=== PATIENT | female | born 1970 | race African-American/Black ===

== ENCOUNTER 2017-01-29 14:42 | Emergency (ER) | payer MEDICARE, MEDICAID ==
[~2017-01-29] VITALS: Ht 157.5 cm; Wt 66.0 kg
[~2017-01-29 14:42] MED LIST: ALPR1TAB2 PO; DIPH50CA4 PO; FLUT1DIS3 INH; LAMO200T PO; SIMV80TA70 PO; TOPI-35 PO; TRAZ-132 PO; VALS80TA25 PO; VENL-180 PO; ZIPR80CA9 PO; [UNRECOGNIZED DRUG - OTHER] PO
[2017-01-29] MEDS ORDERED: HYDROCODONE/ACETAMINOPHEN 5/325MG TABLET PO ONE (16:15)
[2017-01-29 18:39] VITALS: BP 110/65
== END 2017-01-29 18:50 | disposition home or self-care (01) ==
LOC: ER 17:53
DX: M25.561 Pain in right knee (principal); M25.562 Pain in left knee; J45.909 Unspecified asthma, uncomplicated; J44.9 Chronic obstructive pulmonary disease, unspecified; I10 Essential (primary) hypertension; Z87.898 Personal history of other specified conditions; F17.200 Nicotine dependence, unspecified, uncomplicated; Z92.29 Personal history of other drug therapy
CPT/HCPCS: 73562; 99284

== ENCOUNTER 2017-03-24 18:38 | Emergency (ER) | payer MEDICARE, MEDICAID ==
[~2017-03-24] VITALS: Ht 170.2 cm; Wt 91.0 kg
[2017-03-24 20:30] VITALS: BP 149/87
[2017-03-24] MEDS ORDERED: SODIUM CHLORIDE 0.9% 1,000 ML IV ONE (20:37)
[2017-03-24] MEDS ORDERED: MORPHINE SULFATE 4 MG/ML CPJ (NOT FOR IM USE) IV STA (20:37)
[2017-03-25] MEDS ORDERED: NICOTINE 7MG PATCH TD SCH (00:15)
[2017-03-25] MEDS ORDERED: HYDROCODONE/ACETAMINOPHEN 5/325MG TABLET PO ONE (00:30)
== END 2017-03-25 02:30 | disposition home or self-care (01) ==
LOC: ER 19:10
DX: M25.572 Pain in left ankle and joints of left foot (principal); M32.9 Systemic lupus erythematosus, unspecified; I10 Essential (primary) hypertension; J44.9 Chronic obstructive pulmonary disease, unspecified; Z88.6 Allergy status to analgesic agent; Z91.040 Latex allergy status; Z79.899 Other long term (current) drug therapy
CPT/HCPCS: 29505; 73610; 73630; 73700; 96361; 96374; 99285; J2270; J7030

== ENCOUNTER 2017-04-03 21:47 | Emergency (ER) | payer MEDICARE, MEDICAID ==
[~2017-04-03] VITALS: Ht 157.5 cm; Wt 114.0 kg
[~2017-04-03 21:47] MED LIST changes: -TOPI-35 PO; +TOPI100T37 PO
[2017-04-03] MEDS ORDERED: IPRATROPIUM BROMIDE (0.02%) 0.5MG/2.5ML NEB HHN STA (22:34)
[2017-04-03] MEDS ORDERED: METHYLPREDNISOLONE SOD SUCC 125 MG/2 ML VIAL IV STA (22:34)
[2017-04-03] MEDS ORDERED: ALBUTEROL (0.083%) 2.5MG/3ML NEB HHN STA (22:34)
[2017-04-03] MEDS ORDERED: LEVOFLOXACIN 750MG PREMIX 150 ML IV ONE (22:45)
[2017-04-03] MEDS ORDERED: ASPIRIN 81MG TABLET PO ONE (22:45)
[2017-04-03 23:19] LABS: BASOPHILS % 0.5 % (0.0-2.0); EOSINOPHILS % 0.9 % (0.0-5.0); HEMATOCRIT. 45.9 % (36.0-48.0); HEMOGLOBIN. 15.4 g/dL (12.0-16.0); LYMPHOCYTES % 22.8 % (20.0-50.0); MEAN CORPUSCULAR HEMOGLOBIN 31.5 pg (28.0-32.0); MEAN CORPUSCULAR VOLUME 93.8 fL (81.0-99.0); MEAN PLATELET VOLUME 7.8 fl (7.4-10.4); MONOCYTES % 10.6 % (2.0-8.0); NEUTROPHILS % 65.2 % (40.0-76.0); PLATELET 213 x1000/uL (130-400); RED BLOOD CELL COUNT 4.89 mill/uL (4.2-5.4); RED CELL DISTRIBUTION WIDTH 14.2 % (11.6-14.6)
[2017-04-03 23:24] LABS: INR 1.3
[2017-04-03 23:32] LABS: CARBON DIOXIDE 28 mEq/L (21-32); CHLORIDE 104 mEq/L (98-107); TROPONIN I < 0.02 ng/mL (0.00-0.04)
[2017-04-04 01:06] VITALS: BP 156/78
[2017-04-07] MEDS ORDERED: SOLI10TA PO (22:14)
[2017-05-12] MEDS ORDERED: FURO40TA5 PO (21:29)
[2017-05-12] MEDS ORDERED: POTA10TA11 PO (21:29)
== END 2017-04-04 01:47 | disposition home or self-care (01) ==
LOC: ER 22:36
DX: J44.1 Chronic obstructive pulmonary disease with (acute) exacerbation (principal); M32.9 Systemic lupus erythematosus, unspecified; I10 Essential (primary) hypertension; E66.9 Obesity, unspecified; F17.210 Nicotine dependence, cigarettes, uncomplicated; Z88.6 Allergy status to analgesic agent; Z88.3 Allergy status to other anti-infective agents; Z91.040 Latex allergy status; Z68.42 Body mass index [BMI] 45.0-49.9, adult; Z71.6 Tobacco abuse counseling
CPT/HCPCS: 36415; 71010; 80053; 83880; 84484; 85025; 85610; 93005; 94640; 96365; 96375; 99285; 99406; J1956; J2930; J7611

== ENCOUNTER 2017-04-06 17:11 | Inpatient (IN) | payer MEDICARE, MEDICAID ==
[~2017-04-06] VITALS: Ht 157.5 cm; Wt 89.8 kg
[~2017-04-06 17:11] MED LIST changes: +TOPI-35 PO; -TOPI100T37 PO
[2017-04-06] MEDS ORDERED: IPRATROPIUM BROMIDE (0.02%) 0.5MG/2.5ML NEB HHN STA (17:33)
[2017-04-06] MEDS ORDERED: ALBUTEROL (0.083%) 2.5MG/3ML NEB HHN STA (17:33)
[2017-04-06] MEDS: MAGNESIUM 2 G PREMIX 50 ML IV STA ×2 (17:59→18:01)
[2017-04-06] MEDS: ACETAMINOPHEN 325MG TABLET PO ONE ×2 (17:59→18:02)
[2017-04-06] MEDS: METHYLPREDNISOLONE SOD SUCC 125 MG/2 ML VIAL IV STA ×2 (17:59→18:01)
[2017-04-06] MEDS ORDERED: ONDANSETRON HCL 4MG/2ML VIAL IV ONE (19:45)
[2017-04-06] MEDS ORDERED: SODIUM CHLORIDE 0.9% 500 ML IV ONE (19:47)
[2017-04-06] MEDS ORDERED: HYDROCODONE/ACETAMINOPHEN 5/325MG TABLET PO ONE (20:00)
[2017-04-06 21:14] LABS: HEMATOCRIT. 46.8 % (36.0-48.0); HEMOGLOBIN. 15.6 g/dL (12.0-16.0); MEAN CORPUSCULAR HEMOGLOBIN 31.2 pg (28.0-32.0); MEAN CORPUSCULAR VOLUME 93.8 fL (81.0-99.0); MEAN PLATELET VOLUME 8.1 fl (7.4-10.4); PLATELET 199 x1000/uL (130-400); RED BLOOD CELL COUNT 4.99 mill/uL (4.2-5.4); RED CELL DISTRIBUTION WIDTH 14.3 % (11.6-14.6)
[2017-04-06 21:25] LABS: CHLORIDE 105 mEq/L (98-107)
[2017-04-06 21:33] LABS: CARBON DIOXIDE 22 mEq/L (21-32)
[2017-04-06 21:39] LABS: INR 1.1
[2017-04-06] MEDS ORDERED: DOCUSATE SODIUM 100MG CAPSULE PO PRN (21:45)
[2017-04-06] MEDS ORDERED: DIPHENHYDRAMINE 50MG/ML VIAL IV PRN (21:45)
[2017-04-06] MEDS ORDERED: MAGNESIUM/ALUMINUM HYDROXIDE/SIMETHICONE 30ML UDC PO PRN (21:45)
[2017-04-06] MEDS ORDERED: ACETAMINOPHEN 325MG TABLET PO PRN (21:45)
[2017-04-06] MEDS ORDERED: IPRATROPIUM/ALBUTEROL 0.5-3(2.5)MG/3ML NEB INH PRN (21:45)
[2017-04-06 21:52] LABS: PLATELET ESTIMATE NORMAL
[2017-04-06] MEDS: LORAZEPAM 2MG/ML CPJ IV PRN (23:02)
[2017-04-07 00:03] LABS: CARBON DIOXIDE 25 mEq/L (21-32); CHLORIDE 106 mEq/L (98-107); TROPONIN I < 0.02 ng/mL (0.00-0.04)
[2017-04-07] MEDS: METHYLPREDNISOLONE SOD SUCC 125 MG/2 ML VIAL IV SCH ×2 (02:05→20:26)
[2017-04-07] MEDS: LEVOFLOXACIN 500MG PREMIX 100 ML IV SCH (02:10)
[2017-04-07] MEDS: HYDROCODONE/ACETAMINOPHEN 5/325MG TABLET PO PRN (02:16)
[2017-04-07] MEDS: ONDANSETRON HCL 4MG/2ML VIAL IV PRN ×2 (02:17→20:40)
[2017-04-07] MEDS: DEXT 5%/0.45% NACL 1000ML 1,000 ML IV SCH ×2 (02:27→17:23)
[2017-04-07] MEDS: GUAIFENESIN 200MG/10ML SUGAR FREE UDC PO PRN ×4 (04:36→23:06)
[2017-04-07 05:24] LABS: HEMATOCRIT. 46.8 % (36.0-48.0); HEMOGLOBIN. 15.5 g/dL (12.0-16.0); MEAN CORPUSCULAR HEMOGLOBIN 30.8 pg (28.0-32.0); MEAN CORPUSCULAR VOLUME 93.4 fL (81.0-99.0); MEAN PLATELET VOLUME 7.8 fl (7.4-10.4); PLATELET 226 x1000/uL (130-400); RED BLOOD CELL COUNT 5.01 mill/uL (4.2-5.4); RED CELL DISTRIBUTION WIDTH 14.5 % (11.6-14.6)
[2017-04-07 05:39] LABS: CARBON DIOXIDE 26 mEq/L (21-32); CHLORIDE 107 mEq/L (98-107); LDL CHOLESTEROL 86 mg/dL (5-100); TROPONIN I < 0.02 ng/mL (0.00-0.04)
[2017-04-07 05:40] LABS: HDL CHOLESTEROL 60 mg/dL (40-59)
[2017-04-07 06:42] LABS: PLATELET ESTIMATE NORMAL
[2017-04-07] MEDS: ENOXAPARIN 30MG/0.3ML SYR SUBCUT SCH ×2 (09:38→20:28)
[2017-04-07 12:00] VITALS: BP 145/95
[2017-04-07] MEDS: HYDROMORPHONE HCL/PF 2MG/ML CPJ IV PRN ×3 (12:42→23:14)
[2017-04-07 12:53] VITALS: BP 145/95
[2017-04-07 16:00] VITALS: BP 161/98
[2017-04-07] MEDS: IPRATROPIUM/ALBUTEROL 0.5-3(2.5)MG/3ML NEB HHN SCH ×2 (17:15→20:51)
[2017-04-07] MEDS: NICOTINE 14MG PATCH TD SCH (17:16)
[2017-04-07 20:00] VITALS: BP 136/82
[2017-04-07] MEDS: GUAIFENESIN 600MG ER TABLET PO SCH (20:27)
[2017-04-07] MEDS: LORAZEPAM 2MG/ML CPJ IV PRN (20:40)
[2017-04-07] MEDS ORDERED: SOLI10TA4 PO (22:14)
[2017-04-08] VITALS (9 sets, daily range): BP systolic 120–167; BP diastolic 87–106
[2017-04-08] MEDS: IPRATROPIUM/ALBUTEROL 0.5-3(2.5)MG/3ML NEB HHN SCH ×5 (00:40→21:05)
[2017-04-08] MEDS: LEVOFLOXACIN 500MG PREMIX 100 ML IV SCH (01:25)
[2017-04-08] MEDS: ONDANSETRON HCL 4MG/2ML VIAL IV PRN ×4 (03:55→20:44)
[2017-04-08] MEDS: METHYLPREDNISOLONE SOD SUCC 125 MG/2 ML VIAL IV SCH ×4 (03:55→20:42)
[2017-04-08] MEDS: GUAIFENESIN 200MG/10ML SUGAR FREE UDC PO PRN (05:03)
[2017-04-08] MEDS: HYDROMORPHONE HCL/PF 2MG/ML CPJ IV PRN ×3 (05:03→21:18)
[2017-04-08] MEDS: CLONIDINE 0.1MG TABLET PO PRN (05:03)
[2017-04-08 07:50] LABS: CHLORIDE 105 mEq/L (98-107)
[2017-04-08 07:55] LABS: CARBON DIOXIDE 27 mEq/L (21-32)
[2017-04-08 08:17] LABS: HEMATOCRIT. 44.3 % (36.0-48.0); HEMOGLOBIN. 14.9 g/dL (12.0-16.0); MEAN CORPUSCULAR HEMOGLOBIN 31.4 pg (28.0-32.0); MEAN CORPUSCULAR VOLUME 93.7 fL (81.0-99.0); MEAN PLATELET VOLUME 8.4 fl (7.4-10.4); PLATELET 210 x1000/uL (130-400); RED BLOOD CELL COUNT 4.73 mill/uL (4.2-5.4); RED CELL DISTRIBUTION WIDTH 14.4 % (11.6-14.6)
[2017-04-08] MEDS: FUROSEMIDE 40MG/4ML VIAL IV SCH (09:00)
[2017-04-08] MEDS: NICOTINE 14MG PATCH TD SCH (09:01)
[2017-04-08] MEDS: GUAIFENESIN 600MG ER TABLET PO SCH ×2 (09:01→20:43)
[2017-04-08] MEDS: ENOXAPARIN 30MG/0.3ML SYR SUBCUT SCH ×2 (09:01→20:44)
[2017-04-08] MEDS: DEXT 5%/0.45% NACL 1000ML 1,000 ML IV SCH (09:03)
[2017-04-08] MEDS ORDERED: [UNRECOGNIZED DRUG - OTHER] PO SCH (10:15)
[2017-04-08] MEDS ORDERED: NORE0.3520 PO (10:37)
[2017-04-08] MEDS ORDERED: NON FORMULARY PATIENT HOME MED EA XX SCH (13:15)
[2017-04-08 13:45] LABS: PLATELET ESTIMATE NORMAL
[2017-04-08] MEDS: LORAZEPAM 2MG/ML CPJ IV PRN (18:08)
[2017-04-08] MEDS: DIPHENHYDRAMINE 50MG CAPSULE PO SCH (20:42)
[2017-04-08] MEDS: LAMOTRIGINE 100MG TABLET PO SCH (20:43)
[2017-04-08] MEDS: ZIPRASIDONE HCL 80MG CAPSULE PO SCH (20:43)
[2017-04-08] MEDS: TRAZODONE HCL 100MG TABLET PO SCH (20:43)
[2017-04-08] MEDS: ATORVASTATIN CALCIUM 40MG TABLET PO SCH (20:43)
[2017-04-08] MEDS: TOPIRAMATE 100MG TABLET PO SCH (20:44)
[2017-04-08] MEDS ORDERED: MEDICATION NOT ON FORMULARY EA (Lamotrigine 1 TAB) PO SCH (21:00)
[2017-04-09] VITALS (7 sets, daily range): BP systolic 133–163; BP diastolic 81–100
[2017-04-09] MEDS: CLONIDINE 0.1MG TABLET PO PRN (00:22)
[2017-04-09] MEDS: HYDROMORPHONE HCL/PF 2MG/ML CPJ IV PRN ×5 (00:52→22:50)
[2017-04-09] MEDS: GUAIFENESIN 200MG/10ML SUGAR FREE UDC PO PRN ×5 (00:52→22:49)
[2017-04-09] MEDS: IPRATROPIUM/ALBUTEROL 0.5-3(2.5)MG/3ML NEB HHN SCH ×6 (01:10→20:44)
[2017-04-09] MEDS: LEVOFLOXACIN 500MG PREMIX 100 ML IV SCH (01:20)
[2017-04-09] MEDS: ONDANSETRON HCL 4MG/2ML VIAL IV PRN ×3 (03:29→20:47)
[2017-04-09] MEDS: METHYLPREDNISOLONE SOD SUCC 125 MG/2 ML VIAL IV SCH ×4 (03:29→20:47)
[2017-04-09] MEDS: DEXT 5%/0.45% NACL 1000ML 1,000 ML IV SCH ×2 (03:30→09:56)
[2017-04-09] MEDS ORDERED: MEDICATION NOT ON FORMULARY EA (Simvastatin 1 TAB) PO SCH (09:00)
[2017-04-09] MEDS ORDERED: VENLAFAXINE HCL 75MG TABLET PO SCH (09:00)
[2017-04-09] MEDS ORDERED: NORETHINDRONE 5 MG PO SCH (09:00)
[2017-04-09] MEDS: FUROSEMIDE 40MG/4ML VIAL IV SCH (09:20)
[2017-04-09] MEDS: ENOXAPARIN 30MG/0.3ML SYR SUBCUT SCH ×2 (09:21→20:46)
[2017-04-09] MEDS: VENLAFAXINE HCL 50MG TABLET PO SCH (09:21)
[2017-04-09] MEDS: TOPIRAMATE 100MG TABLET PO SCH ×2 (09:21→20:47)
[2017-04-09] MEDS: VENLAFAXINE HCL 75MG TABLET PO SCH (09:31)
[2017-04-09] MEDS: NICOTINE 14MG PATCH TD SCH (09:32)
[2017-04-09] MEDS: GUAIFENESIN 600MG ER TABLET PO SCH ×2 (09:33→20:48)
[2017-04-09] MEDS: LORAZEPAM 2MG/ML CPJ IV PRN ×2 (18:37→22:50)
[2017-04-09] MEDS: TRAZODONE HCL 100MG TABLET PO SCH (20:47)
[2017-04-09] MEDS: ATORVASTATIN CALCIUM 40MG TABLET PO SCH (20:47)
[2017-04-09] MEDS: DIPHENHYDRAMINE 50MG CAPSULE PO SCH (20:47)
[2017-04-09] MEDS: ZIPRASIDONE HCL 80MG CAPSULE PO SCH (20:48)
[2017-04-09] MEDS: LAMOTRIGINE 100MG TABLET PO SCH (20:48)
[2017-04-10] VITALS: BP 149/99
[2017-04-10] MEDS: LEVOFLOXACIN 500MG PREMIX 100 ML IV SCH (00:06)
[2017-04-10] MEDS: IPRATROPIUM/ALBUTEROL 0.5-3(2.5)MG/3ML NEB HHN SCH ×4 (00:48→12:13)
[2017-04-10] MEDS: METHYLPREDNISOLONE SOD SUCC 125 MG/2 ML VIAL IV SCH ×2 (03:38→08:59)
[2017-04-10] MEDS: ONDANSETRON HCL 4MG/2ML VIAL IV PRN (03:38)
[2017-04-10 04:00] VITALS: BP 145/92
[2017-04-10] MEDS: GUAIFENESIN 200MG/10ML SUGAR FREE UDC PO PRN (05:10)
[2017-04-10] MEDS: HYDROMORPHONE HCL/PF 2MG/ML CPJ IV PRN (05:10)
[2017-04-10 07:27] LABS: BASOPHILS % 0.1 % (0.0-2.0); EOSINOPHILS % 0.1 % (0.0-5.0); HEMATOCRIT. 43.5 % (36.0-48.0); HEMOGLOBIN. 14.4 g/dL (12.0-16.0); LYMPHOCYTES % 7.6 % (20.0-50.0); MEAN CORPUSCULAR HEMOGLOBIN 31.2 pg (28.0-32.0); MEAN CORPUSCULAR VOLUME 94.1 fL (81.0-99.0); MONOCYTES % 6.9 % (2.0-8.0); NEUTROPHILS % 85.3 % (40.0-76.0); PLATELET 214 x1000/uL (130-400); RED BLOOD CELL COUNT 4.63 mill/uL (4.2-5.4); RED CELL DISTRIBUTION WIDTH 14.4 % (11.6-14.6)
[2017-04-10 08:04] LABS: CARBON DIOXIDE 30 mEq/L (21-32); CHLORIDE 105 mEq/L (98-107)
[2017-04-10 08:07] VITALS: BP 136/86
[2017-04-10] MEDS: NICOTINE 14MG PATCH TD SCH (08:56)
[2017-04-10] MEDS: TOPIRAMATE 100MG TABLET PO SCH (08:57)
[2017-04-10] MEDS: GUAIFENESIN 600MG ER TABLET PO SCH (08:57)
[2017-04-10] MEDS: VENLAFAXINE HCL 75MG TABLET PO SCH (08:57)
[2017-04-10] MEDS: VENLAFAXINE HCL 50MG TABLET PO SCH (08:58)
[2017-04-10] MEDS: FUROSEMIDE 40MG/4ML VIAL IV SCH (08:58)
[2017-04-10] MEDS: ENOXAPARIN 30MG/0.3ML SYR SUBCUT SCH (09:03)
[2017-04-10 09:08] LABS: BG BASE EXCESS 2.6 mmol/L (-2.0-2.0); BG CARBOXYHEMOGLOBIN 0.8 % (0.5-1.5); BG FRACTION INSPIRED OXYGEN 32; BG HCO3 ACT 29.1 mmol/L (22.0-26.0); BG METHEMOGLOBIN 0.3 % (0.0-1.5); BG OXYHEMOGLOBIN 94.9 % (94.0-97.0); BG PCO2 51.6 mmHg (35.0-45.0); BG PH 7.369 (7.350-7.450); BG PO2 84.4 mmHg (75.0-100.0); BG SAMPLE SITE LEFT BRACHIAL; BG TOTAL HEMOGLOBIN 15.9 g/dL (12.0-18.0); BG VENT MODE MASK - BIPAP
[2017-04-10] MEDS: HYDROCODONE/ACETAMINOPHEN 5/325MG TABLET PO PRN (09:30)
[2017-04-10 12:05] VITALS: BP 145/83
== END 2017-04-10 13:10 | disposition home or self-care (01) | DRG 189 ==
LOC: ER 17:55 → 6WST 21:35 → ENRESERV 04-07 09:12
PROVIDERS: ADMIT Internal Medicine; ATTEND Internal Medicine
PROC: 5A09357 Assistance with Respiratory Ventilation, Less than 24 Consecutive Hours, Continuous Positive Airway Pressure (ICD-10-PCS; principal; 2017-04-08)
DX: J96.00 Acute respiratory failure, unspecified whether with hypoxia or hypercapnia (principal); J18.9 Pneumonia, unspecified organism; J44.0 Chronic obstructive pulmonary disease with (acute) lower respiratory infection; J44.1 Chronic obstructive pulmonary disease with (acute) exacerbation; R65.10 Systemic inflammatory response syndrome (SIRS) of non-infectious origin without acute organ dysfunction; E66.01 Morbid (severe) obesity due to excess calories; E78.5 Hyperlipidemia, unspecified; E87.6 Hypokalemia; F17.210 Nicotine dependence, cigarettes, uncomplicated; F31.9 Bipolar disorder, unspecified; G47.30 Sleep apnea, unspecified; Z96.641 Presence of right artificial hip joint; I10 Essential (primary) hypertension; J20.9 Acute bronchitis, unspecified; M32.9 Systemic lupus erythematosus, unspecified; D72.829 Elevated white blood cell count, unspecified; G60.0 Hereditary motor and sensory neuropathy; T38.0X5A Adverse effect of glucocorticoids and synthetic analogues, initial encounter; Z79.51 Long term (current) use of inhaled steroids; Z79.899 Other long term (current) drug therapy; Z99.81 Dependence on supplemental oxygen; Z71.3 Dietary counseling and surveillance; Z88.8 Allergy status to other drugs, medicaments and biological substances; Z88.6 Allergy status to analgesic agent; Z91.040 Latex allergy status; Z83.6 Family history of other diseases of the respiratory system; Z68.36 Body mass index [BMI] 36.0-36.9, adult
CPT/HCPCS: 36415; 36600; 71010; 80048; 80053; 80061; 82375; 82805; 84484; 85025; 85610; 87040; 93005; 94640; 94660; 96361; 96365; 96367; 96375; 97163; 99285; C1893; J1170; J1200; J1650; J1940; J1956; J2060; J2405; J2930; J3475; J7030; J7040; J7050; J7611; J7620; Q0163

== ENCOUNTER 2017-05-08 14:42 | Emergency (ER) | payer MEDICARE, MEDICAID ==
[~2017-05-08] VITALS: Ht 162.6 cm; Wt 90.0 kg
[~2017-05-08 14:42] MED LIST changes: +SOLI10TA4 PO; -[UNRECOGNIZED DRUG - OTHER] PO
[2017-05-08] MEDS ORDERED: IPRATROPIUM/ALBUTEROL 0.5-3(2.5)MG/3ML NEB HHN ONE (15:30)
[2017-05-08] MEDS ORDERED: CYCLOBENZAPRINE 10MG TABLET PO ONE (15:30)
[2017-05-08] MEDS ORDERED: MORPHINE SULFATE 2 MG/ML CPJ (NOT FOR IM USE) SQ ONE (16:00)
[2017-05-08 17:51] VITALS: BP 132/80
[2017-05-12] MEDS ORDERED: POTA10TA69 PO (21:29)
[2017-05-12] MEDS ORDERED: FURO40TA5 PO (21:29)
== END 2017-05-08 18:09 | disposition home or self-care (01) ==
LOC: ER 15:01
DX: M25.511 Pain in right shoulder (principal); J44.9 Chronic obstructive pulmonary disease, unspecified; I10 Essential (primary) hypertension; G60.0 Hereditary motor and sensory neuropathy; Z99.3 Dependence on wheelchair; F31.9 Bipolar disorder, unspecified; M32.9 Systemic lupus erythematosus, unspecified
CPT/HCPCS: 73030; 94640; 96372; 99284; J2270; J7620

== ENCOUNTER 2017-07-03 14:23 | Inpatient (IN) | payer MEDICARE, MEDICAID ==
[~2017-07-03] VITALS: Ht 157.5 cm; Wt 115.2 kg
[~2017-07-03 14:23] MED LIST changes: +FURO40TA5 PO; +POTA10TA11 PO; +SOLI10TA PO; -SOLI10TA4 PO; -TOPI-35 PO; +TOPI100T37 PO
[2017-07-03] MEDS ORDERED: IOHEXOL-350 100 ML BOTTLE ONE (16:04)
[2017-07-03] MEDS ORDERED: SODIUM CHLORIDE 0.9% 10ML VIAL ONE (16:04)
[2017-07-03] MEDS ORDERED: ASPIRIN 81MG TABLET PO STA (17:52)
[2017-07-03] MEDS: NITROGLYCERIN 0.4MG TABLET SL SL PRN ×2 (18:22→23:23)
[2017-07-03 18:38] LABS: BASOPHILS % 0.6 % (0.0-2.0); EOSINOPHILS % 0.9 % (0.0-5.0); HEMOGLOBIN. 16.2 g/dL (12.0-16.0); LYMPHOCYTES % 32.9 % (20.0-50.0); MEAN CORPUSCULAR HEMOGLOBIN 31.2 pg (28.0-32.0); MEAN CORPUSCULAR VOLUME 94.3 fL (81.0-99.0); MONOCYTES % 9.5 % (2.0-8.0); NEUTROPHILS % 56.1 % (40.0-76.0); PLATELET 240 x1000/uL (130-400); RED BLOOD CELL COUNT 5.19 mill/uL (4.2-5.4); RED CELL DISTRIBUTION WIDTH 14.8 % (11.6-14.6)
[2017-07-03 18:40] LABS: INR 1.2; PARTIAL THROMBOPLASTIN TIME 26.8 sec (23.4-31.0); PROTHROMBIN TIME 12.7 sec (9.4-11.6)
[2017-07-03 18:42] LABS: HCG SCREEN NEGATIVE
[2017-07-03 18:45] LABS: CARBON DIOXIDE 25 mEq/L (21-32); CHLORIDE 104 mEq/L (98-107)
[2017-07-03 18:50] LABS: TROPONIN I < 0.02 ng/mL (0.00-0.04)
[2017-07-03] MEDS ORDERED: ONDANSETRON HCL 4MG/2ML VIAL IV STA (20:41)
[2017-07-03] MEDS ORDERED: MORPHINE SULFATE 4 MG/ML CPJ (NOT FOR IM USE) IV STA (20:41)
[2017-07-03] MEDS ORDERED: GUAIFENESIN 200MG/10ML SUGAR FREE UDC PO PRN (22:00)
[2017-07-03] MEDS ORDERED: IPRATROPIUM/ALBUTEROL 0.5-3(2.5)MG/3ML NEB INH PRN (22:00)
[2017-07-03] MEDS ORDERED: MAGNESIUM/ALUMINUM HYDROXIDE/SIMETHICONE 30ML UDC PO PRN (22:00)
[2017-07-03] MEDS ORDERED: NA PHOS,M-B/NA PHOS,DI-BA ENEMA 118ML PR PRN (22:00)
[2017-07-03] MEDS ORDERED: DIPHENHYDRAMINE 50MG/ML VIAL IV PRN (22:00)
[2017-07-03] MEDS ORDERED: ENOXAPARIN 40MG/0.4ML SYR SUBCUT SCH (22:00)
[2017-07-03] MEDS ORDERED: ONDANSETRON HCL 4MG/2ML VIAL IV PRN (22:00)
[2017-07-03] MEDS ORDERED: ACETAMINOPHEN 325MG TABLET PO PRN (22:00)
[2017-07-03] MEDS ORDERED: CLONIDINE 0.1MG TABLET PO PRN (22:00)
[2017-07-03 23:28] LABS: CREATINE KINASE 57 IU/L (26-192); HDL CHOLESTEROL 53 mg/dL (40-59); LDL CHOLESTEROL 99 mg/dL (5-100); TROPONIN I < 0.02 ng/mL (0.00-0.04)
[2017-07-03 23:29] LABS: CREATINE KINASE MB FRACTION < 0.5 ng/mL (0.5-3.6)
[2017-07-04] MEDS ORDERED: ZOLPIDEM TARTRATE 5MG TABLET PO PRN (02:24)
[2017-07-04 02:25] VITALS: BP 121/75
[2017-07-04] MEDS ORDERED: ENOXAPARIN 40MG/0.4ML SYR SUBCUT SCH (02:30)
[2017-07-04] MEDS: MORPHINE SULFATE 4 MG/ML CPJ (NOT FOR IM USE) IV PRN ×4 (03:21→22:26)
[2017-07-04 04:00] VITALS: BP 122/77
[2017-07-04] MEDS ORDERED: CEFTRIAXONE 1 G PREMIX 50 ML IV SCH (04:00)
[2017-07-04] MEDS ORDERED: AZITHROMYCIN 500 MG in DEXT 5% WATER 250 ML IV SCH (05:00)
[2017-07-04 06:56] LABS: CLARITY URINE CLEAR (CLEAR); COLOR URINE YELLOW (YELLOW); GLUCOSE URINE NEGATIVE (NEGATIVE); KETONES URINE NEGATIVE (NEGATIVE); LEUKOCYTE ESTERASE URINE NEGATIVE (NEGATIVE); NITRITE URINE NEGATIVE (NEGATIVE); OCCULT BLOOD URINE NEGATIVE (NEGATIVE); PROTEIN URINE NEGATIVE (NEGATIVE); SPECIFIC GRAVITY URINE 1.065 (1.005-1.030); UROBILINOGEN URINE 0.2 E.U./dL (0.2-1.0)
[2017-07-04] MEDS: METHYLPREDNISOLONE SOD SUCC 125 MG/2 ML VIAL IV SCH ×3 (07:01→22:28)
[2017-07-04 07:26] LABS: *AMPHETAMINES SCREEN URINE NEGATIVE (NEGATIVE); *BARBITURATES SCREEN URINE NEGATIVE (NEGATIVE); *COCAINE SCREEN URINE NEGATIVE (NEGATIVE); CANNABINOID URINE SCREEN NEGATIVE (NEGATIVE); METHADONE URINE SCREEN NEGATIVE (NEGATIVE); PHENCYCLIDINE URINE SCREEN NEGATIVE (NEGATIVE)
[2017-07-04 07:27] LABS: *BENZODIAZEPINES SCREEN URINE PRESUMTIVE POSITIVE (NEGATIVE); OPIATES URINE SCREEN PRESUMTIVE POSITIVE (NEGATIVE)
[2017-07-04 07:50] LABS: CREATINE KINASE 65 IU/L (26-192); CREATINE KINASE MB FRACTION 0.9 ng/mL (0.5-3.6); TROPONIN I < 0.02 ng/mL (0.00-0.04)
[2017-07-04 08:00] VITALS: BP 105/73
[2017-07-04] MEDS: GUAIFENESIN/DM 600MG/30MG ER TAB 12HR PO SCH ×2 (08:26→22:28)
[2017-07-04] MEDS: TOPIRAMATE 100MG TABLET PO SCH ×2 (08:26→22:28)
[2017-07-04] MEDS: FAMOTIDINE 20MG/2ML VIAL IV SCH ×2 (08:26→22:27)
[2017-07-04] MEDS: ENOXAPARIN 40MG/0.4ML SYR SUBCUT SCH ×2 (08:27→22:26)
[2017-07-04] MEDS: ASPIRIN 325MG EC TABLET PO SCH (08:28)
[2017-07-04] MEDS: LORAZEPAM 2MG/ML CPJ IV PRN (09:15)
[2017-07-04 12:00] VITALS: BP 135/84
[2017-07-04] MEDS: NICOTINE 7MG PATCH TD SCH (12:29)
[2017-07-04] MEDS: NITROGLYCERIN 0.4MG TABLET SL SL PRN (15:06)
[2017-07-04] MEDS: VENLAFAXINE HCL 75MG TABLET PO SCH (15:06)
[2017-07-04 16:00] VITALS: BP 133/88
[2017-07-04 20:00] VITALS: BP 152/95
[2017-07-04] MEDS: TRAZODONE HCL 50MG TABLET PO SCH (22:27)
[2017-07-04] MEDS: LAMOTRIGINE 100MG TABLET PO SCH (22:28)
[2017-07-04] MEDS: ZIPRASIDONE HCL 60MG CAPSULE PO SCH (22:28)
[2017-07-05] VITALS: BP 131/89
[2017-07-05] MEDS: IPRATROPIUM/ALBUTEROL 0.5-3(2.5)MG/3ML NEB HHN SCH ×6 (00:16→20:43)
[2017-07-05 04:00] VITALS: BP 128/81
[2017-07-05] MEDS: METHYLPREDNISOLONE SOD SUCC 125 MG/2 ML VIAL IV SCH ×3 (05:46→21:31)
[2017-07-05] MEDS: MORPHINE SULFATE 4 MG/ML CPJ (NOT FOR IM USE) IV PRN ×4 (06:49→21:32)
[2017-07-05 07:26] LABS: BASOPHILS % 0.2 % (0.0-2.0); HEMATOCRIT. 49.3 % (36.0-48.0); HEMOGLOBIN. 16.5 g/dL (12.0-16.0); LYMPHOCYTES % 7.3 % (20.0-50.0); MEAN CORPUSCULAR HEMOGLOBIN 31.4 pg (28.0-32.0); MEAN CORPUSCULAR VOLUME 93.7 fL (81.0-99.0); MEAN PLATELET VOLUME 8.5 fl (7.4-10.4); NEUTROPHILS % 89.5 % (40.0-76.0); PLATELET 264 x1000/uL (130-400); RED BLOOD CELL COUNT 5.26 mill/uL (4.2-5.4); RED CELL DISTRIBUTION WIDTH 14.4 % (11.6-14.6)
[2017-07-05 08:00] VITALS: BP 133/92
[2017-07-05 08:28] LABS: CARBON DIOXIDE 24 mEq/L (21-32); CHLORIDE 106 mEq/L (98-107)
[2017-07-05] MEDS ORDERED: CEFTRIAXONE 1 G PREMIX 50 ML IV SCH (09:00)
[2017-07-05] MEDS: ENOXAPARIN 40MG/0.4ML SYR SUBCUT SCH ×2 (09:33→20:22)
[2017-07-05] MEDS: AZITHROMYCIN 500 MG in DEXT 5% WATER 250 ML IV SCH (09:33)
[2017-07-05] MEDS: FAMOTIDINE 20MG/2ML VIAL IV SCH ×2 (09:33→20:22)
[2017-07-05] MEDS: VENLAFAXINE HCL 75MG TABLET PO SCH (09:33)
[2017-07-05] MEDS: TOPIRAMATE 100MG TABLET PO SCH ×2 (09:33→20:22)
[2017-07-05] MEDS: GUAIFENESIN/DM 600MG/30MG ER TAB 12HR PO SCH ×2 (09:33→20:22)
[2017-07-05] MEDS: ASPIRIN 325MG EC TABLET PO SCH (09:33)
[2017-07-05] MEDS: NICOTINE 7MG PATCH TD SCH (09:34)
[2017-07-05 12:00] VITALS: BP 116/69
[2017-07-05] MEDS: NITROGLYCERIN 0.4MG TABLET SL SL PRN (12:11)
[2017-07-05] MEDS: LORAZEPAM 2MG/ML CPJ IV PRN (13:11)
[2017-07-05 16:00] VITALS: BP 134/86
[2017-07-05 20:00] VITALS: BP 133/75
[2017-07-05] MEDS: DOCUSATE SODIUM 100MG CAPSULE PO PRN (20:22)
[2017-07-05] MEDS: ZIPRASIDONE HCL 60MG CAPSULE PO SCH (20:22)
[2017-07-05] MEDS: TRAZODONE HCL 50MG TABLET PO SCH (20:22)
[2017-07-05] MEDS: LAMOTRIGINE 100MG TABLET PO SCH (20:23)
[2017-07-06] VITALS: BP 121/76
[2017-07-06] MEDS: IPRATROPIUM/ALBUTEROL 0.5-3(2.5)MG/3ML NEB HHN SCH ×3 (00:26→07:37)
[2017-07-06] MEDS: MORPHINE SULFATE 4 MG/ML CPJ (NOT FOR IM USE) IV PRN ×3 (01:28→09:50)
[2017-07-06 04:00] VITALS: BP 127/74
[2017-07-06] MEDS: METHYLPREDNISOLONE SOD SUCC 125 MG/2 ML VIAL IV SCH (05:48)
[2017-07-06 07:36] VITALS: BP 138/84
[2017-07-06] MEDS: AZITHROMYCIN 500 MG in DEXT 5% WATER 250 ML IV SCH (08:37)
[2017-07-06] MEDS: ASPIRIN 325MG EC TABLET PO SCH (08:38)
[2017-07-06] MEDS: TOPIRAMATE 100MG TABLET PO SCH (08:38)
[2017-07-06] MEDS: FAMOTIDINE 20MG/2ML VIAL IV SCH (08:38)
[2017-07-06] MEDS: ENOXAPARIN 40MG/0.4ML SYR SUBCUT SCH (08:38)
[2017-07-06] MEDS: VENLAFAXINE HCL 75MG TABLET PO SCH (08:38)
[2017-07-06] MEDS: NICOTINE 7MG PATCH TD SCH (08:39)
[2017-07-06] MEDS: DOCUSATE SODIUM 100MG CAPSULE PO PRN (08:44)
[2017-07-06] MEDS: GUAIFENESIN/DM 600MG/30MG ER TAB 12HR PO SCH (08:53)
[2017-07-06 09:40] VITALS: BP 138/84
[2017-07-06 09:50] VITALS: BP 138/84
[2017-07-06] MEDS ORDERED: DOBUTAMINE 250MG PREMIX 250 ML IV SCH (10:30)
== END 2017-07-06 10:40 | disposition home or self-care (01) | DRG 190 ==
LOC: ER 16:28 → EDBEDREQ 19:23 → EDBEDREQTM 19:23 → 8WST 19:24 → SUPCPDRO 19:40 → ENRESERV 20:02
PROVIDERS: ADMIT Internal Medicine; ATTEND Internal Medicine
DX: J44.0 Chronic obstructive pulmonary disease with (acute) lower respiratory infection (principal); J18.9 Pneumonia, unspecified organism; M32.9 Systemic lupus erythematosus, unspecified; Z99.81 Dependence on supplemental oxygen; I11.9 Hypertensive heart disease without heart failure; G60.0 Hereditary motor and sensory neuropathy; Z68.42 Body mass index [BMI] 45.0-49.9, adult; R07.89 Other chest pain; F31.9 Bipolar disorder, unspecified; G47.33 Obstructive sleep apnea (adult) (pediatric); E78.00 Pure hypercholesterolemia, unspecified; F17.210 Nicotine dependence, cigarettes, uncomplicated; Z96.641 Presence of right artificial hip joint; Z88.8 Allergy status to other drugs, medicaments and biological substances; Z88.6 Allergy status to analgesic agent; Z91.040 Latex allergy status; Z79.899 Other long term (current) drug therapy; Z71.6 Tobacco abuse counseling
CPT/HCPCS: 36415; 71010; 71275; 80048; 80053; 80061; 80305; 81003; 82550; 82553; 83036; 83735; 83880; 84145; 84443; 84484; 84703; 85025; 85610; 85730; 87040; 87086; 93005; 93306; 93970; 94640; 96365; 96367; 96368; 96375; 97162; 99285; A4216; C1893; J0456; J0696; J1650; J2060; J2270; J2405; J2930; J3490; J7050; J7060; J7620; Q9967

== ENCOUNTER 2017-07-09 17:07 | Emergency (ER) | payer MEDICARE, MEDICAID ==
[~2017-07-09] VITALS: Ht 160 cm; Wt 200.0 kg
[2017-07-09] MEDS ORDERED: ONDANSETRON HCL 4MG/2ML VIAL IV STA (21:12)
[2017-07-09] MEDS ORDERED: METHYLPREDNISOLONE SOD SUCC 125 MG/2 ML VIAL IV STA (21:12)
[2017-07-09] MEDS ORDERED: MORPHINE SULFATE 4 MG/ML CPJ (NOT FOR IM USE) IV STA (21:12)
[2017-07-09] MEDS ORDERED: IPRATROPIUM/ALBUTEROL 0.5-3(2.5)MG/3ML NEB HHN ONE (21:15)
[2017-07-09] MEDS ORDERED: LEVOFLOXACIN 750MG PREMIX 150 ML IV ONE (21:15)
[2017-07-09 21:52] LABS: CHLORIDE 110 mEq/L (98-107)
[2017-07-09 21:54] LABS: INR 1.1; PARTIAL THROMBOPLASTIN TIME 21.1 sec (23.4-31.0); PROTHROMBIN TIME 11.9 sec (9.4-11.6)
[2017-07-09 21:55] LABS: CARBON DIOXIDE 23 mEq/L (21-32)
[2017-07-09 22:01] LABS: CREATINE KINASE 32 IU/L (26-192); TROPONIN I < 0.02 ng/mL (0.00-0.04)
[2017-07-09 22:02] LABS: HCG SCREEN NEGATIVE
[2017-07-09 22:08] LABS: BG CARBOXYHEMOGLOBIN 5.5 % (0.5-1.5); BG DEOXYHEMOGLOBIN 6.4 % (0.0-5.0); BG FRACTION INSPIRED OXYGEN 21; BG HCO3 ACT 20.2 mmol/L (22.0-26.0); BG OXYGEN SATURATION 93.2 % (92.0-98.5); BG OXYHEMOGLOBIN 88.1 % (94.0-97.0); BG PCO2 31.6 mmHg (35.0-45.0); BG PH 7.424 (7.350-7.450); BG PO2 63.2 mmHg (75.0-100.0); BG SAMPLE SITE LEFT RADIAL; BG TOTAL HEMOGLOBIN 16.1 g/dL (12.0-18.0); BG VENT MODE ROOM AIR
[2017-07-09 23:22] LABS: BASOPHILS % 0.3 % (0.0-2.0); EOSINOPHILS % 0.4 % (0.0-5.0); HEMATOCRIT. 46.4 % (36.0-48.0); HEMOGLOBIN. 15.5 g/dL (12.0-16.0); LYMPHOCYTES % 26.9 % (20.0-50.0); MEAN CORPUSCULAR HEMOGLOBIN 31.4 pg (28.0-32.0); MEAN CORPUSCULAR VOLUME 94.2 fL (81.0-99.0); MEAN PLATELET VOLUME 7.8 fl (7.4-10.4); MONOCYTES % 5.1 % (2.0-8.0); NEUTROPHILS % 67.3 % (40.0-76.0); PLATELET 227 x1000/uL (130-400); RED BLOOD CELL COUNT 4.92 mill/uL (4.2-5.4); RED CELL DISTRIBUTION WIDTH 14.5 % (11.6-14.6)
[2017-07-09 23:35] LABS: *AMPHETAMINES SCREEN URINE NEGATIVE (NEGATIVE); *BARBITURATES SCREEN URINE NEGATIVE (NEGATIVE); *COCAINE SCREEN URINE NEGATIVE (NEGATIVE); CANNABINOID URINE SCREEN NEGATIVE (NEGATIVE); METHADONE URINE SCREEN NEGATIVE (NEGATIVE); PHENCYCLIDINE URINE SCREEN NEGATIVE (NEGATIVE)
[2017-07-09 23:47] LABS: *BENZODIAZEPINES SCREEN URINE PRESUMTIVE POSITIVE (NEGATIVE); OPIATES URINE SCREEN PRESUMTIVE POSITIVE (NEGATIVE)
[2017-07-10 01:00] VITALS: BP 139/94
== END 2017-07-10 01:00 | disposition home or self-care (01) ==
LOC: ER 18:29
DX: J20.9 Acute bronchitis, unspecified (principal); R07.89 Other chest pain; G47.33 Obstructive sleep apnea (adult) (pediatric); J84.9 Interstitial pulmonary disease, unspecified; I10 Essential (primary) hypertension; M32.9 Systemic lupus erythematosus, unspecified; J44.9 Chronic obstructive pulmonary disease, unspecified; F17.210 Nicotine dependence, cigarettes, uncomplicated; G60.0 Hereditary motor and sensory neuropathy; Z88.6 Allergy status to analgesic agent; Z91.040 Latex allergy status
CPT/HCPCS: 36415; 36600; 71010; 80053; 80305; 82375; 82550; 82805; 83690; 83880; 84443; 84484; 84703; 85025; 85610; 85730; 93005; 94640; 96365; 96366; 96375; 99285; J1956; J2270; J2405; J2930; J7620

== ENCOUNTER 2017-07-12 12:01 | Inpatient (IN) | payer MEDICARE, MEDICAID ==
[~2017-07-12] VITALS: Ht 157.5 cm; Wt 117.9 kg
[2017-07-12] MEDS ORDERED: ONDANSETRON HCL 4MG/2ML VIAL IV STA (12:56)
[2017-07-12] MEDS ORDERED: MORPHINE SULFATE 4 MG/ML CPJ (NOT FOR IM USE) IV STA (12:56)
[2017-07-12] MEDS ORDERED: ASPIRIN 325MG TABLET PO ONE (13:00)
[2017-07-12 13:31] LABS: BASOPHILS % 0.4 % (0.0-2.0); EOSINOPHILS % 0.3 % (0.0-5.0); HEMATOCRIT. 47.9 % (36.0-48.0); HEMOGLOBIN. 16.2 g/dL (12.0-16.0); LYMPHOCYTES % 9.1 % (20.0-50.0); MEAN CORPUSCULAR HEMOGLOBIN 31.5 pg (28.0-32.0); MEAN CORPUSCULAR VOLUME 93.3 fL (81.0-99.0); MEAN PLATELET VOLUME 7.7 fl (7.4-10.4); MONOCYTES % 6.2 % (2.0-8.0); PLATELET 248 x1000/uL (130-400); RED BLOOD CELL COUNT 5.14 mill/uL (4.2-5.4); RED CELL DISTRIBUTION WIDTH 14.6 % (11.6-14.6)
[2017-07-12 13:38] LABS: INR 1.1; PROTHROMBIN TIME 11.9 sec (9.4-11.6)
[2017-07-12 13:47] LABS: CARBON DIOXIDE 28 mEq/L (21-32); CHLORIDE 105 mEq/L (98-107); TROPONIN I < 0.02 ng/mL (0.00-0.04)
[2017-07-12] MEDS ORDERED: LIDOCAINE HCL 1% 20ML VIAL (Pyxis) INJ ONE (14:41)
[2017-07-12] MEDS ORDERED: LEVOFLOXACIN 750MG PREMIX 150 ML IV ONE (14:45)
[2017-07-12 15:10] LABS: CLARITY URINE CLEAR (CLEAR); COLOR URINE YELLOW (YELLOW); GLUCOSE URINE NEGATIVE (NEGATIVE); KETONES URINE NEGATIVE (NEGATIVE); LEUKOCYTE ESTERASE URINE NEGATIVE (NEGATIVE); NITRITE URINE NEGATIVE (NEGATIVE); OCCULT BLOOD URINE NEGATIVE (NEGATIVE); PROTEIN URINE NEGATIVE (NEGATIVE); SPECIFIC GRAVITY URINE 1.017 (1.005-1.030); UROBILINOGEN URINE 0.2 E.U./dL (0.2-1.0)
[2017-07-12] MEDS ORDERED: CLONIDINE 0.1MG TABLET PO PRN ×2 (16:34→17:30)
[2017-07-12] MEDS ORDERED: DOBUTAMINE 250MG PREMIX 250 ML IV SCH (17:00)
[2017-07-12] MEDS ORDERED: ONDANSETRON HCL 4MG/2ML VIAL IV PRN (17:30)
[2017-07-12] MEDS ORDERED: DOCUSATE SODIUM 100MG CAPSULE PO PRN (17:30)
[2017-07-12] MEDS ORDERED: GUAIFENESIN 200MG/10ML SUGAR FREE UDC PO PRN (17:30)
[2017-07-12] MEDS ORDERED: NITROGLYCERIN 0.4MG TABLET SL SL PRN (17:30)
[2017-07-12] MEDS ORDERED: IPRATROPIUM/ALBUTEROL 0.5-3(2.5)MG/3ML NEB INH PRN (17:30)
[2017-07-12] MEDS ORDERED: MAGNESIUM/ALUMINUM HYDROXIDE/SIMETHICONE 30ML UDC PO PRN (17:30)
[2017-07-12] MEDS ORDERED: ACETAMINOPHEN 325MG TABLET PO PRN (17:30)
[2017-07-12] MEDS ORDERED: NA PHOS,M-B/NA PHOS,DI-BA ENEMA 118ML PR PRN (17:30)
[2017-07-12] MEDS: GUAIFENESIN/DM 600MG/30MG ER TAB 12HR PO SCH (17:30)
[2017-07-12 18:15] LABS: *AMPHETAMINES SCREEN URINE NEGATIVE (NEGATIVE); *BARBITURATES SCREEN URINE NEGATIVE (NEGATIVE); *COCAINE SCREEN URINE NEGATIVE (NEGATIVE); CANNABINOID URINE SCREEN NEGATIVE (NEGATIVE); METHADONE URINE SCREEN NEGATIVE (NEGATIVE); PHENCYCLIDINE URINE SCREEN NEGATIVE (NEGATIVE)
[2017-07-12 18:16] LABS: *BENZODIAZEPINES SCREEN URINE PRESUMTIVE POSITIVE (NEGATIVE); OPIATES URINE SCREEN PRESUMTIVE POSITIVE (NEGATIVE)
[2017-07-12 20:00] VITALS: BP 126/76
[2017-07-12] MEDS: LAMOTRIGINE 100MG TABLET PO SCH (20:26)
[2017-07-12] MEDS: ENOXAPARIN 40MG/0.4ML SYR SUBCUT SCH (20:26)
[2017-07-12] MEDS: FAMOTIDINE 20MG/2ML VIAL IV SCH (20:27)
[2017-07-12] MEDS: AMLODIPINE 2.5MG TABLET PO SCH (20:27)
[2017-07-12] MEDS: TRAZODONE HCL 100MG TABLET PO SCH (20:27)
[2017-07-12] MEDS: MORPHINE SULFATE 4 MG/ML CPJ (NOT FOR IM USE) IV PRN (20:28)
[2017-07-12] MEDS: VENLAFAXINE HCL 75MG TABLET PO SCH (21:00)
[2017-07-12] MEDS: TOPIRAMATE 100MG TABLET PO SCH (21:47)
[2017-07-12] MEDS: ZIPRASIDONE HCL 60MG CAPSULE PO SCH (21:47)
[2017-07-12] MEDS: DIPHENHYDRAMINE 50MG/ML VIAL IV PRN (22:11)
[2017-07-12 23:18] LABS: CREATINE KINASE MB FRACTION 0.6 ng/mL (0.5-3.6)
[2017-07-13] VITALS: BP 128/71
[2017-07-13] MEDS: MORPHINE SULFATE 4 MG/ML CPJ (NOT FOR IM USE) IV PRN ×6 (00:36→19:49)
[2017-07-13 04:20] VITALS: BP 120/63
[2017-07-13] MEDS: GUAIFENESIN/DM 600MG/30MG ER TAB 12HR PO SCH ×2 (05:16→17:30)
[2017-07-13 06:45] LABS: BASOPHILS % 0.3 % (0.0-2.0); HEMATOCRIT. 47.1 % (36.0-48.0); HEMOGLOBIN. 15.6 g/dL (12.0-16.0); LYMPHOCYTES % 32.9 % (20.0-50.0); MEAN CORPUSCULAR HEMOGLOBIN 31.6 pg (28.0-32.0); MEAN CORPUSCULAR VOLUME 95.5 fL (81.0-99.0); MEAN PLATELET VOLUME 7.6 fl (7.4-10.4); MONOCYTES % 10.8 % (2.0-8.0); PLATELET 202 x1000/uL (130-400); RED BLOOD CELL COUNT 4.94 mill/uL (4.2-5.4); RED CELL DISTRIBUTION WIDTH 14.6 % (11.6-14.6)
[2017-07-13 07:12] LABS: CARBON DIOXIDE 29 mEq/L (21-32); CHLORIDE 107 mEq/L (98-107); CREATINE KINASE 21 IU/L (26-192); HDL CHOLESTEROL 54 mg/dL (40-59); LDL CHOLESTEROL 93 mg/dL (5-100)
[2017-07-13 07:21] LABS: CREATINE KINASE MB FRACTION 0.7 ng/mL (0.5-3.6); TROPONIN I < 0.02 ng/mL (0.00-0.04)
[2017-07-13 08:00] VITALS: BP 145/88
[2017-07-13] MEDS: ENOXAPARIN 40MG/0.4ML SYR SUBCUT SCH ×2 (09:00→20:50)
[2017-07-13] MEDS: VENLAFAXINE HCL 75MG TABLET PO SCH (09:00)
[2017-07-13] MEDS: ASPIRIN 325MG EC TABLET PO SCH (09:11)
[2017-07-13] MEDS: TOPIRAMATE 100MG TABLET PO SCH ×2 (09:12→20:48)
[2017-07-13] MEDS: FAMOTIDINE 20MG/2ML VIAL IV SCH ×2 (09:12→20:48)
[2017-07-13] MEDS: AMLODIPINE 2.5MG TABLET PO SCH ×2 (09:12→20:49)
[2017-07-13] MEDS ORDERED: DOBUTAMINE 250MG PREMIX 250 ML IV ONE (10:25)
[2017-07-13 12:00] VITALS: BP 128/58
[2017-07-13 16:00] VITALS: BP 131/84
[2017-07-13] MEDS: LORAZEPAM 2MG/ML CPJ IV PRN (17:30)
[2017-07-13 20:00] VITALS: BP 141/80
[2017-07-13] MEDS: TRAZODONE HCL 100MG TABLET PO SCH (20:49)
[2017-07-13] MEDS: LAMOTRIGINE 100MG TABLET PO SCH (20:49)
[2017-07-13] MEDS: ZIPRASIDONE HCL 60MG CAPSULE PO SCH (20:50)
[2017-07-13] MEDS: DIPHENHYDRAMINE 50MG/ML VIAL IV PRN (20:50)
[2017-07-14] VITALS: BP 140/80
[2017-07-14] MEDS: MORPHINE SULFATE 4 MG/ML CPJ (NOT FOR IM USE) IV PRN (00:07)
[2017-07-14] MEDS: LORAZEPAM 2MG/ML CPJ IV PRN (00:20)
[2017-07-14 04:00] VITALS: BP 117/64
[2017-07-14] MEDS: GUAIFENESIN/DM 600MG/30MG ER TAB 12HR PO SCH (05:14)
[2017-07-14] MEDS: MORPHINE SULFATE 2 MG/ML CPJ (NOT FOR IM USE) IV PRN ×2 (06:10→10:06)
[2017-07-14 08:00] VITALS: BP 125/74
[2017-07-14] MEDS: AMLODIPINE 2.5MG TABLET PO SCH (09:00)
[2017-07-14] MEDS: VENLAFAXINE HCL 75MG TABLET PO SCH (09:59)
[2017-07-14] MEDS: TOPIRAMATE 100MG TABLET PO SCH (09:59)
[2017-07-14] MEDS: ASPIRIN 325MG EC TABLET PO SCH (09:59)
[2017-07-14] MEDS: FAMOTIDINE 20MG/2ML VIAL IV SCH (09:59)
[2017-07-14] MEDS: ENOXAPARIN 40MG/0.4ML SYR SUBCUT SCH (10:00)
[2017-07-14 12:31] VITALS: BP 20/125
== END 2017-07-14 13:00 | disposition home or self-care (01) | DRG 392 ==
LOC: ER 12:01 → 8WST 14:58 → EDBEDREQ 15:02 → EDBEDREQTM 15:02 → ENRESERV 17:27
PROVIDERS: ADMIT Internal Medicine; ATTEND Internal Medicine
PROC: 02HV33Z Insertion of Infusion Device into Superior Vena Cava, Percutaneous Approach (ICD-10-PCS; principal; 2017-07-12)
PROC: B5181ZA Fluoroscopy of Superior Vena Cava using Low Osmolar Contrast, Guidance (ICD-10-PCS; 2017-07-12)
DX: K21.9 Gastro-esophageal reflux disease without esophagitis (principal); M32.9 Systemic lupus erythematosus, unspecified; E66.01 Morbid (severe) obesity due to excess calories; Z68.42 Body mass index [BMI] 45.0-49.9, adult; Z99.81 Dependence on supplemental oxygen; J44.1 Chronic obstructive pulmonary disease with (acute) exacerbation; I11.9 Hypertensive heart disease without heart failure; G47.33 Obstructive sleep apnea (adult) (pediatric); F31.9 Bipolar disorder, unspecified; E78.00 Pure hypercholesterolemia, unspecified; F17.210 Nicotine dependence, cigarettes, uncomplicated; Z79.82 Long term (current) use of aspirin; Z96.641 Presence of right artificial hip joint; J45.909 Unspecified asthma, uncomplicated; Z96.659 Presence of unspecified artificial knee joint; F41.9 Anxiety disorder, unspecified; Z88.8 Allergy status to other drugs, medicaments and biological substances; Z79.899 Other long term (current) drug therapy; Z91.040 Latex allergy status
CPT/HCPCS: 36415; 36569; 36600; 71010; 77001; 78452; 80053; 80061; 80305; 81003; 82375; 82550; 82553; 82805; 83036; 83690; 83735; 83880; 84443; 84484; 84703; 85025; 85379; 85610; 85730; 87040; 87086; 93005; 93017; 93970; 94640; 96365; 96366; 96374; 96375; 99285; A9500; C1725; J1200; J1250; J1650; J1956; J2060; J2270; J2405; J2930; J3490; J7620

== ENCOUNTER 2017-08-03 12:52 | Inpatient (IN) | payer MEDICARE, MEDICAID ==
[~2017-08-03] VITALS: Ht 162.6 cm; Wt 100.0 kg
[2017-08-03] MEDS ORDERED: SODIUM CHLORIDE 0.9% 1,000 ML IV ONE (13:10)
[2017-08-03] MEDS ORDERED: METHYLPREDNISOLONE SOD SUCC 125 MG/2 ML VIAL IV STA (13:44)
[2017-08-03] MEDS ORDERED: IPRATROPIUM BROMIDE (0.02%) 0.5MG/2.5ML NEB HHN STA (13:44)
[2017-08-03] MEDS ORDERED: ALBUTEROL (0.083%) 2.5MG/3ML NEB HHN STA (13:44)
[2017-08-03] MEDS ORDERED: LEVOFLOXACIN 500MG PREMIX 100 ML IV ONE (13:45)
[2017-08-03] MEDS ORDERED: MECLIZINE 25MG TABLET PO ONE ×2 (13:45→16:45)
[2017-08-03] MEDS ORDERED: MORPHINE SULFATE 4 MG/ML CPJ (NOT FOR IM USE) IV ONE (13:45)
[2017-08-03] MEDS ORDERED: ONDANSETRON HCL 4MG/2ML VIAL IV ONE (13:45)
[2017-08-03] MEDS ORDERED: MAGNESIUM 2 G PREMIX 50 ML IV ONE (13:45)
[2017-08-03 15:39] LABS: CHLORIDE 107 mEq/L (98-107)
[2017-08-03 15:40] LABS: BASOPHILS % 0.7 % (0.0-2.0); EOSINOPHILS % 0.2 % (0.0-5.0); HEMATOCRIT. 48.6 % (36.0-48.0); INR 1.3; LYMPHOCYTES % 41.4 % (20.0-50.0); MEAN CORPUSCULAR HEMOGLOBIN 31.9 pg (28.0-32.0); MEAN CORPUSCULAR VOLUME 96.8 fL (81.0-99.0); MEAN PLATELET VOLUME 7.1 fl (7.4-10.4); NEUTROPHILS % 47.7 % (40.0-76.0); PARTIAL THROMBOPLASTIN TIME 23.5 sec (23.4-31.0); PLATELET 272 x1000/uL (130-400); PROTHROMBIN TIME 13.1 sec (9.4-11.6); RED BLOOD CELL COUNT 5.02 mill/uL (4.2-5.4); RED CELL DISTRIBUTION WIDTH 14.8 % (11.6-14.6)
[2017-08-03 15:43] LABS: HCG SCREEN NEGATIVE
[2017-08-03 15:48] LABS: CARBON DIOXIDE 26 mEq/L (21-32); TROPONIN I < 0.02 ng/mL (0.00-0.04)
[2017-08-03 15:49] LABS: CREATINE KINASE MB FRACTION 0.8 ng/mL (0.5-3.6)
[2017-08-03] MEDS ORDERED: MECLIZINE 25MG TABLET PO PRN (18:30)
[2017-08-03] MEDS ORDERED: NON FORMULARY PATIENT HOME MED EA XX SCH ×2 (18:30)
[2017-08-03] MEDS ORDERED: ACETAMINOPHEN 650MG/20.3ML UDC PO PRN (18:30)
[2017-08-03] MEDS ORDERED: IPRATROPIUM/ALBUTEROL 0.5-3(2.5)MG/3ML NEB HHN PRN (18:30)
[2017-08-03] MEDS ORDERED: ONDANSETRON HCL 4MG/2ML VIAL IV PRN (18:30)
[2017-08-03 20:00] VITALS: BP 109/56
[2017-08-03] MEDS: METHYLPREDNISOLONE SOD SUCC 40 MG/ML VIAL IV SCH (20:19)
[2017-08-03] MEDS: ENOXAPARIN 30MG/0.3ML SYR SUBCUT SCH (20:20)
[2017-08-03] MEDS ORDERED: HYDR-519 PO (20:57)
[2017-08-03] MEDS ORDERED: MEDICATION NOT ON FORMULARY EA (Trazodone Hcl 150 MG) PO SCH (21:00)
[2017-08-03] MEDS ORDERED: LAMOTRIGINE 200 MG PO SCH (21:00)
[2017-08-03] MEDS ORDERED: MEDICATION NOT ON FORMULARY EA (Alprazolam (Xanax) 1 MG) PO PRN (21:15)
[2017-08-03] MEDS ORDERED: TRAZ150T78 PO (21:16)
[2017-08-03] MEDS ORDERED: ZIPR60CA6 PO (21:16)
[2017-08-03] MEDS ORDERED: HYDROCODONE/ACETAMINOPHEN 10/325MG TABLET PO PRN (21:34)
[2017-08-03] MEDS ORDERED: ALPRAZOLAM 0.5 MG TABLET PO PRN (21:45)
[2017-08-03] MEDS: IPRATROPIUM/ALBUTEROL 0.5-3(2.5)MG/3ML NEB HHN SCH (22:11)
[2017-08-03] MEDS: BUDESONIDE 0.5MG/2ML NEB HHN SCH (22:11)
[2017-08-03] MEDS: TOPIRAMATE 100MG TABLET PO SCH (22:27)
[2017-08-03] MEDS: DIPHENHYDRAMINE 50MG CAPSULE PO SCH (22:28)
[2017-08-03] MEDS: LAMOTRIGINE 100MG TABLET PO SCH (22:28)
[2017-08-03] MEDS: MORPHINE SULFATE 4 MG/ML CPJ (NOT FOR IM USE) IV PRN (22:29)
[2017-08-03] MEDS: TRAZODONE HCL 100MG TABLET PO SCH (22:29)
[2017-08-03] MEDS: ZIPRASIDONE HCL 60MG CAPSULE PO SCH (23:13)
[2017-08-04] VITALS: BP 109/51
[2017-08-04] MEDS: IPRATROPIUM/ALBUTEROL 0.5-3(2.5)MG/3ML NEB HHN SCH ×6 (00:55→20:05)
[2017-08-04 04:00] VITALS: BP 142/52
[2017-08-04] MEDS: MORPHINE SULFATE 4 MG/ML CPJ (NOT FOR IM USE) IV PRN ×5 (04:12→22:08)
[2017-08-04] MEDS: METHYLPREDNISOLONE SOD SUCC 40 MG/ML VIAL IV SCH ×3 (04:12→18:29)
[2017-08-04 06:15] LABS: CLARITY URINE CLEAR (CLEAR); COLOR URINE YELLOW (YELLOW); GLUCOSE URINE NEGATIVE (NEGATIVE); KETONES URINE NEGATIVE (NEGATIVE); LEUKOCYTE ESTERASE URINE NEGATIVE (NEGATIVE); NITRITE URINE NEGATIVE (NEGATIVE); OCCULT BLOOD URINE NEGATIVE (NEGATIVE); PROTEIN URINE NEGATIVE (NEGATIVE); SPECIFIC GRAVITY URINE 1.013 (1.005-1.030); UROBILINOGEN URINE 0.2 E.U./dL (0.2-1.0)
[2017-08-04 08:00] VITALS: BP 109/63
[2017-08-04] MEDS: VENLAFAXINE HCL 75MG TABLET PO SCH (08:39)
[2017-08-04] MEDS: OMEPRAZOLE 20MG CAPSULE EXTENDED RELEASE PO SCH (08:39)
[2017-08-04] MEDS: ENOXAPARIN 30MG/0.3ML SYR SUBCUT SCH ×2 (08:41→21:17)
[2017-08-04] MEDS: BUDESONIDE 0.5MG/2ML NEB HHN SCH ×2 (09:00→20:05)
[2017-08-04] MEDS ORDERED: TOPIRAMATE 100MG TABLET PO SCH (09:00)
[2017-08-04] MEDS ORDERED: SALMETEROL INH SCH (09:00)
[2017-08-04] MEDS ORDERED: FLUTICASONE INH SCH (09:00)
[2017-08-04] MEDS: INFLUENZA VIRUS VACCINE 0.5ML SYR IM ONE ×2 (10:00→13:17)
[2017-08-04] MEDS: TOPIRAMATE 100MG TABLET PO SCH ×2 (11:34→21:16)
[2017-08-04 12:00] VITALS: BP 105/56
[2017-08-04] MEDS ORDERED: BUDESONIDE 0.5MG/2ML NEB HHN SCH (14:15)
[2017-08-04 16:00] VITALS: BP 120/50
[2017-08-04] MEDS ORDERED: NICOTINE 21MG PATCH TD NR (16:00)
[2017-08-04] MEDS ORDERED: MEDICATION NOT ON FORMULARY EA (Trazodone Hcl 150 MG) PO SCH (17:00)
[2017-08-04] MEDS ORDERED: TRAZODONE HCL 100MG TABLET PO SCH (17:00)
[2017-08-04] MEDS: TRAZODONE HCL 100MG TABLET PO SCH (18:14)
[2017-08-04] MEDS: LEVOFLOXACIN 500MG PREMIX 100 ML IV SCH (18:14)
[2017-08-04 20:00] VITALS: BP 144/77
[2017-08-04] MEDS ORDERED: DIPHENHYDRAMINE 50MG CAPSULE PO SCH (21:00)
[2017-08-04] MEDS ORDERED: ZIPRASIDONE HCL 60MG CAPSULE PO SCH (21:00)
[2017-08-04] MEDS: ATORVASTATIN CALCIUM 40MG TABLET PO SCH (21:16)
[2017-08-04] MEDS: DIPHENHYDRAMINE 50MG CAPSULE PO SCH (21:16)
[2017-08-04] MEDS: ZIPRASIDONE HCL 60MG CAPSULE PO SCH (21:16)
[2017-08-04] MEDS: LAMOTRIGINE 100MG TABLET PO SCH (21:17)
[2017-08-05] VITALS (7 sets, daily range): BP systolic 128–158; BP diastolic 69–87
[2017-08-05] MEDS: IPRATROPIUM/ALBUTEROL 0.5-3(2.5)MG/3ML NEB HHN SCH ×6 (00:09→20:39)
[2017-08-05] MEDS: METHYLPREDNISOLONE SOD SUCC 40 MG/ML VIAL IV SCH ×3 (02:33→18:22)
[2017-08-05] MEDS: MORPHINE SULFATE 4 MG/ML CPJ (NOT FOR IM USE) IV PRN ×5 (02:33→19:48)
[2017-08-05] MEDS: TOPIRAMATE 100MG TABLET PO SCH ×2 (08:37→21:13)
[2017-08-05] MEDS: VENLAFAXINE HCL 75MG TABLET PO SCH (08:37)
[2017-08-05] MEDS: OMEPRAZOLE 20MG CAPSULE EXTENDED RELEASE PO SCH (08:37)
[2017-08-05] MEDS: ENOXAPARIN 30MG/0.3ML SYR SUBCUT SCH ×2 (08:38→21:14)
[2017-08-05] MEDS: NICOTINE 21MG PATCH TD SCH (08:39)
[2017-08-05] MEDS: BUDESONIDE 0.5MG/2ML NEB HHN SCH ×2 (09:13→20:41)
[2017-08-05] MEDS: TRAZODONE HCL 100MG TABLET PO SCH (18:23)
[2017-08-05] MEDS: LEVOFLOXACIN 500MG PREMIX 100 ML IV SCH (18:23)
[2017-08-05] MEDS: ZIPRASIDONE HCL 60MG CAPSULE PO SCH (21:13)
[2017-08-05] MEDS: LAMOTRIGINE 100MG TABLET PO SCH (21:13)
[2017-08-05] MEDS: ATORVASTATIN CALCIUM 40MG TABLET PO SCH (21:13)
[2017-08-05] MEDS: DIPHENHYDRAMINE 50MG CAPSULE PO SCH (21:13)
[2017-08-06] VITALS: BP 129/71
[2017-08-06] MEDS: MORPHINE SULFATE 4 MG/ML CPJ (NOT FOR IM USE) IV PRN ×3 (00:25→08:51)
[2017-08-06] MEDS: IPRATROPIUM/ALBUTEROL 0.5-3(2.5)MG/3ML NEB HHN SCH ×4 (00:41→11:19)
[2017-08-06] MEDS: METHYLPREDNISOLONE SOD SUCC 40 MG/ML VIAL IV SCH (03:38)
[2017-08-06 04:00] VITALS: BP 132/73
[2017-08-06 06:25] LABS: BASOPHILS % 0.1 % (0.0-2.0); HEMATOCRIT. 42.3 % (36.0-48.0); HEMOGLOBIN. 14.2 g/dL (12.0-16.0); LYMPHOCYTES % 8.6 % (20.0-50.0); MEAN CORPUSCULAR HEMOGLOBIN 31.9 pg (28.0-32.0); MEAN CORPUSCULAR VOLUME 95.1 fL (81.0-99.0); MEAN PLATELET VOLUME 7.5 fl (7.4-10.4); NEUTROPHILS % 86.3 % (40.0-76.0); PLATELET 256 x1000/uL (130-400); RED BLOOD CELL COUNT 4.45 mill/uL (4.2-5.4); RED CELL DISTRIBUTION WIDTH 14.6 % (11.6-14.6)
[2017-08-06 07:15] LABS: CARBON DIOXIDE 24 mEq/L (21-32); CHLORIDE 108 mEq/L (98-107)
[2017-08-06] MEDS: BUDESONIDE 0.5MG/2ML NEB HHN SCH (07:29)
[2017-08-06 08:00] VITALS: BP 157/102
[2017-08-06] MEDS: VENLAFAXINE HCL 75MG TABLET PO SCH (08:42)
[2017-08-06] MEDS: TOPIRAMATE 100MG TABLET PO SCH (08:42)
[2017-08-06] MEDS: ENOXAPARIN 30MG/0.3ML SYR SUBCUT SCH (08:51)
[2017-08-06] MEDS: NICOTINE 21MG PATCH TD SCH (09:00)
[2017-08-06] MEDS ORDERED: FAMOTIDINE 20MG TABLET PO SCH (09:00)
[2017-08-06] MEDS ORDERED: AMOX-405 PO (09:20)
[2017-08-06] MEDS ORDERED: METH4TAB17 PO (09:20)
[2017-08-06] MEDS ORDERED: IPRA3AMP9 HHN (09:20)
[2017-08-06 10:40] VITALS: BP 135/86
[2017-08-06] MEDS ORDERED: PREDNISONE 20MG TABLET PO SCH (18:10)
== END 2017-08-06 12:01 | disposition home or self-care (01) | DRG 871 ==
LOC: ER 12:52 → ENRESERV 15:21 → 7WST 15:47 → EDBEDREQ 15:49 → EDBEDREQTM 15:49 → 7WST 19:19
PROVIDERS: ADMIT Internal Medicine; ATTEND Internal Medicine
PROC: 5A09457 Assistance with Respiratory Ventilation, 24-96 Consecutive Hours, Continuous Positive Airway Pressure (ICD-10-PCS; principal; 2017-08-03)
DX: A41.9 Sepsis, unspecified organism (principal); J96.00 Acute respiratory failure, unspecified whether with hypoxia or hypercapnia; I11.0 Hypertensive heart disease with heart failure; I50.9 Heart failure, unspecified; Z99.81 Dependence on supplemental oxygen; J18.9 Pneumonia, unspecified organism; J44.1 Chronic obstructive pulmonary disease with (acute) exacerbation; G60.0 Hereditary motor and sensory neuropathy; E66.01 Morbid (severe) obesity due to excess calories; G47.33 Obstructive sleep apnea (adult) (pediatric); F31.9 Bipolar disorder, unspecified; M14.679 Charcot's joint, unspecified ankle and foot; H66.90 Otitis media, unspecified, unspecified ear; E78.5 Hyperlipidemia, unspecified; L93.0 Discoid lupus erythematosus; F17.210 Nicotine dependence, cigarettes, uncomplicated; Z96.641 Presence of right artificial hip joint; Z96.653 Presence of artificial knee joint, bilateral; Z88.8 Allergy status to other drugs, medicaments and biological substances; Z91.040 Latex allergy status; Z99.3 Dependence on wheelchair; Z79.899 Other long term (current) drug therapy; Z68.37 Body mass index [BMI] 37.0-37.9, adult
CPT/HCPCS: 36415; 70450; 71010; 80048; 80053; 80061; 81003; 82553; 83735; 83880; 84484; 84703; 85025; 85610; 85730; 87070; 87804; 90686; 93005; 94640; 94644; 94660; 94664; 96374; 96375; 99291; J1650; J1956; J2270; J2405; J2920; J2930; J3475; J7030; J7050; J7611; J7620; J7626; J8597; Q0163

== ENCOUNTER 2017-08-19 13:32 | Emergency (ER) | payer MEDICARE, MEDICAID ==
[~2017-08-19] VITALS: Ht 165.1 cm; Wt 85.0 kg
[~2017-08-19 13:32] MED LIST changes: +AMOX-405 PO; +HYDR-519 PO; +IPRA3AMP9 HHN; +METH4TAB17 PO; -TRAZ-132 PO; +TRAZ150T78 PO; +ZIPR60CA6 PO; -ZIPR80CA9 PO
[2017-08-19] MEDS ORDERED: HYDROCODONE/ACETAMINOPHEN 10/325MG TABLET PO ONE (21:00)
[2017-08-19 21:37] VITALS: BP 140/65
== END 2017-08-19 21:55 | disposition home or self-care (01) ==
LOC: ER 13:45
DX: L03.115 Cellulitis of right lower limb (principal); Z88.6 Allergy status to analgesic agent; Z91.040 Latex allergy status
CPT/HCPCS: 99283

== ENCOUNTER 2017-09-27 15:41 | Emergency (ER) | payer MEDICARE, MEDICAID ==
[~2017-09-27] VITALS: Ht 157.5 cm; Wt 120.0 kg
[2017-09-27] MEDS ORDERED: SODIUM CHLORIDE 0.9% 1,000 ML IV ONE (21:32)
[2017-09-27 22:07] LABS: BASOPHILS % 0.4 % (0.0-2.0); HEMOGLOBIN. 15.7 g/dL (12.0-16.0); LYMPHOCYTES % 23.9 % (20.0-50.0); MEAN CORPUSCULAR HEMOGLOBIN 31.3 pg (28.0-32.0); MEAN CORPUSCULAR VOLUME 97.5 fL (81.0-99.0); MEAN PLATELET VOLUME 7.7 fl (7.4-10.4); MONOCYTES % 9.4 % (2.0-8.0); NEUTROPHILS % 65.3 % (40.0-76.0); PLATELET 257 x1000/uL (130-400); RED BLOOD CELL COUNT 5.02 mill/uL (4.2-5.4); RED CELL DISTRIBUTION WIDTH 15.4 % (11.6-14.6)
[2017-09-27 23:56] LABS: INR 1.2; PARTIAL THROMBOPLASTIN TIME 26.1 sec (23.4-31.0)
[2017-09-28 00:03] LABS: CARBON DIOXIDE 23 mEq/L (21-32); CHLORIDE 108 mEq/L (98-107); TROPONIN I < 0.02 ng/mL (0.00-0.04)
[2017-09-28] MEDS ORDERED: LEVOFLOXACIN 250MG TABLET PO ONE (01:15)
[2017-09-28] MEDS ORDERED: HYDROCODONE/ACETAMINOPHEN 5/325MG TABLET PO ONE (01:15)
[2017-09-28] MEDS ORDERED: ONDANSETRON 4MG ODT PO ONE (01:15)
[2017-09-28 02:06] VITALS: BP 143/58
== END 2017-09-28 02:30 | disposition left against medical advice (07) ==
LOC: ER 16:46 → CANRESERV 09-28 02:11 → ENRESERV 09-28 02:11 → ER 09-28 02:30 → CANBEDREQ 09-28 02:40
DX: B34.9 Viral infection, unspecified (principal); J18.9 Pneumonia, unspecified organism; E86.0 Dehydration; J44.0 Chronic obstructive pulmonary disease with (acute) lower respiratory infection; F31.9 Bipolar disorder, unspecified; F17.200 Nicotine dependence, unspecified, uncomplicated; I10 Essential (primary) hypertension; Z96.649 Presence of unspecified artificial hip joint; Z98.890 Other specified postprocedural states; Z96.659 Presence of unspecified artificial knee joint
CPT/HCPCS: 36415; 36556; 71010; 80053; 83690; 84484; 85025; 85610; 85730; 93005; 99285; Q0162; J7030

== ENCOUNTER 2017-12-25 15:53 | Emergency (ER) | payer MEDICARE, MEDICAID ==
[~2017-12-25] VITALS: Ht 157.5 cm; Wt 122.0 kg
[~2017-12-25 15:53] MED LIST changes: -VALS80TA25 PO; +VALS80TA29 PO
[2017-12-25] MEDS ORDERED: ACETAMINOPHEN 500MG TABLET PO ONE (17:45)
[2017-12-25 20:27] VITALS: BP 125/70
== END 2017-12-25 20:30 | disposition home or self-care (01) ==
LOC: ER 16:04
DX: M25.511 Pain in right shoulder (principal); I10 Essential (primary) hypertension; J44.9 Chronic obstructive pulmonary disease, unspecified
CPT/HCPCS: 73030; 99284

== ENCOUNTER 2018-11-14 02:32 | Inpatient (IN) | payer MEDICARE, MEDICAID ==
[2018-11-14] VITALS (8 sets, daily range): BP systolic 134–156; BP diastolic 80–93
[~2018-11-14] VITALS: Ht 165.1 cm; Wt 126.2 kg
[~2018-11-14 02:32] MED LIST changes: +ALBU18HF2 IH; +ALBU2.5V13 IH; -AMOX-405 PO; -METH4TAB17 PO; -SOLI10TA PO; -VALS80TA29 PO; +VALS80TA30 PO
[2018-11-14] MEDS ORDERED: MORPHINE SULFATE 4 MG/ML CPJ (NOT FOR IM USE) IV STA (02:59)
[2018-11-14] MEDS ORDERED: ONDANSETRON HCL 4MG/2ML INJ IV STA (02:59)
[2018-11-14] MEDS ORDERED: METHYLPREDNISOLONE SOD SUCC 125 MG/2 ML VIAL IV STA (02:59)
[2018-11-14] MEDS ORDERED: IPRATROPIUM BROMIDE (0.02%) 0.5MG/2.5ML NEB HHN STA (02:59)
[2018-11-14] MEDS ORDERED: MAGNESIUM 2 G PREMIX 50 ML IV ONE (03:00)
[2018-11-14] MEDS ORDERED: ALBUTEROL (0.083%) 2.5MG/3ML NEB HHN SCH (03:00)
[2018-11-14 03:18] LABS: BASOPHILS % 0.5 % (0.0-2.0); HEMATOCRIT. 42.4 % (36.0-48.0); HEMOGLOBIN. 13.8 g/dL (12.0-16.0); LYMPHOCYTES % 36.9 % (20.0-50.0); MEAN CORPUSCULAR HEMOGLOBIN 30.7 pg (28.0-32.0); MEAN CORPUSCULAR VOLUME 93.9 fL (81.0-99.0); MONOCYTES % 10.6 % (2.0-8.0); PLATELET 291 x1000/uL (130-400); RED BLOOD CELL COUNT 4.51 mill/uL (4.2-5.4); RED CELL DISTRIBUTION WIDTH 16.5 % (11.6-14.6)
[2018-11-14 03:25] LABS: CHLORIDE 110 mEq/L (98-107)
[2018-11-14 04:18] LABS: BG BASE EXCESS -1.3 mmol/L (-2.0-2.0); BG BILEVEL POS AIRWAY PRESSURE 15/5; BG CARBOXYHEMOGLOBIN 4.6 % (0.5-1.5); BG DEOXYHEMOGLOBIN 3.3 % (0.0-5.0); BG FRACTION INSPIRED OXYGEN 40; BG HCO3 ACT 25.3 mmol/L (22.0-26.0); BG METHEMOGLOBIN 0.2 % (0.0-1.5); BG OXYGEN SATURATION 96.5 % (92.0-98.5); BG OXYHEMOGLOBIN 91.9 % (94.0-97.0); BG PCO2 49.7 mmHg (35.0-45.0); BG PH 7.325 (7.350-7.450); BG PO2 90.8 mmHg (75.0-100.0); BG SAMPLE SITE RIGHT BRACHIAL; BG TOTAL HEMOGLOBIN 14.3 g/dL (12.0-18.0); BG VENT MODE MASK - BIPAP; BG VENT RATE 16 set
[2018-11-14] MEDS ORDERED: MORPHINE SULFATE 4 MG/ML CPJ (NOT FOR IM USE) IV ONE (05:30)
[2018-11-14] MEDS ORDERED: MAGNESIUM/ALUMINUM HYDROXIDE/SIMETHICONE 30ML UDC PO PRN (11:00)
[2018-11-14] MEDS ORDERED: ONDANSETRON HCL 4MG/2ML INJ IV PRN (11:00)
[2018-11-14] MEDS ORDERED: GUAIFENESIN 200MG/10ML SUGAR FREE UDC PO PRN (11:00)
[2018-11-14] MEDS ORDERED: IPRATROPIUM/ALBUTEROL 0.5-3(2.5)MG/3ML NEB HHN SCH (11:00)
[2018-11-14] MEDS ORDERED: IPRATROPIUM/ALBUTEROL 0.5-3(2.5)MG/3ML NEB INH PRN (11:00)
[2018-11-14] MEDS ORDERED: ACETAMINOPHEN 325MG TABLET PO PRN (11:00)
[2018-11-14] MEDS ORDERED: KETOROLAC 30MG/ML VIAL IV PRN (11:00)
[2018-11-14] MEDS: HYDROCODONE/ACETAMINOPHEN 10/325MG TABLET PO PRN ×2 (12:32→17:16)
[2018-11-14] MEDS: CLONIDINE 0.1MG TABLET PO PRN (12:37)
[2018-11-14] MEDS ORDERED: MORPHINE SULFATE 4 MG/ML CPJ (NOT FOR IM USE) IV NR (13:15)
[2018-11-14] MEDS ORDERED: METHYLPREDNISOLONE SOD SUCC 125 MG/2 ML VIAL IV SCH (14:00)
[2018-11-14] MEDS: IPRATROPIUM/ALBUTEROL 0.5-3(2.5)MG/3ML NEB HHN SCH ×2 (15:12→20:23)
[2018-11-14] MEDS: SODIUM CHLORIDE 0.9% INJ 3ML FLUSH IVF SCH ×2 (15:30→22:00)
[2018-11-14] MEDS: METHYLPREDNISOLONE SOD SUCC 40 MG/ML VIAL IV SCH (16:14)
[2018-11-14] MEDS: FAMOTIDINE 20MG TABLET PO SCH ×2 (16:14→21:00)
[2018-11-14] MEDS: ENOXAPARIN 30MG/0.3ML SYR SUBCUT SCH (17:16)
[2018-11-14] MEDS: LAMOTRIGINE 100MG TABLET PO SCH (20:23)
[2018-11-14] MEDS: TRAZODONE HCL 100MG TABLET PO SCH (20:23)
[2018-11-14] MEDS: GUAIFENESIN 600MG ER TABLET PO SCH (20:44)
[2018-11-15] VITALS (13 sets, daily range): BP systolic 124–156; BP diastolic 53–113
[2018-11-15] MEDS: METHYLPREDNISOLONE SOD SUCC 40 MG/ML VIAL IV SCH ×4 (00:01→23:54)
[2018-11-15] MEDS: HYDROCODONE/ACETAMINOPHEN 10/325MG TABLET PO PRN ×3 (00:02→20:03)
[2018-11-15] MEDS: IPRATROPIUM/ALBUTEROL 0.5-3(2.5)MG/3ML NEB HHN SCH ×6 (00:12→20:54)
[2018-11-15] MEDS: SODIUM CHLORIDE 0.9% INJ 3ML FLUSH IVF SCH ×3 (06:04→22:34)
[2018-11-15] MEDS: ENOXAPARIN 30MG/0.3ML SYR SUBCUT SCH ×2 (06:07→17:19)
[2018-11-15] MEDS: FAMOTIDINE 20MG TABLET PO SCH ×2 (08:10→20:00)
[2018-11-15] MEDS: GUAIFENESIN 600MG ER TABLET PO SCH ×2 (08:11→20:00)
[2018-11-15] MEDS: VENLAFAXINE HCL 75MG TABLET PO SCH (08:11)
[2018-11-15] MEDS: TOPIRAMATE 100MG TABLET PO SCH (08:11)
[2018-11-15 11:10] LABS: CLARITY URINE CLEAR (CLEAR); COLOR URINE YELLOW (YELLOW); KETONES URINE NEGATIVE (NEGATIVE); LEUKOCYTE ESTERASE URINE NEGATIVE (NEGATIVE); NITRITE URINE NEGATIVE (NEGATIVE); OCCULT BLOOD URINE NEGATIVE (NEGATIVE); PROTEIN URINE NEGATIVE (NEGATIVE); SPECIFIC GRAVITY URINE 1.012 (1.005-1.030); UROBILINOGEN URINE 0.2 E.U./dL (0.2-1.0)
[2018-11-15 11:39] LABS: *AMPHETAMINES SCREEN URINE NEGATIVE (NEGATIVE); *BARBITURATES SCREEN URINE NEGATIVE (NEGATIVE)
[2018-11-15 11:40] LABS: *BENZODIAZEPINES SCREEN URINE NEGATIVE (NEGATIVE); *COCAINE SCREEN URINE NEGATIVE (NEGATIVE); CANNABINOID URINE SCREEN PRESUMTIVE POSITIVE (NEGATIVE); METHADONE URINE SCREEN NEGATIVE (NEGATIVE); OPIATES URINE SCREEN PRESUMTIVE POSITIVE (NEGATIVE); PHENCYCLIDINE URINE SCREEN NEGATIVE (NEGATIVE)
[2018-11-15] MEDS: ALPRAZOLAM 0.5 MG TABLET PO PRN (18:25)
[2018-11-15] MEDS: LAMOTRIGINE 100MG TABLET PO SCH (20:01)
[2018-11-15] MEDS: TRAZODONE HCL 100MG TABLET PO SCH (20:01)
[2018-11-16] VITALS (13 sets, daily range): BP systolic 130–164; BP diastolic 78–98
[2018-11-16] MEDS: IPRATROPIUM/ALBUTEROL 0.5-3(2.5)MG/3ML NEB HHN SCH ×5 (00:39→15:59)
[2018-11-16] MEDS: ALPRAZOLAM 0.5 MG TABLET PO PRN ×2 (05:24→15:04)
[2018-11-16] MEDS: ENOXAPARIN 30MG/0.3ML SYR SUBCUT SCH ×2 (05:56→17:21)
[2018-11-16] MEDS: SODIUM CHLORIDE 0.9% INJ 3ML FLUSH IVF SCH ×2 (05:56→14:00)
[2018-11-16] MEDS: METHYLPREDNISOLONE SOD SUCC 40 MG/ML VIAL IV SCH (08:19)
[2018-11-16] MEDS: TOPIRAMATE 100MG TABLET PO SCH (08:19)
[2018-11-16] MEDS: GUAIFENESIN 600MG ER TABLET PO SCH ×2 (08:19→20:10)
[2018-11-16] MEDS: VENLAFAXINE HCL 75MG TABLET PO SCH (08:19)
[2018-11-16] MEDS: FAMOTIDINE 20MG TABLET PO SCH ×2 (08:19→20:10)
[2018-11-16] MEDS ORDERED: BUDESONIDE 0.5MG/2ML NEB HHN SCH (12:00)
[2018-11-16] MEDS ORDERED: PREDNISONE 20MG TABLET PO SCH (17:20)
[2018-11-16] MEDS: CLONIDINE 0.1MG TABLET PO PRN (18:26)
[2018-11-16] MEDS: TRAZODONE HCL 100MG TABLET PO SCH (20:10)
[2018-11-16] MEDS: LAMOTRIGINE 100MG TABLET PO SCH (20:11)
[2018-12-28 08:00] VITALS: BP 112/68
== END 2018-11-16 20:48 | disposition home or self-care (01) | DRG 189 ==
LOC: ER 02:32 → EDBEDREQ 03:52 → 3WST 04:56 → EDBEDREQ 05:03 → EDBEDREQTM 05:03 → EDBEDREQSVC 05:03 → ENRESERV 14:13
PROVIDERS: ADMIT Internal Medicine; ATTEND Internal Medicine
PROC: 5A09457 Assistance with Respiratory Ventilation, 24-96 Consecutive Hours, Continuous Positive Airway Pressure (ICD-10-PCS; principal; 2018-11-14)
DX: J96.00 Acute respiratory failure, unspecified whether with hypoxia or hypercapnia (principal); J44.1 Chronic obstructive pulmonary disease with (acute) exacerbation; I10 Essential (primary) hypertension; F31.9 Bipolar disorder, unspecified; G60.0 Hereditary motor and sensory neuropathy; G47.33 Obstructive sleep apnea (adult) (pediatric); D72.829 Elevated white blood cell count, unspecified; G89.4 Chronic pain syndrome; E78.00 Pure hypercholesterolemia, unspecified; Z96.641 Presence of right artificial hip joint; Z96.653 Presence of artificial knee joint, bilateral; Z98.891 History of uterine scar from previous surgery; Z99.3 Dependence on wheelchair; Z99.81 Dependence on supplemental oxygen; Z88.8 Allergy status to other drugs, medicaments and biological substances; Z91.040 Latex allergy status; Z82.49 Family history of ischemic heart disease and other diseases of the circulatory system; Z82.5 Family history of asthma and other chronic lower respiratory diseases; Z87.891 Personal history of nicotine dependence
CPT/HCPCS: 36415; 36600; 71045; 80305; 82375; 82805; 83605; 83880; 84484; 85379; 87804; 93005; 94640; 94660; 96365; 96375; 99291; A6261; J1650; J1885; J2270; J2405; J2920; J2930; J3475; J7512; J7611; J7620; J7626; A4315

== ENCOUNTER 2019-02-09 19:04 | Inpatient (IN) | payer MEDICARE, MEDICAID ==
[~2019-02-09] VITALS: Ht 157.5 cm; Wt 121.6 kg
[2019-02-09] MEDS ORDERED: ALBUTEROL (0.083%) 2.5MG/3ML NEB HHN STA (19:35)
[2019-02-09] MEDS ORDERED: IPRATROPIUM BROMIDE (0.02%) 0.5MG/2.5ML NEB HHN STA ×2 (19:35)
[2019-02-09] MEDS ORDERED: ONDANSETRON HCL 4MG/2ML INJ IV STA (19:35)
[2019-02-09] MEDS ORDERED: PREDNISONE 20MG TABLET PO STA (19:35)
[2019-02-09] MEDS ORDERED: ASPIRIN 81MG TABLET PO ONE (19:45)
[2019-02-09] MEDS ORDERED: DEXAMETHASONE 4MG/ML 1ML VIAL IV ONE (19:45)
[2019-02-09] MEDS ORDERED: AZITHROMYCIN 500 MG in DEXT 5% WATER 250 ML IV ONE (19:45)
[2019-02-09] MEDS ORDERED: CEFTRIAXONE 1 G PREMIX 50 ML IV ONE (19:45)
[2019-02-09] MEDS ORDERED: ALBUTEROL (0.083%) 2.5MG/3ML NEB HHN SCH (20:00)
[2019-02-09 20:09] LABS: BASOPHILS % 0.6 % (0.0-2.0); EOSINOPHILS % 1.5 % (0.0-5.0); HEMATOCRIT. 40.7 % (36.0-48.0); HEMOGLOBIN. 13.2 g/dL (12.0-16.0); LYMPHOCYTES % 29.9 % (20.0-50.0); MEAN CORPUSCULAR HEMOGLOBIN 30.6 pg (28.0-32.0); MEAN CORPUSCULAR VOLUME 94.4 fL (81.0-99.0); MEAN PLATELET VOLUME 7.5 fl (7.4-10.4); MONOCYTES % 11.1 % (2.0-8.0); NEUTROPHILS % 56.9 % (40.0-76.0); PLATELET 310 x1000/uL (130-400); RED BLOOD CELL COUNT 4.31 mill/uL (4.2-5.4); RED CELL DISTRIBUTION WIDTH 14.3 % (11.6-14.6)
[2019-02-09 20:12] LABS: CHLORIDE 105 mEq/L (98-107); HCG SCREEN NEGATIVE
[2019-02-09 20:14] LABS: INR 1.2; PARTIAL THROMBOPLASTIN TIME 27.6 sec (23.4-31.0); PROTHROMBIN TIME 11.9 sec (9.6-11.0)
[2019-02-09 20:20] LABS: CREATINE KINASE 61 IU/L (26-192)
[2019-02-09 20:22] LABS: BG BASE EXCESS 2.3 mmol/L (-2.0-2.0); BG CARBOXYHEMOGLOBIN 2.9 % (0.5-1.5); BG DEOXYHEMOGLOBIN 3.7 % (0.0-5.0); BG FRACTION INSPIRED OXYGEN 100; BG HCO3 ACT 29.1 mmol/L (22.0-26.0); BG METHEMOGLOBIN 0.2 % (0.0-1.5); BG OXYGEN SATURATION 96.2 % (92.0-98.5); BG OXYHEMOGLOBIN 93.2 % (94.0-97.0); BG PCO2 54.1 mmHg (35.0-45.0); BG PH 7.349 (7.350-7.450); BG PO2 89.4 mmHg (75.0-100.0); BG SAMPLE SITE RIGHT RADIAL; BG TOTAL HEMOGLOBIN 14.9 g/dL (12.0-18.0); BG VENT MODE MASK - NRB
[2019-02-09 20:23] LABS: CREATINE KINASE MB FRACTION < 1.0 ng/mL (0.5-3.6)
[2019-02-09] MEDS ORDERED: MORPHINE SULFATE 2 MG/ML CPJ (NOT FOR IM USE) IV ONE (20:45)
[2019-02-09] MEDS ORDERED: MAGNESIUM/ALUMINUM HYDROXIDE/SIMETHICONE 30ML UDC PO PRN (21:30)
[2019-02-09] MEDS ORDERED: ONDANSETRON HCL 4MG/2ML INJ IV PRN (21:30)
[2019-02-09] MEDS ORDERED: DOCUSATE SODIUM 100MG CAPSULE PO PRN (21:30)
[2019-02-09] MEDS ORDERED: NITROGLYCERIN 0.4MG TABLET SL SL PRN (21:30)
[2019-02-09] MEDS ORDERED: ACETAMINOPHEN 325MG TABLET PO PRN (21:30)
[2019-02-09] MEDS ORDERED: GUAIFENESIN 200MG/10ML SUGAR FREE UDC PO PRN (21:30)
[2019-02-09] MEDS ORDERED: IPRATROPIUM/ALBUTEROL 0.5-3(2.5)MG/3ML NEB INH PRN (21:30)
[2019-02-09] MEDS ORDERED: DIPHENHYDRAMINE 50MG/ML VIAL IV PRN (21:30)
[2019-02-10] VITALS (14 sets, daily range): BP systolic 112–183; BP diastolic 60–120
[2019-02-10] MEDS ORDERED: HALOPERIDOL LACTATE 5MG/ML VIAL IM PRN (01:32)
[2019-02-10] MEDS: MORPHINE SULFATE 4 MG/ML CPJ (NOT FOR IM USE) IV PRN ×5 (01:59→20:22)
[2019-02-10] MEDS ORDERED: LEVOFLOXACIN 500MG PREMIX 100 ML IV SCH (03:00)
[2019-02-10] MEDS: IPRATROPIUM/ALBUTEROL 0.5-3(2.5)MG/3ML NEB HHN SCH ×5 (03:25→20:45)
[2019-02-10] MEDS: METHYLPREDNISOLONE SOD SUCC 125 MG/2 ML VIAL IV SCH ×3 (05:53→21:13)
[2019-02-10] MEDS: DILTIAZEM HCL 30MG TABLET PO SCH ×3 (05:53→17:48)
[2019-02-10 08:36] LABS: CLARITY URINE CLEAR (CLEAR); COLOR URINE YELLOW (YELLOW); KETONES URINE NEGATIVE (NEGATIVE); LEUKOCYTE ESTERASE URINE NEGATIVE (NEGATIVE); NITRITE URINE NEGATIVE (NEGATIVE); OCCULT BLOOD URINE NEGATIVE (NEGATIVE); PROTEIN URINE NEGATIVE (NEGATIVE); SPECIFIC GRAVITY URINE 1.011 (1.005-1.030); UROBILINOGEN URINE 0.2 E.U./dL (0.2-1.0)
[2019-02-10] MEDS: FAMOTIDINE 20MG TABLET PO SCH ×2 (09:00→20:29)
[2019-02-10] MEDS: VENLAFAXINE HCL 75MG TABLET PO SCH (09:00)
[2019-02-10] MEDS: GUAIFENESIN/DM 600MG/30MG ER TAB 12HR PO SCH ×2 (09:00→20:29)
[2019-02-10] MEDS: ENOXAPARIN 30MG/0.3ML SYR SUBCUT SCH ×2 (09:00→20:29)
[2019-02-10] MEDS: ASPIRIN 325MG EC TABLET PO SCH (09:00)
[2019-02-10] MEDS ORDERED: ENOXAPARIN 40MG/0.4ML SYR SUBCUT SCH (09:00)
[2019-02-10 09:25] LABS: *BARBITURATES SCREEN URINE NEGATIVE (NEGATIVE); *BENZODIAZEPINES SCREEN URINE PRESUMTIVE POSITIVE (NEGATIVE)
[2019-02-10 09:26] LABS: *AMPHETAMINES SCREEN URINE NEGATIVE (NEGATIVE); *COCAINE SCREEN URINE NEGATIVE (NEGATIVE); CANNABINOID URINE SCREEN PRESUMTIVE POSITIVE (NEGATIVE); METHADONE URINE SCREEN NEGATIVE (NEGATIVE); OPIATES URINE SCREEN PRESUMTIVE POSITIVE (NEGATIVE); PHENCYCLIDINE URINE SCREEN NEGATIVE (NEGATIVE)
[2019-02-10] MEDS ORDERED: FUROSEMIDE 40MG/4ML VIAL IVP NR (10:45)
[2019-02-10] MEDS: ZOLPIDEM TARTRATE 5MG TABLET PO PRN (21:13)
[2019-02-10] MEDS: TRAZODONE HCL 100MG TABLET PO SCH (21:13)
[2019-02-11] VITALS (14 sets, daily range): BP systolic 129–159; BP diastolic 64–108
[2019-02-11] MEDS: IPRATROPIUM/ALBUTEROL 0.5-3(2.5)MG/3ML NEB HHN SCH ×6 (00:34→20:11)
[2019-02-11] MEDS: DILTIAZEM HCL 30MG TABLET PO SCH ×5 (00:35→23:31)
[2019-02-11] MEDS: MORPHINE SULFATE 4 MG/ML CPJ (NOT FOR IM USE) IV PRN ×5 (05:22→23:30)
[2019-02-11] MEDS: METHYLPREDNISOLONE SOD SUCC 125 MG/2 ML VIAL IV SCH (07:00)
[2019-02-11] MEDS ORDERED: FUROSEMIDE 40MG/4ML VIAL IVP SCH (09:00)
[2019-02-11] MEDS: ENOXAPARIN 30MG/0.3ML SYR SUBCUT SCH ×2 (09:33→21:02)
[2019-02-11] MEDS: GUAIFENESIN/DM 600MG/30MG ER TAB 12HR PO SCH ×2 (09:33→21:02)
[2019-02-11] MEDS: FAMOTIDINE 20MG TABLET PO SCH ×2 (09:34→21:02)
[2019-02-11] MEDS: VENLAFAXINE HCL 75MG TABLET PO SCH (09:34)
[2019-02-11] MEDS: ASPIRIN 325MG EC TABLET PO SCH (09:34)
[2019-02-11] MEDS: LEVOFLOXACIN 500MG PREMIX 100 ML IV SCH (09:42)
[2019-02-11] MEDS: CLONIDINE 0.1MG TABLET PO PRN (09:52)
[2019-02-11] MEDS ORDERED: FUROSEMIDE 20MG/2ML VIAL IVP NR (13:15)
[2019-02-11] MEDS: LORAZEPAM 0.5MG TABLET PO PRN (13:54)
[2019-02-11] MEDS: METHYLPREDNISOLONE SOD SUCC 40 MG/ML VIAL IV SCH ×2 (14:21→21:02)
[2019-02-11] MEDS: FUROSEMIDE 40MG/4ML VIAL IVP SCH (18:40)
[2019-02-11] MEDS: TRAZODONE HCL 100MG TABLET PO SCH (21:02)
[2019-02-11] MEDS: ZOLPIDEM TARTRATE 5MG TABLET PO PRN (21:11)
[2019-02-11] MEDS ORDERED: TRAZODONE HCL 100MG TABLET PO SCH (23:00)
[2019-02-11] MEDS: TOPIRAMATE 100MG TABLET PO SCH (23:30)
[2019-02-11] MEDS: LAMOTRIGINE 100MG TABLET PO SCH (23:30)
[2019-02-12] VITALS (12 sets, daily range): BP systolic 107–171; BP diastolic 55–108
[2019-02-12] MEDS: IPRATROPIUM/ALBUTEROL 0.5-3(2.5)MG/3ML NEB HHN SCH ×5 (00:16→20:31)
[2019-02-12] MEDS: ZIPRASIDONE HCL 40MG CAPSULE PO SCH ×2 (00:18→20:07)
[2019-02-12] MEDS: MORPHINE SULFATE 4 MG/ML CPJ (NOT FOR IM USE) IV PRN ×5 (04:34→22:55)
[2019-02-12] MEDS: METHYLPREDNISOLONE SOD SUCC 40 MG/ML VIAL IV SCH ×3 (05:26→20:22)
[2019-02-12] MEDS: DILTIAZEM HCL 30MG TABLET PO SCH ×4 (05:27→22:59)
[2019-02-12] MEDS: FUROSEMIDE 40MG/4ML VIAL IVP SCH ×2 (06:35→17:23)
[2019-02-12 07:04] LABS: BASOPHILS % 0.1 % (0.0-2.0); HEMOGLOBIN. 12.8 g/dL (12.0-16.0); LYMPHOCYTES % 7.4 % (20.0-50.0); MEAN CORPUSCULAR VOLUME 94.4 fL (81.0-99.0); MEAN PLATELET VOLUME 7.6 fl (7.4-10.4); MONOCYTES % 5.5 % (2.0-8.0); PLATELET 288 x1000/uL (130-400); RED BLOOD CELL COUNT 4.13 mill/uL (4.2-5.4); RED CELL DISTRIBUTION WIDTH 14.4 % (11.6-14.6)
[2019-02-12 07:16] LABS: CHLORIDE 104 mEq/L (98-107)
[2019-02-12] MEDS: VENLAFAXINE HCL 75MG TABLET PO SCH (08:21)
[2019-02-12] MEDS: FAMOTIDINE 20MG TABLET PO SCH ×2 (08:21→20:07)
[2019-02-12] MEDS: GUAIFENESIN/DM 600MG/30MG ER TAB 12HR PO SCH ×2 (08:21→20:07)
[2019-02-12] MEDS: ASPIRIN 325MG EC TABLET PO SCH (08:21)
[2019-02-12] MEDS: ENOXAPARIN 30MG/0.3ML SYR SUBCUT SCH ×2 (08:22→20:06)
[2019-02-12] MEDS: LEVOFLOXACIN 500MG PREMIX 100 ML IV SCH (09:49)
[2019-02-12] MEDS ORDERED: POTASSIUM CHLORIDE 20MEQ TABLET SR PO NR (16:45)
[2019-02-12] MEDS: LORAZEPAM 0.5MG TABLET PO PRN (17:22)
[2019-02-12] MEDS: TOPIRAMATE 100MG TABLET PO SCH (20:07)
[2019-02-12] MEDS: TRAZODONE HCL 100MG TABLET PO SCH (20:07)
[2019-02-12] MEDS: LAMOTRIGINE 100MG TABLET PO SCH (20:07)
[2019-02-12] MEDS: ZOLPIDEM TARTRATE 5MG TABLET PO PRN (20:22)
[2019-02-13] VITALS (12 sets, daily range): BP systolic 124–167; BP diastolic 69–107
[2019-02-13] MEDS: IPRATROPIUM/ALBUTEROL 0.5-3(2.5)MG/3ML NEB HHN SCH ×6 (00:45→20:59)
[2019-02-13] MEDS: LORAZEPAM 0.5MG TABLET PO PRN ×2 (03:42→15:32)
[2019-02-13] MEDS: MORPHINE SULFATE 4 MG/ML CPJ (NOT FOR IM USE) IV PRN ×5 (03:59→21:46)
[2019-02-13] MEDS: METHYLPREDNISOLONE SOD SUCC 40 MG/ML VIAL IV SCH ×3 (05:25→20:40)
[2019-02-13] MEDS: DILTIAZEM HCL 30MG TABLET PO SCH ×3 (05:25→18:28)
[2019-02-13] MEDS ORDERED: LIDOCAINE HCL 1% 20ML VIAL (Pyxis) INJ ONE (07:42)
[2019-02-13] MEDS: VENLAFAXINE HCL 75MG TABLET PO SCH (09:29)
[2019-02-13] MEDS: ASPIRIN 325MG EC TABLET PO SCH (09:29)
[2019-02-13] MEDS: FUROSEMIDE 40MG/4ML VIAL IVP SCH ×2 (09:29→18:29)
[2019-02-13] MEDS: FAMOTIDINE 20MG TABLET PO SCH (09:29)
[2019-02-13] MEDS: GUAIFENESIN/DM 600MG/30MG ER TAB 12HR PO SCH ×2 (09:29→20:39)
[2019-02-13] MEDS: ENOXAPARIN 30MG/0.3ML SYR SUBCUT SCH ×2 (09:29→20:41)
[2019-02-13] MEDS: LEVOFLOXACIN 500MG PREMIX 100 ML IV SCH (10:25)
[2019-02-13] MEDS: CEFEPIME 1,000 MG in DEXTROSE 5% WATER 50 ML IV SCH (18:25)
[2019-02-13] MEDS: OMEPRAZOLE 20MG CAPSULE EXTENDED RELEASE PO SCH ×2 (18:29→20:39)
[2019-02-13] MEDS: CLONIDINE 0.1MG TABLET PO PRN (18:45)
[2019-02-13] MEDS: ZIPRASIDONE HCL 40MG CAPSULE PO SCH (20:39)
[2019-02-13] MEDS: METRONIDAZOLE 500 MG PREMIX 100 ML IV SCH (20:39)
[2019-02-13] MEDS: LAMOTRIGINE 100MG TABLET PO SCH (20:39)
[2019-02-13] MEDS: TRAZODONE HCL 100MG TABLET PO SCH (20:40)
[2019-02-13] MEDS: TOPIRAMATE 100MG TABLET PO SCH (20:40)
[2019-02-13] MEDS: ZOLPIDEM TARTRATE 5MG TABLET PO PRN (21:45)
[2019-02-14] VITALS (7 sets, daily range): BP systolic 98–128; BP diastolic 56–88
[2019-02-14] MEDS: IPRATROPIUM/ALBUTEROL 0.5-3(2.5)MG/3ML NEB HHN SCH ×5 (00:50→16:00)
[2019-02-14] MEDS: MORPHINE SULFATE 4 MG/ML CPJ (NOT FOR IM USE) IV PRN ×3 (01:58→10:50)
[2019-02-14] MEDS: METRONIDAZOLE 500 MG PREMIX 100 ML IV SCH ×2 (03:02→12:00)
[2019-02-14] MEDS: METHYLPREDNISOLONE SOD SUCC 40 MG/ML VIAL IV SCH ×2 (05:11→13:30)
[2019-02-14] MEDS: CEFEPIME 1,000 MG in DEXTROSE 5% WATER 50 ML IV SCH (05:11)
[2019-02-14] MEDS: DILTIAZEM HCL 30MG TABLET PO SCH ×3 (05:12→12:00)
[2019-02-14] MEDS: FUROSEMIDE 40MG/4ML VIAL IVP SCH (06:31)
[2019-02-14] MEDS: OMEPRAZOLE 20MG CAPSULE EXTENDED RELEASE PO SCH (09:04)
[2019-02-14] MEDS: VENLAFAXINE HCL 75MG TABLET PO SCH (09:04)
[2019-02-14] MEDS: ENOXAPARIN 30MG/0.3ML SYR SUBCUT SCH (09:04)
[2019-02-14] MEDS: ASPIRIN 325MG EC TABLET PO SCH (09:04)
[2019-02-14] MEDS: GUAIFENESIN/DM 600MG/30MG ER TAB 12HR PO SCH (09:04)
[2019-02-14] MEDS: LORAZEPAM 0.5MG TABLET PO PRN (09:04)
[2019-02-14] MEDS ORDERED: FAMOTIDINE 20MG TABLET PO SCH (21:00)
== END 2019-02-14 14:50 | disposition home or self-care (01) | DRG 189 ==
LOC: ER 19:04 → 5EST 21:11 → EDBEDREQ 21:29 → EDBEDREQTM 21:29 → CANRESERV 21:53 → ENRESERV 21:53 → EDBEDREQTM 23:48 → EDBEDREQ 23:48 → EDBEDREQSVC 23:48 → CANRESERV 23:49 → ENRESERV 23:49
PROVIDERS: ADMIT Internal Medicine; ATTEND Internal Medicine
PROC: 5A09357 Assistance with Respiratory Ventilation, Less than 24 Consecutive Hours, Continuous Positive Airway Pressure (ICD-10-PCS; 2019-02-09)
PROC: 5A09357 Assistance with Respiratory Ventilation, Less than 24 Consecutive Hours, Continuous Positive Airway Pressure (ICD-10-PCS; 2019-02-10)
PROC: 5A09457 Assistance with Respiratory Ventilation, 24-96 Consecutive Hours, Continuous Positive Airway Pressure (ICD-10-PCS; principal; 2019-02-11)
PROC: 5A09357 Assistance with Respiratory Ventilation, Less than 24 Consecutive Hours, Continuous Positive Airway Pressure (ICD-10-PCS; 2019-02-13)
PROC: 05HY33Z Insertion of Infusion Device into Upper Vein, Percutaneous Approach (ICD-10-PCS; 2019-02-13)
PROC: B54MZZA Ultrasonography of Right Upper Extremity Veins, Guidance (ICD-10-PCS; 2019-02-13)
PROC: 5A09357 Assistance with Respiratory Ventilation, Less than 24 Consecutive Hours, Continuous Positive Airway Pressure (ICD-10-PCS; 2019-02-14)
DX: J96.00 Acute respiratory failure, unspecified whether with hypoxia or hypercapnia (principal); J44.1 Chronic obstructive pulmonary disease with (acute) exacerbation; Z68.42 Body mass index [BMI] 45.0-49.9, adult; K21.9 Gastro-esophageal reflux disease without esophagitis; E66.01 Morbid (severe) obesity due to excess calories; G47.33 Obstructive sleep apnea (adult) (pediatric); I25.10 Atherosclerotic heart disease of native coronary artery without angina pectoris; D72.829 Elevated white blood cell count, unspecified; F12.10 Cannabis abuse, uncomplicated; F17.210 Nicotine dependence, cigarettes, uncomplicated; F31.9 Bipolar disorder, unspecified; G60.0 Hereditary motor and sensory neuropathy; L93.0 Discoid lupus erythematosus; R26.9 Unspecified abnormalities of gait and mobility; I50.9 Heart failure, unspecified; L97.529 Non-pressure chronic ulcer of other part of left foot with unspecified severity; Z96.641 Presence of right artificial hip joint; I11.0 Hypertensive heart disease with heart failure; Z96.653 Presence of artificial knee joint, bilateral; Z98.891 History of uterine scar from previous surgery; Z82.5 Family history of asthma and other chronic lower respiratory diseases; Z99.81 Dependence on supplemental oxygen; I25.2 Old myocardial infarction; Z99.3 Dependence on wheelchair; Z71.6 Tobacco abuse counseling; Z88.8 Allergy status to other drugs, medicaments and biological substances; Z91.040 Latex allergy status
CPT/HCPCS: 36415; 36569; 36600; 71045; 73630; 76937; 80048; 80061; 80305; 82375; 82550; 82553; 82805; 83036; 83605; 83880; 84484; 84703; 87804; 93005; 93970; 94640; 94660; 96374; 96375; 99285; C1725; C1893; J0456; J0692; J0696; J1100; J1650; J1940; J1956; J2270; J2405; J2920; J2930; J3490; J7040; J7050; J7060; J7611; J7620; A4315

== ENCOUNTER 2019-03-15 19:15 | Inpatient (IN) | payer MEDICARE, MEDICAID ==
[~2019-03-15] VITALS: Ht 157.5 cm; Wt 127.6 kg
[~2019-03-15 19:15] MED LIST changes: +ALPR1TAB2 MT; +B50 GT; +FURO-152 MT; +HYDR-4009 MT; +LAM2 PO; +POTA10CA42 MT; -SIMV80TA70 PO; +SIMV80TA90 MT; +SIMV80TA90 PO; +TOP100 MT; +VALS80TA2 MT; +VENL75CA55 MT; +ZIPR80CA2 PO
[2019-03-15] MEDS ORDERED: HYDROCODONE/ACETAMINOPHEN 5/325MG TABLET PO PRN (21:45)
[2019-03-15] MEDS ORDERED: ACETAMINOPHEN 325MG TABLET PO PRN (21:45)
[2019-03-15] MEDS ORDERED: ONDANSETRON HCL 4MG TABLET PO PRN (22:00)
[2019-03-15] MEDS: GABAPENTIN 300MG CAPSULE PO SCH ×2 (22:00→22:43)
[2019-03-15] MEDS: ENOXAPARIN 40MG/0.4ML SYR SUBCUT SCH (22:46)
[2019-03-15] MEDS: HYDROCODONE/ACETAMINOPHEN 10/325MG TABLET PO PRN (22:47)
[2019-03-15] MEDS: ZIPRASIDONE HCL 80MG CAPSULE PO SCH (23:50)
[2019-03-15] MEDS: TRAZODONE HCL 100MG TABLET PO SCH (23:50)
[2019-03-16] MEDS: MORPHINE SULFATE 2 MG/ML CPJ (NOT FOR IM USE) IV PRN ×4 (00:10→22:11)
[2019-03-16 00:25] VITALS: BP 135/67
[2019-03-16] MEDS ORDERED: CEFEPIME 500 MG in DEXTROSE 5% WATER 50 ML IV SCH (02:00)
[2019-03-16] MEDS: CEFEPIME 1,000 MG in DEXTROSE 5% WATER 50 ML IV SCH ×2 (02:55→13:34)
[2019-03-16] MEDS: GABAPENTIN 300MG CAPSULE PO SCH ×3 (05:50→22:00)
[2019-03-16 07:05] LABS: BASOPHILS % 0.4 % (0.0-2.0); EOSINOPHILS % 0.7 % (0.0-5.0); HEMATOCRIT. 34.7 % (36.0-48.0); HEMOGLOBIN. 11.4 g/dL (12.0-16.0); LYMPHOCYTES % 31.7 % (20.0-50.0); MEAN CORPUSCULAR HEMOGLOBIN 31.5 pg (28.0-32.0); MEAN PLATELET VOLUME 6.9 fl (7.4-10.4); MONOCYTES % 14.4 % (2.0-8.0); NEUTROPHILS % 52.8 % (40.0-76.0); PLATELET 184 x1000/uL (130-400); RED BLOOD CELL COUNT 3.62 mill/uL (4.2-5.4); RED CELL DISTRIBUTION WIDTH 15.7 % (11.6-14.6)
[2019-03-16 07:15] LABS: CHLORIDE 107 mEq/L (98-107)
[2019-03-16] MEDS: BUDESONIDE 0.5MG/2ML NEB HHN SCH ×3 (07:42→19:58)
[2019-03-16 08:00] VITALS: BP_SYST 141; BP_SYST 144; BP_DIAS 88
[2019-03-16] MEDS: LAMOTRIGINE 100MG TABLET PO SCH (08:32)
[2019-03-16] MEDS: ENOXAPARIN 40MG/0.4ML SYR SUBCUT SCH ×2 (08:33→22:34)
[2019-03-16] MEDS: HYDROCODONE/ACETAMINOPHEN 10/325MG TABLET PO PRN (08:33)
[2019-03-16] MEDS: NYSTATIN 100,000 UNITS/GM CREAM 15GM TOP SCH ×2 (08:34→17:00)
[2019-03-16] MEDS: NYSTATIN POWDER 15GM TOP SCH ×3 (10:33→22:40)
[2019-03-16] MEDS ORDERED: AZITHROMYCIN 500 MG TABLET PO SCH (11:00)
[2019-03-16 16:36] LABS: CLARITY URINE CLEAR (CLEAR); COLOR URINE YELLOW (YELLOW); KETONES URINE NEGATIVE (NEGATIVE); LEUKOCYTE ESTERASE URINE NEGATIVE (NEGATIVE); NITRITE URINE NEGATIVE (NEGATIVE); OCCULT BLOOD URINE TRACE (NEGATIVE); PH URINE 6.5 (4.5-8.0); PROTEIN URINE NEGATIVE (NEGATIVE); SPECIFIC GRAVITY URINE 1.024 (1.005-1.030); UROBILINOGEN URINE 0.2 E.U./dL (0.2-1.0)
[2019-03-16] MEDS: ALPRAZOLAM 0.5 MG TABLET PO PRN (19:30)
[2019-03-16] MEDS: IPRATROPIUM/ALBUTEROL 0.5-3(2.5)MG/3ML NEB HHN PRN (19:54)
[2019-03-16 20:00] VITALS: BP 147/61
[2019-03-16] MEDS: ZIPRASIDONE HCL 80MG CAPSULE PO SCH (22:34)
[2019-03-16] MEDS: TRAZODONE HCL 100MG TABLET PO SCH (22:35)
[2019-03-17] MEDS: GABAPENTIN 300MG CAPSULE PO SCH ×3 (06:00→20:59)
[2019-03-17] MEDS: NYSTATIN POWDER 15GM TOP SCH ×3 (06:12→21:00)
[2019-03-17] MEDS: MORPHINE SULFATE 2 MG/ML CPJ (NOT FOR IM USE) IV PRN (07:02)
[2019-03-17] MEDS: BUDESONIDE 0.5MG/2ML NEB HHN SCH ×2 (07:45→21:34)
[2019-03-17] MEDS: IPRATROPIUM/ALBUTEROL 0.5-3(2.5)MG/3ML NEB HHN PRN (07:45)
[2019-03-17 08:18] VITALS: BP 137/67
[2019-03-17] MEDS: NYSTATIN 100,000 UNITS/GM CREAM 15GM TOP SCH ×2 (09:00→16:18)
[2019-03-17] MEDS: LAMOTRIGINE 100MG TABLET PO SCH (09:22)
[2019-03-17] MEDS: ENOXAPARIN 40MG/0.4ML SYR SUBCUT SCH ×2 (09:22→20:59)
[2019-03-17] MEDS: HYDROCODONE/ACETAMINOPHEN 10/325MG TABLET PO PRN ×2 (12:53→21:04)
[2019-03-17 20:00] VITALS: BP 125/68
[2019-03-17] MEDS: ZIPRASIDONE HCL 80MG CAPSULE PO SCH (20:58)
[2019-03-17] MEDS: TRAZODONE HCL 100MG TABLET PO SCH (20:58)
[2019-03-17] MEDS: ALPRAZOLAM 0.5 MG TABLET PO PRN (23:22)
[2019-03-18] MEDS: NYSTATIN POWDER 15GM TOP SCH ×3 (05:44→17:45)
[2019-03-18] MEDS: GABAPENTIN 300MG CAPSULE PO SCH ×3 (06:00→21:08)
[2019-03-18 06:59] LABS: CHLORIDE 106 mEq/L (98-107)
[2019-03-18 07:04] LABS: BASOPHILS % 0.3 % (0.0-2.0); EOSINOPHILS % 1.4 % (0.0-5.0); HEMATOCRIT. 33.6 % (36.0-48.0); HEMOGLOBIN. 11.1 g/dL (12.0-16.0); LYMPHOCYTES % 36.4 % (20.0-50.0); MEAN CORPUSCULAR HEMOGLOBIN 31.9 pg (28.0-32.0); MEAN CORPUSCULAR VOLUME 96.3 fL (81.0-99.0); MEAN PLATELET VOLUME 7.2 fl (7.4-10.4); MONOCYTES % 13.2 % (2.0-8.0); NEUTROPHILS % 48.7 % (40.0-76.0); PLATELET 179 x1000/uL (130-400); RED BLOOD CELL COUNT 3.49 mill/uL (4.2-5.4); RED CELL DISTRIBUTION WIDTH 15.3 % (11.6-14.6)
[2019-03-18 07:10] LABS: LDL CHOLESTEROL 121 mg/dL (5-100); PHOSPHORUS 4.5 mg/dL (2.5-4.9)
[2019-03-18 07:11] LABS: HDL CHOLESTEROL 51 mg/dL (40-59)
[2019-03-18 07:15] LABS: TOTAL IRON BINDING CAPACITY 271 ug/dL (250-450)
[2019-03-18 08:00] VITALS: BP 146/64
[2019-03-18] MEDS: ENOXAPARIN 40MG/0.4ML SYR SUBCUT SCH ×2 (08:51→21:08)
[2019-03-18] MEDS: NYSTATIN 100,000 UNITS/GM CREAM 15GM TOP SCH ×2 (08:54→17:00)
[2019-03-18] MEDS: BUDESONIDE 0.5MG/2ML NEB HHN SCH ×2 (09:13→20:08)
[2019-03-18] MEDS: IPRATROPIUM/ALBUTEROL 0.5-3(2.5)MG/3ML NEB HHN PRN (09:14)
[2019-03-18 10:09] LABS: FOLIC ACID (FOLATE) SERUM 19.8 ng/mL (>5.38)
[2019-03-18] MEDS: ASCORBIC ACID 500 MG TABLET PO SCH (13:21)
[2019-03-18] MEDS: FERROUS SULFATE 325MG TABLET PO SCH ×2 (13:21→17:43)
[2019-03-18] MEDS: MORPHINE SULFATE 10 MG/ML CPJ IM PRN ×2 (13:23→21:08)
[2019-03-18] MEDS: DOCUSATE SODIUM 100MG CAPSULE PO SCH (17:00)
[2019-03-18] MEDS: HYDROCODONE/ACETAMINOPHEN 10/325MG TABLET PO PRN (17:44)
[2019-03-18 20:00] VITALS: BP 150/63
[2019-03-18] MEDS: POLYETHYLENE GLYCOL 3350 (17GM) 1 DOSE PACK PO SCH (21:00)
[2019-03-18] MEDS: ZIPRASIDONE HCL 80MG CAPSULE PO SCH (21:07)
[2019-03-18] MEDS: LAMOTRIGINE 100MG TABLET PO SCH (21:07)
[2019-03-18] MEDS: ATORVASTATIN CALCIUM 10MG TABLET PO SCH (21:07)
[2019-03-18] MEDS: TRAZODONE HCL 100MG TABLET PO SCH (22:06)
[2019-03-18] MEDS: ALPRAZOLAM 0.5 MG TABLET PO PRN (23:09)
[2019-03-19] MEDS: NYSTATIN POWDER 15GM TOP SCH ×3 (05:14→22:08)
[2019-03-19] MEDS: GABAPENTIN 300MG CAPSULE PO SCH ×3 (05:14→22:01)
[2019-03-19 07:50] VITALS: BP 151/76
[2019-03-19 08:00] VITALS: BP 151/76
[2019-03-19] MEDS: ENOXAPARIN 40MG/0.4ML SYR SUBCUT SCH ×2 (08:24→22:02)
[2019-03-19] MEDS: HYDROCODONE/ACETAMINOPHEN 10/325MG TABLET PO PRN (08:24)
[2019-03-19] MEDS: VENLAFAXINE HCL 37.5MG SR CAPSULE 24HR PO SCH (08:25)
[2019-03-19] MEDS: FERROUS SULFATE 325MG TABLET PO SCH ×3 (08:25→17:31)
[2019-03-19] MEDS: ASCORBIC ACID 500 MG TABLET PO SCH (08:25)
[2019-03-19] MEDS: NYSTATIN 100,000 UNITS/GM CREAM 15GM TOP SCH ×2 (08:25→16:16)
[2019-03-19] MEDS: DOCUSATE SODIUM 100MG CAPSULE PO SCH ×2 (08:25→17:31)
[2019-03-19] MEDS: IPRATROPIUM/ALBUTEROL 0.5-3(2.5)MG/3ML NEB HHN PRN ×2 (09:30→15:05)
[2019-03-19] MEDS ORDERED: VENLAFAXINE HCL 37.5MG SR CAPSULE 24HR PO SCH (16:00)
[2019-03-19] MEDS: HYDROMORPHONE HCL/PF 2MG/ML CPJ SUBCUT PRN (17:32)
[2019-03-19 20:00] VITALS: BP 175/84
[2019-03-19] MEDS: ALPRAZOLAM 0.5 MG TABLET PO PRN (20:15)
[2019-03-19] MEDS: POLYETHYLENE GLYCOL 3350 (17GM) 1 DOSE PACK PO SCH (21:00)
[2019-03-19] MEDS ORDERED: MORPHINE SULFATE 10 MG/ML CPJ IM PRN (21:00)
[2019-03-19] MEDS: ATORVASTATIN CALCIUM 10MG TABLET PO SCH (21:54)
[2019-03-19] MEDS: ZIPRASIDONE HCL 80MG CAPSULE PO SCH (22:01)
[2019-03-19] MEDS: LAMOTRIGINE 100MG TABLET PO SCH (22:01)
[2019-03-19] MEDS: TRAZODONE HCL 100MG TABLET PO SCH (22:01)
[2019-03-20] MEDS: HYDROCODONE/ACETAMINOPHEN 10/325MG TABLET PO PRN ×2 (02:34→20:37)
[2019-03-20] MEDS: GABAPENTIN 300MG CAPSULE PO SCH (06:23)
[2019-03-20] MEDS: NYSTATIN POWDER 15GM TOP SCH ×2 (06:24→13:20)
[2019-03-20 08:00] VITALS: BP 132/60
[2019-03-20] MEDS: VENLAFAXINE HCL 37.5MG SR CAPSULE 24HR PO SCH (08:35)
[2019-03-20] MEDS: FERROUS SULFATE 325MG TABLET PO SCH ×3 (08:35→16:12)
[2019-03-20] MEDS: ASCORBIC ACID 500 MG TABLET PO SCH (08:35)
[2019-03-20] MEDS: ENOXAPARIN 40MG/0.4ML SYR SUBCUT SCH ×2 (08:35→21:28)
[2019-03-20] MEDS: DOCUSATE SODIUM 100MG CAPSULE PO SCH ×2 (08:35→16:12)
[2019-03-20] MEDS: NYSTATIN 100,000 UNITS/GM CREAM 15GM TOP SCH ×2 (08:36→16:12)
[2019-03-20] MEDS: HYDROMORPHONE HCL/PF 2MG/ML CPJ SUBCUT PRN ×2 (08:37→15:53)
[2019-03-20] MEDS ORDERED: HYDROCODONE/ACETAMINOPHEN 5/325MG TABLET PO PRN (09:45)
[2019-03-20] MEDS: ALPRAZOLAM 0.5 MG TABLET PO PRN (10:28)
[2019-03-20] MEDS ORDERED: NITROGLYCERIN 0.4MG TABLET SL SL PRN (10:45)
[2019-03-20] MEDS: ASPIRIN 81MG TABLET PO SCH (13:20)
[2019-03-20] MEDS: DILTIAZEM HCL 60MG TABLET PO SCH ×2 (13:20→21:14)
[2019-03-20 20:00] VITALS: BP 142/75
[2019-03-20] MEDS ORDERED: METOPROLOL TARTRATE 50MG TABLET PO SCH (21:00)
[2019-03-20] MEDS: POLYETHYLENE GLYCOL 3350 (17GM) 1 DOSE PACK PO SCH (21:00)
[2019-03-20] MEDS: ZIPRASIDONE HCL 80MG CAPSULE PO SCH (21:13)
[2019-03-20] MEDS: LAMOTRIGINE 100MG TABLET PO SCH (21:14)
[2019-03-20] MEDS: TRAZODONE HCL 100MG TABLET PO SCH (21:15)
[2019-03-20] MEDS: ATORVASTATIN CALCIUM 10MG TABLET PO SCH (21:28)
[2019-03-21] MEDS: NYSTATIN POWDER 15GM TOP SCH ×4 (02:15→21:57)
[2019-03-21] MEDS: DILTIAZEM HCL 60MG TABLET PO SCH ×3 (06:03→21:13)
[2019-03-21 06:15] LABS: CHLORIDE 105 mEq/L (98-107)
[2019-03-21 06:35] LABS: BASOPHILS % 0.4 % (0.0-2.0); EOSINOPHILS % 1.7 % (0.0-5.0); HEMATOCRIT. 33.7 % (36.0-48.0); HEMOGLOBIN. 11.3 g/dL (12.0-16.0); LYMPHOCYTES % 33.2 % (20.0-50.0); MEAN CORPUSCULAR HEMOGLOBIN 32.2 pg (28.0-32.0); MEAN CORPUSCULAR VOLUME 95.8 fL (81.0-99.0); MEAN PLATELET VOLUME 7.7 fl (7.4-10.4); MONOCYTES % 14.2 % (2.0-8.0); NEUTROPHILS % 50.5 % (40.0-76.0); PLATELET 166 x1000/uL (130-400); RED BLOOD CELL COUNT 3.51 mill/uL (4.2-5.4); RED CELL DISTRIBUTION WIDTH 15.3 % (11.6-14.6)
[2019-03-21] MEDS: HYDROMORPHONE HCL/PF 2MG/ML CPJ SUBCUT PRN ×2 (07:49→15:57)
[2019-03-21] MEDS: ASCORBIC ACID 500 MG TABLET PO SCH (07:54)
[2019-03-21] MEDS: ENOXAPARIN 40MG/0.4ML SYR SUBCUT SCH ×2 (07:54→21:57)
[2019-03-21] MEDS: VENLAFAXINE HCL 37.5MG SR CAPSULE 24HR PO SCH (07:55)
[2019-03-21] MEDS: DOCUSATE SODIUM 100MG CAPSULE PO SCH ×2 (07:55→16:01)
[2019-03-21] MEDS: FERROUS SULFATE 325MG TABLET PO SCH ×3 (07:55→16:01)
[2019-03-21] MEDS: ASPIRIN 81MG TABLET PO SCH (07:55)
[2019-03-21 08:19] VITALS: BP 136/72
[2019-03-21] MEDS: NYSTATIN 100,000 UNITS/GM CREAM 15GM TOP SCH ×2 (08:52→16:02)
[2019-03-21] MEDS: HYDROCODONE/ACETAMINOPHEN 10/325MG TABLET PO PRN (13:19)
[2019-03-21] MEDS: DIPHENHYDRAMINE 50MG CAPSULE PO PRN (16:15)
[2019-03-21 17:14] LABS: 25-HYDROXY VITAMIN D3 25 ng/mL (.)
[2019-03-21 20:00] VITALS: BP 180/70
[2019-03-21 20:30] VITALS: BP 163/79
[2019-03-21] MEDS: ALPRAZOLAM 0.5 MG TABLET PO PRN (21:13)
[2019-03-21] MEDS: ZIPRASIDONE HCL 80MG CAPSULE PO SCH (21:55)
[2019-03-21] MEDS: TRAZODONE HCL 100MG TABLET PO SCH (21:56)
[2019-03-21] MEDS: LAMOTRIGINE 100MG TABLET PO SCH (21:56)
[2019-03-21] MEDS: POLYETHYLENE GLYCOL 3350 (17GM) 1 DOSE PACK PO SCH (21:57)
[2019-03-21] MEDS: ATORVASTATIN CALCIUM 10MG TABLET PO SCH (21:57)
[2019-03-21 22:00] VITALS: BP 145/65
[2019-03-22] MEDS: HYDROMORPHONE HCL/PF 2MG/ML CPJ SUBCUT PRN ×3 (00:05→16:30)
[2019-03-22] MEDS: DIPHENHYDRAMINE 50MG CAPSULE PO PRN ×2 (00:32→17:54)
[2019-03-22] MEDS: DILTIAZEM HCL 60MG TABLET PO SCH ×2 (05:40→12:42)
[2019-03-22] MEDS: HYDROCODONE/ACETAMINOPHEN 10/325MG TABLET PO PRN (05:40)
[2019-03-22] MEDS: NYSTATIN POWDER 15GM TOP SCH ×3 (05:41→21:15)
[2019-03-22 08:01] VITALS: BP 152/64
[2019-03-22] MEDS: VENLAFAXINE HCL 37.5MG SR CAPSULE 24HR PO SCH (08:09)
[2019-03-22] MEDS: ASPIRIN 81MG TABLET PO SCH (08:09)
[2019-03-22] MEDS: DOCUSATE SODIUM 100MG CAPSULE PO SCH ×2 (08:09→16:30)
[2019-03-22] MEDS: FERROUS SULFATE 325MG TABLET PO SCH ×3 (08:09→16:30)
[2019-03-22] MEDS: ASCORBIC ACID 500 MG TABLET PO SCH (08:09)
[2019-03-22] MEDS: ENOXAPARIN 40MG/0.4ML SYR SUBCUT SCH ×2 (08:10→21:14)
[2019-03-22] MEDS: NYSTATIN 100,000 UNITS/GM CREAM 15GM TOP SCH ×2 (08:14→16:30)
[2019-03-22] MEDS: IPRATROPIUM/ALBUTEROL 0.5-3(2.5)MG/3ML NEB HHN PRN ×2 (12:12→21:08)
[2019-03-22] MEDS: PANTOPRAZOLE 40MG DR TABLET PO SCH (12:43)
[2019-03-22] MEDS ORDERED: ERGOCALCIFEROL 50000UNITS CAPSULE PO SCH (13:00)
[2019-03-22] MEDS: ALPRAZOLAM 0.5 MG TABLET PO PRN ×2 (13:50→22:00)
[2019-03-22 20:00] VITALS: BP 109/88
[2019-03-22] MEDS: ZIPRASIDONE HCL 80MG CAPSULE PO SCH (21:13)
[2019-03-22] MEDS: LAMOTRIGINE 100MG TABLET PO SCH (21:13)
[2019-03-22] MEDS: TRAZODONE HCL 100MG TABLET PO SCH (21:14)
[2019-03-22] MEDS: DILTIAZEM HCL 90MG TABLET PO SCH (21:14)
[2019-03-22] MEDS: POLYETHYLENE GLYCOL 3350 (17GM) 1 DOSE PACK PO SCH (21:14)
[2019-03-22] MEDS: ATORVASTATIN CALCIUM 10MG TABLET PO SCH (21:14)
[2019-03-23] MEDS: HYDROMORPHONE HCL/PF 2MG/ML CPJ SUBCUT PRN ×3 (00:31→16:59)
[2019-03-23] MEDS: DIPHENHYDRAMINE 50MG CAPSULE PO PRN ×2 (01:54→18:20)
[2019-03-23] MEDS: DILTIAZEM HCL 90MG TABLET PO SCH ×3 (06:14→21:02)
[2019-03-23] MEDS: PANTOPRAZOLE 40MG DR TABLET PO SCH (06:14)
[2019-03-23] MEDS: ALPRAZOLAM 0.5 MG TABLET PO PRN ×2 (06:14→20:43)
[2019-03-23] MEDS: NYSTATIN POWDER 15GM TOP SCH ×3 (06:14→21:02)
[2019-03-23 07:40] VITALS: BP 114/42
[2019-03-23 07:42] VITALS: BP 114/42
[2019-03-23] MEDS: VENLAFAXINE HCL 37.5MG SR CAPSULE 24HR PO SCH (08:23)
[2019-03-23] MEDS: FERROUS SULFATE 325MG TABLET PO SCH ×3 (08:24→16:23)
[2019-03-23] MEDS: ENOXAPARIN 40MG/0.4ML SYR SUBCUT SCH ×2 (08:24→20:31)
[2019-03-23] MEDS: ASCORBIC ACID 500 MG TABLET PO SCH (08:24)
[2019-03-23] MEDS: ASPIRIN 81MG TABLET PO SCH (08:24)
[2019-03-23] MEDS: DOCUSATE SODIUM 100MG CAPSULE PO SCH ×2 (08:24→16:23)
[2019-03-23] MEDS: NYSTATIN 100,000 UNITS/GM CREAM 15GM TOP SCH ×2 (08:45→16:23)
[2019-03-23 20:00] VITALS: BP 146/74
[2019-03-23] MEDS: ATORVASTATIN CALCIUM 10MG TABLET PO SCH (20:30)
[2019-03-23] MEDS: POLYETHYLENE GLYCOL 3350 (17GM) 1 DOSE PACK PO SCH (20:30)
[2019-03-23] MEDS: TRAZODONE HCL 100MG TABLET PO SCH (20:30)
[2019-03-23] MEDS: LAMOTRIGINE 100MG TABLET PO SCH (20:31)
[2019-03-23] MEDS: ZIPRASIDONE HCL 80MG CAPSULE PO SCH (20:31)
[2019-03-23] MEDS: IPRATROPIUM/ALBUTEROL 0.5-3(2.5)MG/3ML NEB HHN PRN (22:01)
[2019-03-24] MEDS: DILTIAZEM HCL 90MG TABLET PO SCH ×3 (06:05→21:57)
[2019-03-24] MEDS: NYSTATIN POWDER 15GM TOP SCH ×3 (06:05→21:57)
[2019-03-24] MEDS: HYDROMORPHONE HCL/PF 2MG/ML CPJ SUBCUT PRN ×3 (06:10→23:06)
[2019-03-24] MEDS: DIPHENHYDRAMINE 50MG CAPSULE PO PRN ×2 (06:42→12:51)
[2019-03-24 07:41] VITALS: BP 130/56
[2019-03-24 07:53] VITALS: BP 130/56
[2019-03-24] MEDS: DOCUSATE SODIUM 100MG CAPSULE PO SCH ×2 (08:21→16:17)
[2019-03-24] MEDS: FAMOTIDINE 20MG TABLET PO SCH ×2 (08:21→21:17)
[2019-03-24] MEDS: VENLAFAXINE HCL 37.5MG SR CAPSULE 24HR PO SCH (08:21)
[2019-03-24] MEDS: ASCORBIC ACID 500 MG TABLET PO SCH (08:21)
[2019-03-24] MEDS: ASPIRIN 81MG TABLET PO SCH (08:21)
[2019-03-24] MEDS: FERROUS SULFATE 325MG TABLET PO SCH ×3 (08:21→16:17)
[2019-03-24] MEDS: ENOXAPARIN 40MG/0.4ML SYR SUBCUT SCH ×2 (08:22→21:16)
[2019-03-24] MEDS: NYSTATIN 100,000 UNITS/GM CREAM 15GM TOP SCH ×3 (08:23→16:18)
[2019-03-24] MEDS: ALPRAZOLAM 0.5 MG TABLET PO PRN ×2 (08:48→20:01)
[2019-03-24] MEDS: ZINC SULFATE 220 MG ( 50 ) CAPSULE PO SCH (09:18)
[2019-03-24 13:23] VITALS: BP 146/84
[2019-03-24 20:00] VITALS: BP 135/72
[2019-03-24] MEDS: POLYETHYLENE GLYCOL 3350 (17GM) 1 DOSE PACK PO SCH (21:00)
[2019-03-24] MEDS: ATORVASTATIN CALCIUM 10MG TABLET PO SCH (21:16)
[2019-03-24] MEDS: LAMOTRIGINE 100MG TABLET PO SCH (21:16)
[2019-03-24] MEDS: ZIPRASIDONE HCL 80MG CAPSULE PO SCH (21:16)
[2019-03-24] MEDS: TRAZODONE HCL 100MG TABLET PO SCH (21:16)
[2019-03-24] MEDS: IPRATROPIUM/ALBUTEROL 0.5-3(2.5)MG/3ML NEB HHN PRN (21:18)
[2019-03-25] MEDS: HYDROCODONE/ACETAMINOPHEN 10/325MG TABLET PO PRN ×3 (01:26→20:05)
[2019-03-25] MEDS: DIPHENHYDRAMINE 50MG CAPSULE PO PRN (02:08)
[2019-03-25] MEDS: ALPRAZOLAM 0.5 MG TABLET PO PRN (05:34)
[2019-03-25] MEDS: DILTIAZEM HCL 90MG TABLET PO SCH ×3 (05:34→21:30)
[2019-03-25] MEDS: NYSTATIN POWDER 15GM TOP SCH (05:34)
[2019-03-25] MEDS: HYDROMORPHONE HCL/PF 2MG/ML CPJ SUBCUT PRN (07:13)
[2019-03-25 07:45] VITALS: BP 106/57
[2019-03-25] MEDS: ASPIRIN 81MG TABLET PO SCH (08:46)
[2019-03-25] MEDS: ZINC SULFATE 220 MG ( 50 ) CAPSULE PO SCH (08:46)
[2019-03-25] MEDS: FAMOTIDINE 20MG TABLET PO SCH ×2 (08:47→20:05)
[2019-03-25] MEDS: VENLAFAXINE HCL 37.5MG SR CAPSULE 24HR PO SCH (08:47)
[2019-03-25] MEDS: ENOXAPARIN 40MG/0.4ML SYR SUBCUT SCH ×2 (08:47→20:06)
[2019-03-25] MEDS: FERROUS SULFATE 325MG TABLET PO SCH ×3 (08:47→16:59)
[2019-03-25] MEDS: DOCUSATE SODIUM 100MG CAPSULE PO SCH ×2 (08:47→16:59)
[2019-03-25] MEDS: ASCORBIC ACID 500 MG TABLET PO SCH (08:48)
[2019-03-25] MEDS: NYSTATIN 100,000 UNITS/GM CREAM 15GM TOP SCH ×3 (08:48→17:01)
[2019-03-25] MEDS ORDERED: HYDROMORPHONE HCL/PF 2MG/ML CPJ SUBCUT PRN ×2 (13:00→13:15)
[2019-03-25 16:04] LABS: BG BASE EXCESS 4.8 mmol/L (-2.0-2.0); BG CARBOXYHEMOGLOBIN 0.5 % (0.5-1.5); BG DEOXYHEMOGLOBIN 10.9 % (0.0-5.0); BG FRACTION INSPIRED OXYGEN 36; BG HCO3 ACT 31.1 mmol/L (22.0-26.0); BG METHEMOGLOBIN 0.4 % (0.0-1.5); BG OXYHEMOGLOBIN 88.2 % (94.0-97.0); BG PCO2 53.7 mmHg (35.0-45.0); BG PH 7.381 (7.350-7.450); BG PO2 56.7 mmHg (75.0-100.0); BG SAMPLE SITE RIGHT RADIAL; BG TOTAL HEMOGLOBIN 12.4 g/dL (12.0-18.0); BG VENT MODE NASAL CANNULA
[2019-03-25 20:00] VITALS: BP 121/59
[2019-03-25] MEDS: ATORVASTATIN CALCIUM 10MG TABLET PO SCH (20:05)
[2019-03-25] MEDS: LAMOTRIGINE 100MG TABLET PO SCH (20:06)
[2019-03-25] MEDS: POLYETHYLENE GLYCOL 3350 (17GM) 1 DOSE PACK PO SCH (20:06)
[2019-03-25] MEDS: ZIPRASIDONE HCL 80MG CAPSULE PO SCH (20:06)
[2019-03-25] MEDS: IPRATROPIUM/ALBUTEROL 0.5-3(2.5)MG/3ML NEB HHN SCH (21:16)
[2019-03-25] MEDS: BUDESONIDE 0.5MG/2ML NEB HHN SCH (21:16)
[2019-03-25] MEDS: TRAZODONE HCL 100MG TABLET PO SCH (21:30)
[2019-03-26] MEDS: IPRATROPIUM/ALBUTEROL 0.5-3(2.5)MG/3ML NEB HHN SCH ×4 (01:39→19:52)
[2019-03-26] MEDS: DILTIAZEM HCL 90MG TABLET PO SCH ×3 (06:00→21:26)
[2019-03-26 07:27] LABS: BASOPHILS % 0.3 % (0.0-2.0); EOSINOPHILS % 1.8 % (0.0-5.0); HEMATOCRIT. 32.7 % (36.0-48.0); HEMOGLOBIN. 10.9 g/dL (12.0-16.0); LYMPHOCYTES % 37.5 % (20.0-50.0); MEAN CORPUSCULAR HEMOGLOBIN 31.7 pg (28.0-32.0); MEAN CORPUSCULAR VOLUME 95.5 fL (81.0-99.0); MEAN PLATELET VOLUME 7.2 fl (7.4-10.4); MONOCYTES % 13.4 % (2.0-8.0); PLATELET 242 x1000/uL (130-400); RED BLOOD CELL COUNT 3.42 mill/uL (4.2-5.4); RED CELL DISTRIBUTION WIDTH 15.9 % (11.6-14.6)
[2019-03-26 07:30] LABS: CHLORIDE 104 mEq/L (98-107)
[2019-03-26] MEDS: BUDESONIDE 0.5MG/2ML NEB HHN SCH ×2 (07:30→19:52)
[2019-03-26 08:05] VITALS: BP 142/71
[2019-03-26] MEDS: DOCUSATE SODIUM 100MG CAPSULE PO SCH ×2 (08:34→16:55)
[2019-03-26] MEDS: FERROUS SULFATE 325MG TABLET PO SCH ×3 (08:34→16:50)
[2019-03-26] MEDS: ZINC SULFATE 220 MG ( 50 ) CAPSULE PO SCH (08:34)
[2019-03-26] MEDS: ASCORBIC ACID 500 MG TABLET PO SCH (08:34)
[2019-03-26] MEDS: FAMOTIDINE 20MG TABLET PO SCH ×2 (08:34→20:32)
[2019-03-26] MEDS: ASPIRIN 81MG TABLET PO SCH (08:34)
[2019-03-26] MEDS: VENLAFAXINE HCL 37.5MG SR CAPSULE 24HR PO SCH (08:35)
[2019-03-26] MEDS: ENOXAPARIN 40MG/0.4ML SYR SUBCUT SCH ×2 (08:35→20:33)
[2019-03-26] MEDS: NYSTATIN 100,000 UNITS/GM CREAM 15GM TOP SCH ×3 (08:42→16:54)
[2019-03-26] MEDS: ALPRAZOLAM 0.25 MG TABLET PO PRN (09:14)
[2019-03-26] MEDS: HYDROMORPHONE HCL/PF 2MG/ML CPJ SUBCUT PRN ×2 (13:53→22:18)
[2019-03-26] MEDS ORDERED: FUROSEMIDE 40MG TABLET PO NR (17:00)
[2019-03-26 20:18] VITALS: BP 122/71
[2019-03-26] MEDS: ATORVASTATIN CALCIUM 10MG TABLET PO SCH (20:31)
[2019-03-26] MEDS: LAMOTRIGINE 100MG TABLET PO SCH (20:32)
[2019-03-26] MEDS: POLYETHYLENE GLYCOL 3350 (17GM) 1 DOSE PACK PO SCH (20:33)
[2019-03-26] MEDS: ZIPRASIDONE HCL 80MG CAPSULE PO SCH (20:33)
[2019-03-26] MEDS: HYDROCODONE/ACETAMINOPHEN 10/325MG TABLET PO PRN (20:34)
[2019-03-26] MEDS: TRAZODONE HCL 100MG TABLET PO SCH (21:25)
[2019-03-27] MEDS: IPRATROPIUM/ALBUTEROL 0.5-3(2.5)MG/3ML NEB HHN SCH ×3 (01:18→13:09)
[2019-03-27] MEDS: HYDROCODONE/ACETAMINOPHEN 10/325MG TABLET PO PRN ×2 (03:12→12:42)
[2019-03-27] MEDS: DILTIAZEM HCL 90MG TABLET PO SCH ×2 (06:22→14:07)
[2019-03-27] MEDS: BUDESONIDE 0.5MG/2ML NEB HHN SCH (07:13)
[2019-03-27 08:00] VITALS: BP 111/48
[2019-03-27] MEDS ORDERED: FUROSEMIDE 40MG TABLET PO SCH (09:00)
[2019-03-27] MEDS: DOCUSATE SODIUM 100MG CAPSULE PO SCH ×2 (09:05→17:48)
[2019-03-27] MEDS: VENLAFAXINE HCL 37.5MG SR CAPSULE 24HR PO SCH (09:05)
[2019-03-27] MEDS: FERROUS SULFATE 325MG TABLET PO SCH ×3 (09:05→17:48)
[2019-03-27] MEDS: FAMOTIDINE 20MG TABLET PO SCH (09:05)
[2019-03-27] MEDS: ASPIRIN 81MG TABLET PO SCH (09:05)
[2019-03-27] MEDS: ASCORBIC ACID 500 MG TABLET PO SCH (09:05)
[2019-03-27] MEDS: ZINC SULFATE 220 MG ( 50 ) CAPSULE PO SCH (09:05)
[2019-03-27] MEDS: ENOXAPARIN 40MG/0.4ML SYR SUBCUT SCH (09:06)
[2019-03-27] MEDS: NYSTATIN POWDER 15GM TOP SCH ×3 (09:06→17:48)
[2019-03-27] MEDS: NYSTATIN 100,000 UNITS/GM CREAM 15GM TOP SCH ×3 (09:07→17:49)
[2019-03-27] MEDS: ALPRAZOLAM 0.25 MG TABLET PO PRN (10:28)
[2019-03-27] MEDS ORDERED: HYDROMORPHONE HCL/PF 2MG/ML CPJ SUBCUT PRN (13:45)
[2019-03-27 16:13] VITALS: BP 125/85
== END 2019-03-27 18:46 | disposition home health service (06) | DRG 73 ==
LOC: MERGE 19:15
PROVIDERS: ADMIT Physical Medicine & Rehabilitation Spinal Cord Injury Medicine; ATTEND Internal Medicine
DX: G60.0 Hereditary motor and sensory neuropathy (principal); J96.20 Acute and chronic respiratory failure, unspecified whether with hypoxia or hypercapnia; J18.9 Pneumonia, unspecified organism; G82.50 Quadriplegia, unspecified; E44.0 Moderate protein-calorie malnutrition; J44.0 Chronic obstructive pulmonary disease with (acute) lower respiratory infection; J44.1 Chronic obstructive pulmonary disease with (acute) exacerbation; Z68.41 Body mass index [BMI] 40.0-44.9, adult; E66.01 Morbid (severe) obesity due to excess calories; E55.9 Vitamin D deficiency, unspecified; G89.4 Chronic pain syndrome; E78.5 Hyperlipidemia, unspecified; F17.210 Nicotine dependence, cigarettes, uncomplicated; F31.9 Bipolar disorder, unspecified; F41.9 Anxiety disorder, unspecified; G47.33 Obstructive sleep apnea (adult) (pediatric); I10 Essential (primary) hypertension; I25.10 Atherosclerotic heart disease of native coronary artery without angina pectoris; M21.371 Foot drop, right foot; M21.372 Foot drop, left foot; Z96.653 Presence of artificial knee joint, bilateral; Z96.643 Presence of artificial hip joint, bilateral; Z99.81 Dependence on supplemental oxygen; D50.9 Iron deficiency anemia, unspecified; R73.9 Hyperglycemia, unspecified
CPT/HCPCS: 36415; 36600; 71045; 73060; 80048; 80061; 82306; 82375; 82607; 82728; 82746; 82805; 83540; 83550; 83735; 84100; 84134; 84443; 92610; 93005; 93306; 93970; 94640; 94660; 97110; 97116; 97163; 97167; 97530; 97535; A6261; J0692; J1170; J1650; J2270; J7050; J7060; J7620; J7626; Q0163

== ENCOUNTER 2019-04-24 10:18 | Emergency (ER) | payer MEDICARE, MEDICAID ==
[~2019-04-24] VITALS: Ht 160 cm; Wt 122.0 kg
[~2019-04-24 10:18] MED LIST changes: -ALPR1TAB2 MT; -B50 GT; -FURO-152 MT; -HYDR-4009 MT; -LAM2 PO; -POTA10CA42 MT; -SIMV80TA90 MT; -TOP100 MT; -VALS80TA2 MT; -VENL75CA55 MT; -ZIPR80CA2 PO
[2019-04-24] MEDS ORDERED: FAMOTIDINE 20MG/2ML VIAL IV STA (10:32)
[2019-04-24] MEDS ORDERED: MAGNESIUM/ALUMINUM HYDROXIDE/SIMETHICONE 30ML UDC PO STA (10:32)
[2019-04-24] MEDS ORDERED: ONDANSETRON HCL 4MG/2ML INJ IV STA (10:32)
[2019-04-24] MEDS ORDERED: SODIUM CHLORIDE 0.9% 1,000 ML IV ONE (10:32)
[2019-04-24 11:14] LABS: BASOPHILS % 1.5 % (0.0-2.0); HEMATOCRIT. 38.4 % (36.0-48.0); HEMOGLOBIN. 12.7 g/dL (12.0-16.0); LYMPHOCYTES % 24.8 % (20.0-50.0); MEAN CORPUSCULAR HEMOGLOBIN 31.5 pg (28.0-32.0); MEAN CORPUSCULAR VOLUME 94.9 fL (81.0-99.0); MEAN PLATELET VOLUME 7.5 fl (7.4-10.4); MONOCYTES % 8.1 % (2.0-8.0); NEUTROPHILS % 63.6 % (40.0-76.0); PLATELET 283 x1000/uL (130-400); RED BLOOD CELL COUNT 4.04 mill/uL (4.2-5.4)
[2019-04-24 11:18] LABS: CHLORIDE 110 mEq/L (98-107)
[2019-04-24 11:20] LABS: INR 1.2
[2019-04-24] MEDS ORDERED: DICYCLOMINE HCL 10MG/ML 2ML AMP IM STA (12:44)
[2019-04-24] MEDS ORDERED: MORPHINE SULFATE 4 MG/ML CPJ (NOT FOR IM USE) IV ONE (12:45)
[2019-04-24] MEDS ORDERED: METOCLOPRAMIDE HCL 10MG/2ML VIAL IV ONE (12:45)
[2019-04-24] MEDS ORDERED: DIPHENHYDRAMINE 50MG/ML VIAL IV ONE (12:45)
[2019-04-24 13:52] LABS: CLARITY URINE CLEAR (CLEAR); COLOR URINE YELLOW (YELLOW); KETONES URINE NEGATIVE (NEGATIVE); LEUKOCYTE ESTERASE URINE NEGATIVE (NEGATIVE); NITRITE URINE NEGATIVE (NEGATIVE); OCCULT BLOOD URINE NEGATIVE (NEGATIVE); PH URINE 7.5 (4.5-8.0); PROTEIN URINE NEGATIVE (NEGATIVE); SPECIFIC GRAVITY URINE 1.017 (1.005-1.030); UROBILINOGEN URINE 0.2 E.U./dL (0.2-1.0)
[2019-04-24 15:01] VITALS: BP 137/74
== END 2019-04-24 15:05 | disposition home or self-care (01) ==
LOC: ER 10:18
DX: R10.13 Epigastric pain (principal); G89.29 Other chronic pain; K21.9 Gastro-esophageal reflux disease without esophagitis; D72.829 Elevated white blood cell count, unspecified; E78.00 Pure hypercholesterolemia, unspecified; J44.9 Chronic obstructive pulmonary disease, unspecified; F31.9 Bipolar disorder, unspecified; I11.0 Hypertensive heart disease with heart failure; I50.9 Heart failure, unspecified; F17.210 Nicotine dependence, cigarettes, uncomplicated; Z96.649 Presence of unspecified artificial hip joint; Z96.659 Presence of unspecified artificial knee joint; Z88.6 Allergy status to analgesic agent; Z88.8 Allergy status to other drugs, medicaments and biological substances; Z91.030 Bee allergy status; Z91.040 Latex allergy status; Z91.018 Allergy to other foods
CPT/HCPCS: 36415; 71045; 76705; 80053; 81003; 83690; 85025; 85610; 93005; 96361; 96372; 96374; 96375; 99284; J0500; J1200; J2270; J2405; J2765; J3490; J7030

== ENCOUNTER 2019-04-29 16:11 | Emergency (ER) | payer MEDICARE, MEDICAID ==
[~2019-04-29] VITALS: Ht 167.6 cm; Wt 120.0 kg
[2019-04-29] MEDS ORDERED: MAGNESIUM/ALUMINUM HYDROXIDE/SIMETHICONE 30ML UDC PO STA (18:12)
[2019-04-29] MEDS ORDERED: METOCLOPRAMIDE HCL 10MG/2ML VIAL IV STA (18:12)
[2019-04-29] MEDS ORDERED: SODIUM CHLORIDE 0.9% 1,000 ML IV ONE (18:12)
[2019-04-29] MEDS ORDERED: FAMOTIDINE 20MG/2ML VIAL IV STA (18:12)
[2019-04-29] MEDS ORDERED: DIPHENHYDRAMINE 50MG/ML VIAL IV ONE (18:15)
[2019-04-29 18:59] LABS: CLARITY URINE TURBID (CLEAR); COLOR URINE YELLOW (YELLOW); KETONES URINE NEGATIVE (NEGATIVE); LEUKOCYTE ESTERASE URINE TRACE (NEGATIVE); NITRITE URINE NEGATIVE (NEGATIVE); OCCULT BLOOD URINE NEGATIVE (NEGATIVE); PH URINE 8.5 (4.5-8.0); PROTEIN URINE NEGATIVE (NEGATIVE); SPECIFIC GRAVITY URINE 1.021 (1.005-1.030); UROBILINOGEN URINE 0.2 E.U./dL (0.2-1.0)
[2019-04-29 19:08] LABS: BASOPHILS % 0.2 % (0.0-2.0); EOSINOPHILS % 2.8 % (0.0-5.0); HEMATOCRIT. 41.6 % (36.0-48.0); HEMOGLOBIN. 13.9 g/dL (12.0-16.0); MEAN CORPUSCULAR HEMOGLOBIN 31.8 pg (28.0-32.0); MEAN CORPUSCULAR VOLUME 95.2 fL (81.0-99.0); MEAN PLATELET VOLUME 7.4 fl (7.4-10.4); MONOCYTES % 8.4 % (2.0-8.0); NEUTROPHILS % 57.6 % (40.0-76.0); PLATELET 377 x1000/uL (130-400); RED BLOOD CELL COUNT 4.37 mill/uL (4.2-5.4); RED CELL DISTRIBUTION WIDTH 15.8 % (11.6-14.6)
[2019-04-29 19:14] LABS: CHLORIDE 111 mEq/L (98-107)
[2019-04-29 19:17] LABS: INR 1.1; PROTHROMBIN TIME 11.8 sec (9.6-11.0)
[2019-04-29] MEDS ORDERED: ONDANSETRON HCL 4MG/2ML INJ IV ONE (20:30)
[2019-04-29] MEDS ORDERED: CEFTRIAXONE 1 G PREMIX 50 ML IV ONE (20:30)
[2019-04-29] MEDS ORDERED: DICYCLOMINE 10 MG/5 ML ORAL SYR PO STA (21:38)
[2019-04-29 22:23] VITALS: BP 176/92
== END 2019-04-29 22:30 | disposition home or self-care (01) ==
LOC: ER 16:11
DX: N39.0 Urinary tract infection, site not specified (principal); R19.7 Diarrhea, unspecified; I10 Essential (primary) hypertension
CPT/HCPCS: 36415; 74176; 80053; 81003; 83690; 85025; 85610; 93005; 96361; 96374; 96375; 99284; J0696; J1200; J2405; J2765; J3490; J7030

== ENCOUNTER 2019-05-15 13:47 | Emergency (ER) | payer MEDICARE, MEDICAID ==
[~2019-05-15] VITALS: Ht 165.1 cm; Wt 110.0 kg
[2019-05-15] MEDS ORDERED: HYDROCODONE/ACETAMINOPHEN 5/325MG TABLET PO STA (16:30)
[2019-05-15] MEDS ORDERED: CYCLOBENZAPRINE 10MG TABLET PO ONE (16:45)
[2019-05-15 17:08] VITALS: BP 139/88
== END 2019-05-15 17:33 | disposition home or self-care (01) ==
LOC: ER 13:47
DX: M79.602 Pain in left arm (principal); J18.9 Pneumonia, unspecified organism; I11.0 Hypertensive heart disease with heart failure; F31.9 Bipolar disorder, unspecified; I50.9 Heart failure, unspecified; J44.9 Chronic obstructive pulmonary disease, unspecified; F17.210 Nicotine dependence, cigarettes, uncomplicated; Z91.81 History of falling; Z99.3 Dependence on wheelchair; Z88.6 Allergy status to analgesic agent; Z91.030 Bee allergy status; Z91.040 Latex allergy status; Z91.018 Allergy to other foods
CPT/HCPCS: 71045; 73060; 93005; 99283

== ENCOUNTER 2019-05-22 12:36 | Inpatient (IN) | payer MEDICARE, MEDICAID ==
[~2019-05-22] VITALS: Ht 157.5 cm; Wt 119.7 kg
[2019-05-22] MEDS ORDERED: ALBUTEROL (0.083%) 2.5MG/3ML NEB HHN STA (13:00)
[2019-05-22] MEDS ORDERED: IPRATROPIUM BROMIDE (0.02%) 0.5MG/2.5ML NEB HHN STA (13:00)
[2019-05-22] MEDS ORDERED: METHYLPREDNISOLONE SOD SUCC 125 MG/2 ML VIAL IV STA (13:00)
[2019-05-22 13:40] LABS: BG BILEVEL POS AIRWAY PRESSURE ST=15/5; BG CARBOXYHEMOGLOBIN 3.8 % (0.5-1.5); BG DEOXYHEMOGLOBIN 0.5 % (0.0-5.0); BG FRACTION INSPIRED OXYGEN 100; BG HCO3 ACT 24.6 mmol/L (22.0-26.0); BG METHEMOGLOBIN 0.2 % (0.0-1.5); BG OXYGEN SATURATION 99.5 % (92.0-98.5); BG OXYHEMOGLOBIN 95.5 % (94.0-97.0); BG PCO2 44.5 mmHg (35.0-45.0); BG PH 7.361 (7.350-7.450); BG PO2 498.5 mmHg (75.0-100.0); BG PRESSURE SUPPORT 10; BG SAMPLE SITE RIGHT RADIAL; BG TOTAL HEMOGLOBIN 14.1 g/dL (12.0-18.0); BG VENT MODE MASK - BIPAP; BG VENT RATE 16 set
[2019-05-22] MEDS ORDERED: ALBUTEROL (0.5%) 2.5MG/0.5ML NEB HHN ONE (13:51)
[2019-05-22 14:43] LABS: EOSINOPHILS % 1.9 % (0.0-5.0); HEMATOCRIT. 41.2 % (36.0-48.0); HEMOGLOBIN. 13.6 g/dL (12.0-16.0); LYMPHOCYTES % 35.5 % (20.0-50.0); MEAN CORPUSCULAR HEMOGLOBIN 30.8 pg (28.0-32.0); MEAN CORPUSCULAR VOLUME 93.4 fL (81.0-99.0); MEAN PLATELET VOLUME 8.2 fl (7.4-10.4); MONOCYTES % 7.3 % (2.0-8.0); NEUTROPHILS % 54.3 % (40.0-76.0); PLATELET 270 x1000/uL (130-400); RED BLOOD CELL COUNT 4.42 mill/uL (4.2-5.4); RED CELL DISTRIBUTION WIDTH 15.3 % (11.6-14.6)
[2019-05-22] MEDS ORDERED: MORPHINE SULFATE 4 MG/ML CPJ (NOT FOR IM USE) IV ONE ×2 (14:45→16:15)
[2019-05-22 14:47] LABS: CHLORIDE 106 mEq/L (98-107)
[2019-05-22] MEDS ORDERED: LEVOFLOXACIN 750MG PREMIX 150 ML IV ONE (15:45)
[2019-05-22] MEDS ORDERED: DOCUSATE SODIUM 100MG CAPSULE PO PRN (17:30)
[2019-05-22] MEDS ORDERED: IPRATROPIUM/ALBUTEROL 0.5-3(2.5)MG/3ML NEB INH PRN (17:30)
[2019-05-22] MEDS ORDERED: CLONIDINE 0.1MG TABLET PO PRN (17:30)
[2019-05-22] MEDS ORDERED: MAGNESIUM/ALUMINUM HYDROXIDE/SIMETHICONE 30ML UDC PO PRN (17:30)
[2019-05-22] MEDS ORDERED: ONDANSETRON HCL 4MG/2ML INJ IV PRN (17:30)
[2019-05-22] MEDS ORDERED: ACETAMINOPHEN 325MG TABLET PO PRN (17:30)
[2019-05-22] MEDS ORDERED: HYDROCODONE/ACETAMINOPHEN 5/325MG TABLET PO PRN (17:30)
[2019-05-22 18:42] VITALS: BP 139/77
[2019-05-22 19:30] VITALS: BP 141/78
[2019-05-22 20:00] VITALS: BP 143/76
[2019-05-22] MEDS: MORPHINE SULFATE 2 MG/ML CPJ (NOT FOR IM USE) IV PRN (20:07)
[2019-05-22] MEDS: METHYLPREDNISOLONE SOD SUCC 125 MG/2 ML VIAL IV SCH (20:19)
[2019-05-22] MEDS: ENOXAPARIN 40MG/0.4ML SYR SUBCUT SCH (20:20)
[2019-05-22] MEDS: IPRATROPIUM/ALBUTEROL 0.5-3(2.5)MG/3ML NEB INH SCH (20:34)
[2019-05-22 22:00] VITALS: BP 146/76
[2019-05-23] VITALS (11 sets, daily range): BP systolic 135–169; BP diastolic 62–99
[2019-05-23 00:35] LABS: CREATINE KINASE 50 IU/L (26-192)
[2019-05-23] MEDS: MORPHINE SULFATE 2 MG/ML CPJ (NOT FOR IM USE) IV PRN ×4 (01:30→20:09)
[2019-05-23] MEDS: METHYLPREDNISOLONE SOD SUCC 125 MG/2 ML VIAL IV SCH ×3 (01:49→13:00)
[2019-05-23] MEDS: IPRATROPIUM/ALBUTEROL 0.5-3(2.5)MG/3ML NEB INH SCH ×3 (02:17→13:39)
[2019-05-23] MEDS ORDERED: ALPRAZOLAM 0.5 MG TABLET PO PRN ×2 (06:00→12:30)
[2019-05-23 08:00] LABS: HEMATOCRIT. 40.8 % (36.0-48.0); HEMOGLOBIN. 13.4 g/dL (12.0-16.0); MEAN CORPUSCULAR HEMOGLOBIN 30.7 pg (28.0-32.0); MEAN CORPUSCULAR VOLUME 93.3 fL (81.0-99.0); MEAN PLATELET VOLUME 8.3 fl (7.4-10.4); PLATELET 258 x1000/uL (130-400); RED BLOOD CELL COUNT 4.37 mill/uL (4.2-5.4); RED CELL DISTRIBUTION WIDTH 15.1 % (11.6-14.6)
[2019-05-23] MEDS: ENOXAPARIN 40MG/0.4ML SYR SUBCUT SCH (08:26)
[2019-05-23] MEDS: ASPIRIN 81MG EC TABLET PO SCH (08:26)
[2019-05-23 08:33] LABS: CHLORIDE 106 mEq/L (98-107)
[2019-05-23 08:40] LABS: LDL CHOLESTEROL 111 mg/dL (5-100)
[2019-05-23 08:41] LABS: CREATINE KINASE 48 IU/L (26-192)
[2019-05-23 08:45] LABS: HDL CHOLESTEROL 64 mg/dL (40-59)
[2019-05-23] MEDS ORDERED: FUROSEMIDE 40MG/4ML VIAL IV SCH (09:00)
[2019-05-23] MEDS ORDERED: FUROSEMIDE 40MG TABLET PO SCH (12:30)
[2019-05-23] MEDS: VENLAFAXINE HCL 75MG TABLET PO SCH (12:58)
[2019-05-23] MEDS: NICOTINE 21MG PATCH TD SCH (12:59)
[2019-05-23] MEDS: ZIPRASIDONE HCL 20MG CAPSULE PO SCH (14:35)
[2019-05-23] MEDS ORDERED: IPRATROPIUM/ALBUTEROL 0.5-3(2.5)MG/3ML NEB HHN PRN (14:45)
[2019-05-23] MEDS: PANTOPRAZOLE 40MG DR TABLET PO SCH (15:41)
[2019-05-23 17:45] LABS: PLATELET ESTIMATE NORMAL
[2019-05-23] MEDS: ENOXAPARIN 30MG/0.3ML SYR SUBCUT SCH (20:22)
[2019-05-23] MEDS: TOPIRAMATE 100MG TABLET PO SCH (20:26)
[2019-05-23] MEDS: METHYLPREDNISOLONE SOD SUCC 40 MG/ML VIAL IV SCH (20:31)
[2019-05-23] MEDS ORDERED: DIPHENHYDRAMINE 50MG CAPSULE PO SCH (21:00)
[2019-05-23] MEDS ORDERED: LAMOTRIGINE 100MG TABLET PO SCH (21:00)
[2019-05-23] MEDS ORDERED: TRAZODONE HCL 50MG TABLET PO SCH (21:00)
[2019-05-23] MEDS ORDERED: ATORVASTATIN CALCIUM 40MG TABLET PO SCH (21:00)
[2019-05-23] MEDS: IPRATROPIUM/ALBUTEROL 0.5-3(2.5)MG/3ML NEB HHN SCH (21:03)
[2019-05-24] VITALS (10 sets, daily range): BP systolic 121–169; BP diastolic 69–95
[2019-05-24] MEDS: IPRATROPIUM/ALBUTEROL 0.5-3(2.5)MG/3ML NEB HHN SCH ×5 (01:04→15:36)
[2019-05-24] MEDS: MORPHINE SULFATE 2 MG/ML CPJ (NOT FOR IM USE) IV PRN ×4 (01:12→14:07)
[2019-05-24] MEDS: METHYLPREDNISOLONE SOD SUCC 40 MG/ML VIAL IV SCH ×2 (05:34→12:52)
[2019-05-24] MEDS: PANTOPRAZOLE 40MG DR TABLET PO SCH (07:04)
[2019-05-24] MEDS ORDERED: FUROSEMIDE 40MG TABLET PO SCH (09:00)
[2019-05-24] MEDS: VENLAFAXINE HCL 75MG TABLET PO SCH (09:11)
[2019-05-24] MEDS: ZIPRASIDONE HCL 20MG CAPSULE PO SCH (09:11)
[2019-05-24] MEDS: ASPIRIN 81MG EC TABLET PO SCH (09:11)
[2019-05-24] MEDS: TOPIRAMATE 100MG TABLET PO SCH (09:11)
[2019-05-24] MEDS: NICOTINE 21MG PATCH TD SCH (09:12)
[2019-05-24] MEDS: ENOXAPARIN 30MG/0.3ML SYR SUBCUT SCH (12:52)
[2019-05-24] MEDS ORDERED: FAMOTIDINE 20MG TABLET PO SCH (21:00)
== END 2019-05-24 18:26 | disposition home or self-care (01) | DRG 189 ==
LOC: ER 12:36 → 3WST 15:35 → EDBEDREQ 15:44 → SUPCPDRO 17:22 → ENRESERV 17:31 → 3WST 18:58
PROVIDERS: ADMIT Hospitalist; ATTEND Hospitalist
PROC: 5A09457 Assistance with Respiratory Ventilation, 24-96 Consecutive Hours, Continuous Positive Airway Pressure (ICD-10-PCS; principal; 2019-05-22)
DX: J96.00 Acute respiratory failure, unspecified whether with hypoxia or hypercapnia (principal); J44.1 Chronic obstructive pulmonary disease with (acute) exacerbation; Z68.42 Body mass index [BMI] 45.0-49.9, adult; I11.0 Hypertensive heart disease with heart failure; I50.9 Heart failure, unspecified; E66.01 Morbid (severe) obesity due to excess calories; K21.9 Gastro-esophageal reflux disease without esophagitis; F31.9 Bipolar disorder, unspecified; F41.9 Anxiety disorder, unspecified; G47.33 Obstructive sleep apnea (adult) (pediatric); L93.0 Discoid lupus erythematosus; G60.0 Hereditary motor and sensory neuropathy; F17.210 Nicotine dependence, cigarettes, uncomplicated; Z96.641 Presence of right artificial hip joint; Z96.653 Presence of artificial knee joint, bilateral; Z60.2 Problems related to living alone; Z98.891 History of uterine scar from previous surgery; Z99.81 Dependence on supplemental oxygen; Z93.3 Colostomy status; Z82.5 Family history of asthma and other chronic lower respiratory diseases; Z79.899 Other long term (current) drug therapy; Z88.8 Allergy status to other drugs, medicaments and biological substances; Z91.040 Latex allergy status; Z91.030 Bee allergy status; Z99.3 Dependence on wheelchair
CPT/HCPCS: 36415; 36600; 71045; 80061; 82375; 82550; 82805; 83880; 84484; 93005; 93970; 94640; 94660; 99285; J1650; J1940; J1956; J2270; J2920; J2930; J7611; J7620; Q0163

== ENCOUNTER 2019-05-28 10:44 | Emergency (ER) | payer MEDICARE, MEDICAID ==
[~2019-05-28] VITALS: Ht 157.5 cm; Wt 121.0 kg
[2019-05-28] MEDS ORDERED: HYDROCODONE/ACETAMINOPHEN 5/325MG TABLET PO ONE ×2 (11:30→13:45)
[2019-05-28 14:24] VITALS: BP 129/89
== END 2019-05-28 14:28 | disposition home or self-care (01) ==
LOC: ER 10:44
DX: M25.561 Pain in right knee (principal); M25.562 Pain in left knee; W19.XXXA Unspecified fall, initial encounter; Y93.89 Activity, other specified; Y92.89 Other specified places as the place of occurrence of the external cause; Y99.8 Other external cause status; J45.909 Unspecified asthma, uncomplicated; F31.9 Bipolar disorder, unspecified; I11.0 Hypertensive heart disease with heart failure; I50.9 Heart failure, unspecified; J44.9 Chronic obstructive pulmonary disease, unspecified; Z79.899 Other long term (current) drug therapy; Z88.1 Allergy status to other antibiotic agents; Z91.030 Bee allergy status; Z88.6 Allergy status to analgesic agent; Z91.040 Latex allergy status
CPT/HCPCS: 73562; 99283

== ENCOUNTER 2019-06-15 16:38 | Inpatient (IN) | payer MEDICARE, MEDICAID ==
[~2019-06-15] VITALS: Ht 157.5 cm; Wt 122.0 kg
[2019-06-15] MEDS ORDERED: ONDANSETRON HCL 4MG/2ML INJ IV STA (17:22)
[2019-06-15] MEDS ORDERED: MORPHINE SULFATE 4 MG/ML CPJ (NOT FOR IM USE) IV STA (17:22)
[2019-06-15 18:04] LABS: BASOPHILS % 0.2 % (0.0-2.0); EOSINOPHILS % 0.2 % (0.0-5.0); HEMATOCRIT. 36.3 % (36.0-48.0); HEMOGLOBIN. 12.1 g/dL (12.0-16.0); LYMPHOCYTES % 25.5 % (20.0-50.0); MEAN PLATELET VOLUME 7.9 fl (7.4-10.4); MONOCYTES % 11.3 % (2.0-8.0); NEUTROPHILS % 62.8 % (40.0-76.0); PLATELET 269 x1000/uL (130-400); RED BLOOD CELL COUNT 3.91 mill/uL (4.2-5.4); RED CELL DISTRIBUTION WIDTH 15.1 % (11.6-14.6)
[2019-06-15 18:11] LABS: CHLORIDE 110 mEq/L (98-107); INR 1.3; PROTHROMBIN TIME 13.2 sec (9.6-11.0)
[2019-06-15 19:53] LABS: CLARITY URINE CLEAR (CLEAR); COLOR URINE YELLOW (YELLOW); KETONES URINE NEGATIVE (NEGATIVE); LEUKOCYTE ESTERASE URINE NEGATIVE (NEGATIVE); NITRITE URINE NEGATIVE (NEGATIVE); OCCULT BLOOD URINE NEGATIVE (NEGATIVE); PH URINE 5.5 (4.5-8.0); PROTEIN URINE NEGATIVE (NEGATIVE); SPECIFIC GRAVITY URINE 1.014 (1.005-1.030); UROBILINOGEN URINE 0.2 E.U./dL (0.2-1.0)
[2019-06-15] MEDS ORDERED: ACETAMINOPHEN 325MG TABLET PO PRN (21:00)
[2019-06-15] MEDS ORDERED: GUAIFENESIN 200MG/10ML SUGAR FREE UDC PO PRN (21:00)
[2019-06-15] MEDS ORDERED: MAGNESIUM/ALUMINUM HYDROXIDE/SIMETHICONE 30ML UDC PO PRN (21:00)
[2019-06-15] MEDS ORDERED: ENOXAPARIN 40MG/0.4ML SYR SUBCUT SCH (21:00)
[2019-06-15] MEDS ORDERED: CLONIDINE 0.1MG TABLET PO PRN (21:00)
[2019-06-15] MEDS ORDERED: NITROGLYCERIN 0.4MG TABLET SL SL PRN (21:00)
[2019-06-15] MEDS ORDERED: IPRATROPIUM/ALBUTEROL 0.5-3(2.5)MG/3ML NEB NEB PRN (21:00)
[2019-06-15] MEDS ORDERED: ONDANSETRON HCL 4MG/2ML INJ IV PRN (21:00)
[2019-06-15] MEDS ORDERED: DIPHENHYDRAMINE 50MG/ML VIAL IV PRN (21:00)
[2019-06-15] MEDS ORDERED: DOCUSATE SODIUM 100MG CAPSULE PO PRN (21:00)
[2019-06-15] MEDS ORDERED: HYDROCODONE/ACETAMINOPHEN 5/325MG TABLET PO PRN (21:30)
[2019-06-15 21:39] LABS: *AMPHETAMINES SCREEN URINE NEGATIVE (NEGATIVE); *BARBITURATES SCREEN URINE NEGATIVE (NEGATIVE)
[2019-06-15 21:40] LABS: *BENZODIAZEPINES SCREEN URINE PRESUMTIVE POSITIVE (NEGATIVE); *COCAINE SCREEN URINE NEGATIVE (NEGATIVE); CANNABINOID URINE SCREEN NEGATIVE (NEGATIVE); METHADONE URINE SCREEN NEGATIVE (NEGATIVE); OPIATES URINE SCREEN PRESUMTIVE POSITIVE (NEGATIVE); PHENCYCLIDINE URINE SCREEN NEGATIVE (NEGATIVE)
[2019-06-15] MEDS: MORPHINE SULFATE 2 MG/ML CPJ (NOT FOR IM USE) IV PRN (21:41)
[2019-06-15 22:30] VITALS: BP 117/57
[2019-06-16] MEDS: TOPIRAMATE 100MG TABLET PO SCH ×2 (00:26→21:59)
[2019-06-16] MEDS: ATORVASTATIN CALCIUM 40MG TABLET PO SCH ×2 (00:26→21:59)
[2019-06-16] MEDS: LISINOPRIL 5MG TABLET PO SCH ×3 (00:26→21:59)
[2019-06-16] MEDS: LAMOTRIGINE 100MG TABLET PO SCH ×3 (00:26→22:00)
[2019-06-16] MEDS: GUAIFENESIN/DM 600MG/30MG ER TAB 12HR PO SCH ×3 (00:33→21:59)
[2019-06-16] MEDS: ALPRAZOLAM 0.5 MG TABLET PO PRN ×2 (00:33→14:21)
[2019-06-16] MEDS: ZOLPIDEM TARTRATE 5MG TABLET PO PRN (00:33)
[2019-06-16] MEDS: IPRATROPIUM/ALBUTEROL 0.5-3(2.5)MG/3ML NEB HHN SCH ×6 (00:41→22:15)
[2019-06-16 00:50] VITALS: BP 117/57
[2019-06-16] MEDS: MORPHINE SULFATE 2 MG/ML CPJ (NOT FOR IM USE) IV PRN ×5 (02:05→21:58)
[2019-06-16 04:00] VITALS: BP 97/56
[2019-06-16 08:00] VITALS: BP 102/43
[2019-06-16] MEDS: VENLAFAXINE HCL 50MG TABLET PO SCH (08:58)
[2019-06-16] MEDS: FAMOTIDINE 20MG TABLET PO SCH ×2 (08:58→21:59)
[2019-06-16] MEDS: ASPIRIN 81MG EC TABLET PO SCH (08:58)
[2019-06-16 12:00] VITALS: BP 100/64
[2019-06-16 16:00] VITALS: BP 124/74
[2019-06-16 20:00] VITALS: BP 110/66
[2019-06-17] VITALS: BP 113/47
[2019-06-17] MEDS: IPRATROPIUM/ALBUTEROL 0.5-3(2.5)MG/3ML NEB HHN SCH ×6 (00:52→20:44)
[2019-06-17] MEDS: MORPHINE SULFATE 2 MG/ML CPJ (NOT FOR IM USE) IV PRN ×5 (02:56→21:32)
[2019-06-17 04:00] VITALS: BP 104/47
[2019-06-17] MEDS: LAMOTRIGINE 100MG TABLET PO SCH ×2 (09:00→21:23)
[2019-06-17] MEDS: GUAIFENESIN/DM 600MG/30MG ER TAB 12HR PO SCH ×2 (09:00→21:22)
[2019-06-17] MEDS: VENLAFAXINE HCL 50MG TABLET PO SCH (09:00)
[2019-06-17] MEDS: FAMOTIDINE 20MG TABLET PO SCH ×2 (09:00→21:22)
[2019-06-17] MEDS: LISINOPRIL 5MG TABLET PO SCH ×2 (09:01→21:23)
[2019-06-17] MEDS: ASPIRIN 81MG EC TABLET PO SCH (09:01)
[2019-06-17] MEDS: ALPRAZOLAM 0.5 MG TABLET PO PRN (09:42)
[2019-06-17 20:00] VITALS: BP 130/72
[2019-06-17] MEDS: ATORVASTATIN CALCIUM 40MG TABLET PO SCH (21:22)
[2019-06-17] MEDS: TOPIRAMATE 100MG TABLET PO SCH (21:23)
[2019-06-17] MEDS: ZOLPIDEM TARTRATE 5MG TABLET PO PRN (23:15)
[2019-06-18] VITALS: BP 118/50
[2019-06-18] MEDS: IPRATROPIUM/ALBUTEROL 0.5-3(2.5)MG/3ML NEB HHN SCH ×4 (01:11→12:18)
[2019-06-18] MEDS: MORPHINE SULFATE 2 MG/ML CPJ (NOT FOR IM USE) IV PRN ×3 (01:50→09:58)
[2019-06-18 04:00] VITALS: BP 131/68
[2019-06-18 08:00] VITALS: BP 118/56
[2019-06-18] MEDS: LISINOPRIL 5MG TABLET PO SCH (08:33)
[2019-06-18] MEDS: ASPIRIN 81MG EC TABLET PO SCH (08:33)
[2019-06-18] MEDS: VENLAFAXINE HCL 50MG TABLET PO SCH (08:33)
[2019-06-18] MEDS: LAMOTRIGINE 100MG TABLET PO SCH (08:33)
[2019-06-18] MEDS: FAMOTIDINE 20MG TABLET PO SCH (08:33)
[2019-06-18] MEDS: GUAIFENESIN/DM 600MG/30MG ER TAB 12HR PO SCH (08:33)
[2019-06-18 10:34] VITALS: BP 118/56
[2019-06-18 12:00] VITALS: BP 132/75
== END 2019-06-18 14:00 | DRG 948 ==
LOC: ER 16:38 → 6EST 20:18 → SUPCPDRO 20:44 → ENRESERV 21:14 → 6EST 23:44
PROVIDERS: ADMIT Internal Medicine; ATTEND Internal Medicine
DX: R53.1 Weakness (principal); I50.32 Chronic diastolic (congestive) heart failure; E44.0 Moderate protein-calorie malnutrition; Z68.42 Body mass index [BMI] 45.0-49.9, adult; G60.0 Hereditary motor and sensory neuropathy; I11.0 Hypertensive heart disease with heart failure; F31.9 Bipolar disorder, unspecified; F41.9 Anxiety disorder, unspecified; F17.210 Nicotine dependence, cigarettes, uncomplicated; E66.9 Obesity, unspecified; E78.00 Pure hypercholesterolemia, unspecified; J44.9 Chronic obstructive pulmonary disease, unspecified; Z82.5 Family history of asthma and other chronic lower respiratory diseases; Z86.718 Personal history of other venous thrombosis and embolism; Z79.01 Long term (current) use of anticoagulants; Z87.01 Personal history of pneumonia (recurrent); Z91.040 Latex allergy status; Z91.018 Allergy to other foods; Z88.8 Allergy status to other drugs, medicaments and biological substances
CPT/HCPCS: 36415; 71045; 80061; 80305; 81003; 83036; 83880; 84484; 93005; 93970; 94640; 94660; 96374; 97162; 97166; 99285; J1200; J2270; J2405; J7620

== ENCOUNTER 2019-07-15 13:02 | Inpatient (IN) | payer MEDICARE, MEDICAID ==
[~2019-07-15] VITALS: Ht 157.5 cm; Wt 119.7 kg
[2019-07-15] MEDS ORDERED: ACETAMINOPHEN WITH CODEINE 300/30MG TABLET PO STA (13:15)
[2019-07-15] MEDS ORDERED: METHYLPREDNISOLONE SOD SUCC 125 MG/2 ML VIAL IV STA (13:15)
[2019-07-15] MEDS ORDERED: ALBUTEROL (0.083%) 2.5MG/3ML NEB HHN STA (13:15)
[2019-07-15 13:55] LABS: BASOPHILS % 0.6 % (0.0-2.0); EOSINOPHILS % 1.2 % (0.0-5.0); HEMATOCRIT. 41.5 % (36.0-48.0); LYMPHOCYTES % 34.5 % (20.0-50.0); MEAN CORPUSCULAR HEMOGLOBIN 31.1 pg (28.0-32.0); MEAN CORPUSCULAR VOLUME 92.3 fL (81.0-99.0); MEAN PLATELET VOLUME 8.4 fl (7.4-10.4); MONOCYTES % 11.5 % (2.0-8.0); NEUTROPHILS % 52.2 % (40.0-76.0); PLATELET 293 x1000/uL (130-400); RED CELL DISTRIBUTION WIDTH 15.7 % (11.6-14.6)
[2019-07-15 14:03] LABS: CHLORIDE 107 mEq/L (98-107)
[2019-07-15] MEDS ORDERED: MORPHINE SULFATE 4 MG/ML CPJ (NOT FOR IM USE) IV STA (15:14)
[2019-07-15] MEDS ORDERED: ONDANSETRON HCL 4MG/2ML INJ IV STA (15:14)
[2019-07-15 16:21] LABS: *AMPHETAMINES SCREEN URINE NEGATIVE (NEGATIVE); *BARBITURATES SCREEN URINE NEGATIVE (NEGATIVE); *BENZODIAZEPINES SCREEN URINE PRESUMTIVE POSITIVE (NEGATIVE); *COCAINE SCREEN URINE NEGATIVE (NEGATIVE); METHADONE URINE SCREEN NEGATIVE (NEGATIVE); OPIATES URINE SCREEN PRESUMTIVE POSITIVE (NEGATIVE); PHENCYCLIDINE URINE SCREEN NEGATIVE (NEGATIVE)
[2019-07-15 16:23] LABS: CANNABINOID URINE SCREEN NEGATIVE (NEGATIVE)
[2019-07-15] MEDS ORDERED: ONDANSETRON HCL 4MG/2ML INJ IV PRN (19:15)
[2019-07-15] MEDS ORDERED: IPRATROPIUM/ALBUTEROL 0.5-3(2.5)MG/3ML NEB NEB PRN (19:15)
[2019-07-15] MEDS ORDERED: LORAZEPAM 2MG/ML CPJ IV PRN (19:15)
[2019-07-15] MEDS ORDERED: HYDROCODONE/ACETAMINOPHEN 5/325MG TABLET PO PRN (19:15)
[2019-07-15] MEDS ORDERED: NA PHOS,M-B/NA PHOS,DI-BA ENEMA 118ML PR PRN (19:15)
[2019-07-15] MEDS ORDERED: GUAIFENESIN 200MG/10ML SUGAR FREE UDC PO PRN (19:15)
[2019-07-15] MEDS ORDERED: ACETAMINOPHEN 325MG TABLET PO PRN (19:15)
[2019-07-15] MEDS ORDERED: CLONIDINE 0.1MG TABLET PO PRN (19:15)
[2019-07-15] MEDS ORDERED: DOCUSATE SODIUM 100MG CAPSULE PO PRN (19:15)
[2019-07-15] MEDS ORDERED: LEVOFLOXACIN 500MG PREMIX 100 ML IV SCH (19:15)
[2019-07-15] MEDS ORDERED: MAGNESIUM/ALUMINUM HYDROXIDE/SIMETHICONE 30ML UDC PO PRN (19:15)
[2019-07-15] MEDS: FUROSEMIDE 40MG/4ML VIAL IV SCH (20:05)
[2019-07-15] MEDS: METHYLPREDNISOLONE SOD SUCC 125 MG/2 ML VIAL IV SCH (20:09)
[2019-07-15] MEDS: MORPHINE SULFATE 2 MG/ML CPJ (NOT FOR IM USE) IV PRN (20:10)
[2019-07-15 21:10] VITALS: BP 141/76
[2019-07-15] MEDS ORDERED: INFLUENZA VIRUS VACCINE(AFLURIA) 0.5ML SYR IM ONE (23:00)
[2019-07-15] MEDS: ENOXAPARIN 30MG/0.3ML SYR SUBCUT SCH (23:10)
[2019-07-15] MEDS: AMLODIPINE 10MG TABLET PO SCH (23:10)
[2019-07-16] VITALS: BP 141/85
[2019-07-16] MEDS: MORPHINE SULFATE 2 MG/ML CPJ (NOT FOR IM USE) IV PRN ×5 (00:49→23:52)
[2019-07-16 00:54] LABS: CREATINE KINASE 81 IU/L (26-192)
[2019-07-16] MEDS: IPRATROPIUM/ALBUTEROL 0.5-3(2.5)MG/3ML NEB NEB SCH ×4 (02:01→20:37)
[2019-07-16] MEDS: METHYLPREDNISOLONE SOD SUCC 125 MG/2 ML VIAL IV SCH ×4 (02:07→21:49)
[2019-07-16 04:00] VITALS: BP 132/86
[2019-07-16 06:31] LABS: BASOPHILS % 0.2 % (0.0-2.0); HEMATOCRIT. 43.3 % (36.0-48.0); HEMOGLOBIN. 14.4 g/dL (12.0-16.0); LYMPHOCYTES % 12.8 % (20.0-50.0); MEAN CORPUSCULAR HEMOGLOBIN 30.9 pg (28.0-32.0); MEAN CORPUSCULAR VOLUME 92.7 fL (81.0-99.0); MEAN PLATELET VOLUME 8.3 fl (7.4-10.4); MONOCYTES % 1.6 % (2.0-8.0); NEUTROPHILS % 85.4 % (40.0-76.0); PLATELET 278 x1000/uL (130-400); RED BLOOD CELL COUNT 4.67 mill/uL (4.2-5.4)
[2019-07-16 06:33] LABS: CHLORIDE 104 mEq/L (98-107)
[2019-07-16 06:42] LABS: CREATINE KINASE 63 IU/L (26-192)
[2019-07-16 08:00] VITALS: BP 123/80
[2019-07-16] MEDS: FUROSEMIDE 40MG/4ML VIAL IV SCH (08:43)
[2019-07-16] MEDS: ENOXAPARIN 30MG/0.3ML SYR SUBCUT SCH (08:44)
[2019-07-16] MEDS: AMLODIPINE 10MG TABLET PO SCH (08:45)
[2019-07-16 10:01] LABS: BG BASE EXCESS 2.4 mmol/L (-2.0-2.0); BG CARBOXYHEMOGLOBIN 1.6 % (0.5-1.5); BG DEOXYHEMOGLOBIN 10.9 % (0.0-5.0); BG FRACTION INSPIRED OXYGEN 36; BG HCO3 ACT 28.7 mmol/L (22.0-26.0); BG METHEMOGLOBIN 0.3 % (0.0-1.5); BG OXYGEN SATURATION 88.9 % (92.0-98.5); BG OXYHEMOGLOBIN 87.2 % (94.0-97.0); BG PCO2 50.6 mmHg (35.0-45.0); BG PH 7.372 (7.350-7.450); BG PO2 54.3 mmHg (75.0-100.0); BG SAMPLE SITE RIGHT BRACHIAL; BG TOTAL HEMOGLOBIN 15.9 g/dL (12.0-18.0); BG VENT MODE NASAL CANNULA
[2019-07-16] MEDS: FUROSEMIDE 40MG TABLET PO SCH (10:30)
[2019-07-16] MEDS ORDERED: ALPRAZOLAM 0.5 MG TABLET PO PRN (11:00)
[2019-07-16 12:00] VITALS: BP 149/82
[2019-07-16] MEDS: VENLAFAXINE HCL 37.5MG TABLET PO SCH (13:02)
[2019-07-16 16:00] VITALS: BP 107/64
[2019-07-16 20:00] VITALS: BP 126/66
[2019-07-16] MEDS: ATORVASTATIN CALCIUM 40MG TABLET PO SCH (21:47)
[2019-07-16] MEDS: ENOXAPARIN 40MG/0.4ML SYR SUBCUT SCH (21:47)
[2019-07-16] MEDS: ZIPRASIDONE HCL 40MG CAPSULE PO SCH (21:48)
[2019-07-16] MEDS: LAMOTRIGINE 100MG TABLET PO SCH (21:48)
[2019-07-16] MEDS: DIPHENHYDRAMINE 50MG CAPSULE PO SCH (21:48)
[2019-07-16] MEDS: TRAZODONE HCL 50MG TABLET PO SCH (21:48)
[2019-07-16] MEDS: ZIPRASIDONE HCL 20MG CAPSULE PO SCH (21:49)
[2019-07-16] MEDS: TOPIRAMATE 100MG TABLET PO SCH (21:49)
[2019-07-16] MEDS: LEVOFLOXACIN 500MG PREMIX 100 ML IV SCH (21:58)
[2019-07-17] VITALS (7 sets, daily range): BP systolic 104–151; BP diastolic 52–83
[2019-07-17] MEDS: IPRATROPIUM/ALBUTEROL 0.5-3(2.5)MG/3ML NEB NEB SCH ×3 (01:50→13:38)
[2019-07-17] MEDS: METHYLPREDNISOLONE SOD SUCC 125 MG/2 ML VIAL IV SCH ×4 (02:04→20:34)
[2019-07-17] MEDS: MORPHINE SULFATE 2 MG/ML CPJ (NOT FOR IM USE) IV PRN ×4 (05:06→18:50)
[2019-07-17] MEDS: FUROSEMIDE 40MG TABLET PO SCH (08:26)
[2019-07-17] MEDS: ENOXAPARIN 40MG/0.4ML SYR SUBCUT SCH ×2 (08:26→20:34)
[2019-07-17] MEDS: VENLAFAXINE HCL 37.5MG TABLET PO SCH (08:27)
[2019-07-17] MEDS: AMLODIPINE 10MG TABLET PO SCH (08:27)
[2019-07-17] MEDS: TOPIRAMATE 100MG TABLET PO SCH ×2 (08:29→20:38)
[2019-07-17] MEDS: TRAZODONE HCL 50MG TABLET PO SCH (20:34)
[2019-07-17] MEDS: LAMOTRIGINE 100MG TABLET PO SCH (20:35)
[2019-07-17] MEDS: ZIPRASIDONE HCL 40MG CAPSULE PO SCH (20:35)
[2019-07-17] MEDS: ATORVASTATIN CALCIUM 40MG TABLET PO SCH (20:35)
[2019-07-17] MEDS: LEVOFLOXACIN 500MG PREMIX 100 ML IV SCH (20:38)
[2019-07-17] MEDS: DIPHENHYDRAMINE 50MG CAPSULE PO SCH (20:38)
[2019-07-17] MEDS: ZIPRASIDONE HCL 20MG CAPSULE PO SCH (20:38)
== END 2019-07-17 21:40 | disposition home health service (06) | DRG 291 ==
LOC: ER 13:02 → 7WST 16:08 → EDBEDREQ 16:17 → EDBEDREQTM 16:17 → ENRESERV 20:02
PROVIDERS: ADMIT Hospitalist; ATTEND Hospitalist
PROC: 5A09357 Assistance with Respiratory Ventilation, Less than 24 Consecutive Hours, Continuous Positive Airway Pressure (ICD-10-PCS; principal; 2019-07-16)
PROC: 5A09357 Assistance with Respiratory Ventilation, Less than 24 Consecutive Hours, Continuous Positive Airway Pressure (ICD-10-PCS; 2019-07-17)
DX: I11.0 Hypertensive heart disease with heart failure (principal); J96.00 Acute respiratory failure, unspecified whether with hypoxia or hypercapnia; J18.9 Pneumonia, unspecified organism; J44.0 Chronic obstructive pulmonary disease with (acute) lower respiratory infection; Z68.42 Body mass index [BMI] 45.0-49.9, adult; J44.1 Chronic obstructive pulmonary disease with (acute) exacerbation; I50.23 Acute on chronic systolic (congestive) heart failure; E66.01 Morbid (severe) obesity due to excess calories; E78.5 Hyperlipidemia, unspecified; F17.210 Nicotine dependence, cigarettes, uncomplicated; F31.9 Bipolar disorder, unspecified; G47.33 Obstructive sleep apnea (adult) (pediatric); K21.9 Gastro-esophageal reflux disease without esophagitis; Z96.641 Presence of right artificial hip joint; Z96.653 Presence of artificial knee joint, bilateral; Z99.3 Dependence on wheelchair; Z99.81 Dependence on supplemental oxygen; Z91.040 Latex allergy status; Z91.018 Allergy to other foods; Z71.6 Tobacco abuse counseling; Z98.891 History of uterine scar from previous surgery; Z88.5 Allergy status to narcotic agent
CPT/HCPCS: 36415; 36600; 71045; 80305; 82375; 82550; 82805; 83880; 84484; 90686; 93005; 93970; 94640; 94660; 99285; C1893; J1650; J1940; J1956; J2270; J2405; J2930; J7611; J7620; Q0163; A4315

== ENCOUNTER 2019-07-22 14:33 | Inpatient (IN) | payer MEDICARE, MEDICAID ==
[~2019-07-22] VITALS: Ht 157.5 cm; Wt 136.1 kg
[2019-07-22] MEDS ORDERED: ALBUTEROL (0.083%) 2.5MG/3ML NEB HHN STA (15:31)
[2019-07-22] MEDS ORDERED: IPRATROPIUM BROMIDE (0.02%) 0.5MG/2.5ML NEB HHN STA (15:31)
[2019-07-22] MEDS ORDERED: METHYLPREDNISOLONE SOD SUCC 125 MG/2 ML VIAL IV STA (15:31)
[2019-07-22] MEDS ORDERED: ASPIRIN 81MG TABLET PO ONE (15:45)
[2019-07-22] MEDS ORDERED: MAGNESIUM 2 G PREMIX 50 ML IV ONE (15:45)
[2019-07-22 16:11] LABS: BASOPHILS % 0.7 % (0.0-2.0); EOSINOPHILS % 1.2 % (0.0-5.0); HEMATOCRIT. 41.9 % (36.0-48.0); LYMPHOCYTES % 26.3 % (20.0-50.0); MEAN CORPUSCULAR HEMOGLOBIN 30.8 pg (28.0-32.0); MEAN CORPUSCULAR VOLUME 92.4 fL (81.0-99.0); MEAN PLATELET VOLUME 7.7 fl (7.4-10.4); NEUTROPHILS % 63.8 % (40.0-76.0); PLATELET 277 x1000/uL (130-400); RED BLOOD CELL COUNT 4.54 mill/uL (4.2-5.4); RED CELL DISTRIBUTION WIDTH 15.1 % (11.6-14.6)
[2019-07-22 16:16] LABS: CHLORIDE 104 mEq/L (98-107)
[2019-07-22 16:17] LABS: PARTIAL THROMBOPLASTIN TIME 26.7 sec (23.4-31.0); PROTHROMBIN TIME 10.7 sec (9.6-11.0)
[2019-07-22] MEDS ORDERED: SODIUM CHLORIDE 0.9% 1000ML BAG (SEPSIS BOLUS) IV ONE (17:00)
[2019-07-22] MEDS ORDERED: HYDROCODONE/ACETAMINOPHEN 5/325MG TABLET PO ONE (17:00)
[2019-07-22] MEDS ORDERED: LEVOFLOXACIN 750MG PREMIX 150 ML IV ONE (17:00)
[2019-07-22] MEDS ORDERED: GUAIFENESIN 200MG/10ML SUGAR FREE UDC PO PRN (18:30)
[2019-07-22] MEDS ORDERED: DOCUSATE SODIUM 100MG CAPSULE PO PRN (18:30)
[2019-07-22] MEDS ORDERED: CLONIDINE 0.1MG TABLET PO PRN (18:30)
[2019-07-22] MEDS ORDERED: ZOLPIDEM TARTRATE 5MG TABLET PO PRN (18:30)
[2019-07-22] MEDS ORDERED: HYDROCODONE/ACETAMINOPHEN 10/325MG TABLET PO PRN (18:30)
[2019-07-22] MEDS ORDERED: NITROGLYCERIN 0.4MG TABLET SL SL PRN (18:30)
[2019-07-22] MEDS ORDERED: MAGNESIUM/ALUMINUM HYDROXIDE/SIMETHICONE 30ML UDC PO PRN (18:30)
[2019-07-22] MEDS ORDERED: LORAZEPAM 0.5MG TABLET PO PRN (18:30)
[2019-07-22] MEDS ORDERED: ACETAMINOPHEN 325MG TABLET PO PRN (18:30)
[2019-07-22] MEDS ORDERED: CEFEPIME 1,000 MG in DEXTROSE 5% WATER 50 ML IV SCH (18:30)
[2019-07-22] MEDS ORDERED: ONDANSETRON HCL 4MG/2ML INJ IV PRN (18:30)
[2019-07-22] MEDS ORDERED: ALPRAZOLAM 0.5 MG TABLET PO PRN (18:30)
[2019-07-22] MEDS ORDERED: IPRATROPIUM/ALBUTEROL 0.5-3(2.5)MG/3ML NEB NEB PRN (18:30)
[2019-07-22] MEDS: MORPHINE SULFATE 2 MG/ML CPJ (NOT FOR IM USE) IV PRN ×2 (19:24→23:36)
[2019-07-22] MEDS ORDERED: DEXTROSE 50% WATER 50ML SYRINGE IV PRN (19:45)
[2019-07-22 20:00] VITALS: BP 175/99
[2019-07-22 20:38] VITALS: BP 175/99
[2019-07-22 21:00] VITALS: BP 150/60
[2019-07-22] MEDS: BLOOD SUGAR DIAGNOSTIC STRIP TEST SCH (22:08)
[2019-07-22] MEDS: TOPIRAMATE 100MG TABLET PO SCH (22:14)
[2019-07-22] MEDS: LAMOTRIGINE 100MG TABLET PO SCH (22:14)
[2019-07-22] MEDS: INSULIN LISPRO 100 UNITS/ML SUBCUT SCH (22:18)
[2019-07-22] MEDS: TRAZODONE HCL 50MG TABLET PO SCH (23:35)
[2019-07-23] VITALS (7 sets, daily range): BP systolic 114–175; BP diastolic 60–99
[2019-07-23 00:17] LABS: CLARITY URINE CLEAR (CLEAR); COLOR URINE YELLOW (YELLOW); KETONES URINE NEGATIVE (NEGATIVE); LEUKOCYTE ESTERASE URINE NEGATIVE (NEGATIVE); NITRITE URINE NEGATIVE (NEGATIVE); OCCULT BLOOD URINE NEGATIVE (NEGATIVE); PROTEIN URINE NEGATIVE (NEGATIVE); SPECIFIC GRAVITY URINE 1.013 (1.005-1.030); UROBILINOGEN URINE 0.2 E.U./dL (0.2-1.0)
[2019-07-23 01:27] LABS: CREATINE KINASE 36 IU/L (26-192)
[2019-07-23 01:28] LABS: CREATINE KINASE MB FRACTION < 1.0 ng/mL (0.5-3.6)
[2019-07-23] MEDS: METHYLPREDNISOLONE SOD SUCC 125 MG/2 ML VIAL IV SCH ×3 (01:45→17:03)
[2019-07-23] MEDS: CEFEPIME 1,000 MG in DEXTROSE 5% WATER 50 ML IV SCH ×2 (01:46→12:04)
[2019-07-23] MEDS: MORPHINE SULFATE 2 MG/ML CPJ (NOT FOR IM USE) IV PRN ×5 (04:09→21:34)
[2019-07-23] MEDS: BLOOD SUGAR DIAGNOSTIC STRIP TEST SCH ×4 (06:32→21:07)
[2019-07-23] MEDS: INSULIN LISPRO 100 UNITS/ML SUBCUT SCH ×4 (06:47→21:17)
[2019-07-23 08:26] LABS: CREATINE KINASE 34 IU/L (26-192)
[2019-07-23] MEDS: FUROSEMIDE 40MG TABLET PO SCH (08:26)
[2019-07-23] MEDS: GUAIFENESIN/DM 600MG/30MG ER TAB 12HR PO SCH ×2 (08:26→21:19)
[2019-07-23] MEDS: ZIPRASIDONE HCL 20MG CAPSULE PO SCH (08:26)
[2019-07-23] MEDS: TOPIRAMATE 100MG TABLET PO SCH ×2 (08:26→21:19)
[2019-07-23 08:27] LABS: CREATINE KINASE MB FRACTION < 1.0 ng/mL (0.5-3.6)
[2019-07-23] MEDS: POTASSIUM CHLORIDE 20MEQ TABLET SR PO SCH (08:27)
[2019-07-23] MEDS: FAMOTIDINE 20MG TABLET PO SCH ×2 (08:27→21:19)
[2019-07-23] MEDS: ENOXAPARIN 40MG/0.4ML SYR SUBCUT SCH (08:28)
[2019-07-23] MEDS: NYSTATIN POWDER 15GM TOP SCH ×2 (13:15→17:03)
[2019-07-23] MEDS: IPRATROPIUM/ALBUTEROL 0.5-3(2.5)MG/3ML NEB HHN SCH ×2 (16:00→21:26)
[2019-07-23] MEDS: MONTELUKAST SODIUM 10MG TABLET PO SCH (17:03)
[2019-07-23] MEDS: LAMOTRIGINE 100MG TABLET PO SCH (21:19)
[2019-07-23] MEDS: TRAZODONE HCL 50MG TABLET PO SCH (21:19)
[2019-07-23] MEDS: LORATADINE 10MG TABLET PO SCH (21:23)
[2019-07-23] MEDS: FLUTICASONE PROPIONATE 50MCG/SPRAY BOTTLE BOTHNSTRLS SCH (21:25)
[2019-07-24] VITALS: BP 94/62
[2019-07-24] MEDS: METHYLPREDNISOLONE SOD SUCC 125 MG/2 ML VIAL IV SCH ×2 (00:19→09:26)
[2019-07-24] MEDS: IPRATROPIUM/ALBUTEROL 0.5-3(2.5)MG/3ML NEB HHN SCH ×6 (01:03→21:55)
[2019-07-24] MEDS: MORPHINE SULFATE 2 MG/ML CPJ (NOT FOR IM USE) IV PRN ×4 (03:34→20:04)
[2019-07-24 04:00] VITALS: BP 150/78
[2019-07-24] MEDS: BLOOD SUGAR DIAGNOSTIC STRIP TEST SCH ×4 (06:44→20:57)
[2019-07-24 08:00] VITALS: BP 120/91
[2019-07-24] MEDS: ZIPRASIDONE HCL 20MG CAPSULE PO SCH (09:25)
[2019-07-24] MEDS: TOPIRAMATE 100MG TABLET PO SCH ×2 (09:25→20:45)
[2019-07-24] MEDS: GUAIFENESIN/DM 600MG/30MG ER TAB 12HR PO SCH ×2 (09:25→20:58)
[2019-07-24] MEDS: FAMOTIDINE 20MG TABLET PO SCH ×2 (09:25→20:46)
[2019-07-24] MEDS: FUROSEMIDE 40MG TABLET PO SCH (09:26)
[2019-07-24] MEDS: POTASSIUM CHLORIDE 20MEQ TABLET SR PO SCH (09:26)
[2019-07-24] MEDS: ENOXAPARIN 40MG/0.4ML SYR SUBCUT SCH ×2 (09:27→20:46)
[2019-07-24] MEDS: NYSTATIN POWDER 15GM TOP SCH ×2 (09:29→17:04)
[2019-07-24] MEDS: FLUTICASONE PROPIONATE 50MCG/SPRAY BOTTLE BOTHNSTRLS SCH ×2 (09:29→20:58)
[2019-07-24] MEDS: INSULIN LISPRO 100 UNITS/ML SUBCUT SCH ×4 (09:35→21:09)
[2019-07-24 12:00] VITALS: BP 143/79
[2019-07-24] MEDS: METHYLPREDNISOLONE SOD SUCC 40 MG/ML VIAL IV SCH ×2 (15:14→21:18)
[2019-07-24 16:00] VITALS: BP 140/80
[2019-07-24] MEDS: MONTELUKAST SODIUM 10MG TABLET PO SCH (17:04)
[2019-07-24 20:00] VITALS: BP 146/85
[2019-07-24] MEDS: TRAZODONE HCL 50MG TABLET PO SCH (20:46)
[2019-07-24] MEDS: LAMOTRIGINE 100MG TABLET PO SCH (20:46)
[2019-07-24] MEDS: LORATADINE 10MG TABLET PO SCH (20:46)
[2019-07-25] VITALS: BP 126/66
[2019-07-25] MEDS: IPRATROPIUM/ALBUTEROL 0.5-3(2.5)MG/3ML NEB HHN SCH ×3 (00:47→08:42)
[2019-07-25] MEDS: MORPHINE SULFATE 2 MG/ML CPJ (NOT FOR IM USE) IV PRN ×2 (01:47→06:13)
[2019-07-25 04:00] VITALS: BP 127/71
[2019-07-25] MEDS: METHYLPREDNISOLONE SOD SUCC 40 MG/ML VIAL IV SCH (06:12)
[2019-07-25] MEDS: BLOOD SUGAR DIAGNOSTIC STRIP TEST SCH (06:42)
[2019-07-25] MEDS: INSULIN LISPRO 100 UNITS/ML SUBCUT SCH (06:43)
[2019-07-25 08:00] VITALS: BP 127/77
[2019-07-25] MEDS: GUAIFENESIN/DM 600MG/30MG ER TAB 12HR PO SCH (09:00)
[2019-07-25] MEDS: ZIPRASIDONE HCL 20MG CAPSULE PO SCH (09:34)
[2019-07-25] MEDS: POTASSIUM CHLORIDE 20MEQ TABLET SR PO SCH (09:34)
[2019-07-25] MEDS: FLUTICASONE PROPIONATE 50MCG/SPRAY BOTTLE BOTHNSTRLS SCH (09:35)
[2019-07-25] MEDS: FUROSEMIDE 40MG TABLET PO SCH (09:35)
[2019-07-25] MEDS: TOPIRAMATE 100MG TABLET PO SCH (09:35)
[2019-07-25] MEDS: ENOXAPARIN 40MG/0.4ML SYR SUBCUT SCH (09:35)
[2019-07-25] MEDS: FAMOTIDINE 20MG TABLET PO SCH (09:35)
[2019-07-25] MEDS: NYSTATIN POWDER 15GM TOP SCH (09:58)
[2019-07-25 10:15] VITALS: BP 127/76
== END 2019-07-25 13:30 | disposition home or self-care (01) | DRG 189 ==
LOC: ER 14:33 → 5WST 17:16 → ENRESERV 18:23
PROVIDERS: ADMIT Internal Medicine; ATTEND Internal Medicine
PROC: 5A09457 Assistance with Respiratory Ventilation, 24-96 Consecutive Hours, Continuous Positive Airway Pressure (ICD-10-PCS; principal; 2019-07-22)
DX: J96.00 Acute respiratory failure, unspecified whether with hypoxia or hypercapnia (principal); J44.1 Chronic obstructive pulmonary disease with (acute) exacerbation; I50.32 Chronic diastolic (congestive) heart failure; Z68.43 Body mass index [BMI] 50.0-59.9, adult; I11.0 Hypertensive heart disease with heart failure; E11.9 Type 2 diabetes mellitus without complications; E66.01 Morbid (severe) obesity due to excess calories; F17.210 Nicotine dependence, cigarettes, uncomplicated; F31.9 Bipolar disorder, unspecified; G47.33 Obstructive sleep apnea (adult) (pediatric); G60.0 Hereditary motor and sensory neuropathy; K21.9 Gastro-esophageal reflux disease without esophagitis; Z96.641 Presence of right artificial hip joint; Z96.653 Presence of artificial knee joint, bilateral; G89.29 Other chronic pain; J00 Acute nasopharyngitis [common cold]; M32.9 Systemic lupus erythematosus, unspecified; J40 Bronchitis, not specified as acute or chronic; Z99.3 Dependence on wheelchair; Z99.81 Dependence on supplemental oxygen; Z82.49 Family history of ischemic heart disease and other diseases of the circulatory system; Z82.5 Family history of asthma and other chronic lower respiratory diseases; Z91.19 Patient's noncompliance with other medical treatment and regimen; Z88.8 Allergy status to other drugs, medicaments and biological substances; Z91.040 Latex allergy status; Z98.891 History of uterine scar from previous surgery; Z71.6 Tobacco abuse counseling
CPT/HCPCS: 36415; 71045; 80061; 81003; 82550; 82553; 82962; 83036; 83605; 83880; 84484; 93005; 93970; 94644; 99285; J0692; J1650; J1815; J1956; J2270; J2920; J2930; J3475; J7030; J7040; J7060; J7611; J7620; A4315

== ENCOUNTER 2019-08-02 02:49 | Inpatient (IN) | payer MEDICARE, MEDICAID ==
[~2019-08-02] VITALS: Ht 157.5 cm; Wt 129.3 kg
[2019-08-02 03:37] LABS: BASOPHILS % 0.2 % (0.0-2.0); HEMOGLOBIN. 14.1 g/dL (12.0-16.0); MEAN CORPUSCULAR HEMOGLOBIN 30.6 pg (28.0-32.0); MEAN CORPUSCULAR VOLUME 95.6 fL (81.0-99.0); MEAN PLATELET VOLUME 7.6 fl (7.4-10.4); MONOCYTES % 6.6 % (2.0-8.0); NEUTROPHILS % 78.2 % (40.0-76.0); PLATELET 265 x1000/uL (130-400); RED CELL DISTRIBUTION WIDTH 16.1 % (11.6-14.6)
[2019-08-02 03:43] LABS: CHLORIDE 111 mEq/L (98-107)
[2019-08-02] MEDS ORDERED: METHYLPREDNISOLONE SOD SUCC 125 MG/2 ML VIAL IV STA (04:06)
[2019-08-02] MEDS ORDERED: MORPHINE SULFATE 4 MG/ML CPJ (NOT FOR IM USE) IV STA (04:06)
[2019-08-02] MEDS ORDERED: ALBUTEROL (0.083%) 2.5MG/3ML NEB HHN STA (04:06)
[2019-08-02] MEDS ORDERED: ONDANSETRON HCL 4MG/2ML INJ IV STA (04:06)
[2019-08-02] MEDS ORDERED: IPRATROPIUM BROMIDE (0.02%) 0.5MG/2.5ML NEB HHN STA (04:06)
[2019-08-02] MEDS ORDERED: DOCUSATE SODIUM 100MG CAPSULE PO PRN (07:45)
[2019-08-02] MEDS ORDERED: MAGNESIUM/ALUMINUM HYDROXIDE/SIMETHICONE 30ML UDC PO PRN (07:45)
[2019-08-02] MEDS ORDERED: DIPHENHYDRAMINE 50MG/ML VIAL IV PRN (07:45)
[2019-08-02] MEDS ORDERED: HYDROCODONE/ACETAMINOPHEN 10/325MG TABLET PO PRN (07:45)
[2019-08-02] MEDS ORDERED: NITROGLYCERIN 0.4MG TABLET SL SL PRN (07:45)
[2019-08-02] MEDS ORDERED: CLONIDINE 0.1MG TABLET PO PRN (07:45)
[2019-08-02] MEDS ORDERED: IPRATROPIUM/ALBUTEROL 0.5-3(2.5)MG/3ML NEB NEB PRN (07:45)
[2019-08-02] MEDS ORDERED: ONDANSETRON HCL 4MG/2ML INJ IV PRN (07:45)
[2019-08-02] MEDS ORDERED: NA PHOS,M-B/NA PHOS,DI-BA ENEMA 118ML PR PRN (07:45)
[2019-08-02] MEDS ORDERED: GUAIFENESIN 200MG/10ML SUGAR FREE UDC PO PRN (07:45)
[2019-08-02] MEDS ORDERED: ALPRAZOLAM 0.5 MG TABLET PO PRN (07:45)
[2019-08-02] MEDS ORDERED: ACETAMINOPHEN 325MG TABLET PO PRN (07:45)
[2019-08-02 08:35] VITALS: BP 136/74
[2019-08-02 09:00] VITALS: BP 136/74
[2019-08-02] MEDS: ENOXAPARIN 40MG/0.4ML SYR SUBCUT SCH ×2 (09:43→22:34)
[2019-08-02] MEDS: GUAIFENESIN/DM 600MG/30MG ER TAB 12HR PO SCH ×2 (09:44→22:22)
[2019-08-02] MEDS: LAMOTRIGINE 100MG TABLET PO SCH (09:44)
[2019-08-02] MEDS: FUROSEMIDE 20MG TABLET PO SCH ×2 (09:45→22:22)
[2019-08-02] MEDS: SPIRONOLACTONE 25MG TABLET PO SCH ×2 (09:45→22:22)
[2019-08-02] MEDS: FAMOTIDINE 20MG TABLET PO SCH ×2 (09:45→22:22)
[2019-08-02] MEDS: CEFEPIME 1,000 MG in DEXTROSE 5% WATER 50 ML IV SCH (10:59)
[2019-08-02] MEDS: MORPHINE SULFATE 2 MG/ML CPJ (NOT FOR IM USE) IV PRN ×3 (11:00→23:32)
[2019-08-02 12:00] VITALS: BP 142/82
[2019-08-02] MEDS ORDERED: METHYLPREDNISOLONE SOD SUCC 125 MG/2 ML VIAL IV SCH (14:00)
[2019-08-02 14:43] LABS: METHADONE URINE SCREEN NEGATIVE (NEGATIVE)
[2019-08-02 14:44] LABS: *AMPHETAMINES SCREEN URINE NEGATIVE (NEGATIVE); *BARBITURATES SCREEN URINE NEGATIVE (NEGATIVE); *BENZODIAZEPINES SCREEN URINE PRESUMTIVE POSITIVE (NEGATIVE); *COCAINE SCREEN URINE NEGATIVE (NEGATIVE); CANNABINOID URINE SCREEN NEGATIVE (NEGATIVE); OPIATES URINE SCREEN PRESUMTIVE POSITIVE (NEGATIVE); PHENCYCLIDINE URINE SCREEN NEGATIVE (NEGATIVE)
[2019-08-02 16:00] VITALS: BP 138/61
[2019-08-02] MEDS: IPRATROPIUM/ALBUTEROL 0.5-3(2.5)MG/3ML NEB HHN SCH ×2 (16:12→20:14)
[2019-08-02 16:32] LABS: CREATINE KINASE 20 IU/L (26-192)
[2019-08-02 16:33] LABS: CREATINE KINASE MB FRACTION < 1.0 ng/mL (0.5-3.6)
[2019-08-02] MEDS ORDERED: DEXTROSE 50% WATER 50ML SYRINGE IV PRN (17:00)
[2019-08-02] MEDS ORDERED: INFLUENZA VIRUS VACCINE(AFLURIA) 0.5ML SYR IM ONE (17:00)
[2019-08-02] MEDS: BLOOD SUGAR DIAGNOSTIC STRIP TEST SCH ×2 (17:10→21:00)
[2019-08-02] MEDS: INSULIN LISPRO 100 UNITS/ML SUBCUT SCH ×2 (18:15→21:00)
[2019-08-02 20:00] VITALS: BP 142/89
[2019-08-02] MEDS: TRAZODONE HCL 50MG TABLET PO SCH (22:24)
[2019-08-02] MEDS: ZOLPIDEM TARTRATE 5MG TABLET PO PRN (22:35)
[2019-08-03] VITALS: BP 119/65
[2019-08-03] MEDS: IPRATROPIUM/ALBUTEROL 0.5-3(2.5)MG/3ML NEB HHN SCH ×6 (00:16→20:53)
[2019-08-03] MEDS: CEFEPIME 1,000 MG in DEXTROSE 5% WATER 50 ML IV SCH ×2 (00:33→11:44)
[2019-08-03 01:03] LABS: CREATINE KINASE 17 IU/L (26-192)
[2019-08-03 01:04] LABS: CREATINE KINASE MB FRACTION 1.5 ng/mL (0.5-3.6)
[2019-08-03 04:00] VITALS: BP 109/53
[2019-08-03] MEDS: MORPHINE SULFATE 2 MG/ML CPJ (NOT FOR IM USE) IV PRN ×4 (05:45→23:45)
[2019-08-03] MEDS: BLOOD SUGAR DIAGNOSTIC STRIP TEST SCH ×4 (06:35→21:11)
[2019-08-03] MEDS: INSULIN LISPRO 100 UNITS/ML SUBCUT SCH ×4 (06:37→21:24)
[2019-08-03 08:00] VITALS: BP 119/60
[2019-08-03] MEDS: LAMOTRIGINE 100MG TABLET PO SCH (08:43)
[2019-08-03] MEDS: PREDNISONE 20MG TABLET PO SCH (08:43)
[2019-08-03] MEDS: GUAIFENESIN/DM 600MG/30MG ER TAB 12HR PO SCH ×2 (08:44→20:58)
[2019-08-03] MEDS: FAMOTIDINE 20MG TABLET PO SCH ×2 (08:44→20:58)
[2019-08-03] MEDS: SPIRONOLACTONE 25MG TABLET PO SCH ×2 (08:44→20:58)
[2019-08-03] MEDS: FUROSEMIDE 20MG TABLET PO SCH ×2 (08:44→20:57)
[2019-08-03] MEDS: ENOXAPARIN 40MG/0.4ML SYR SUBCUT SCH ×2 (08:44→20:59)
[2019-08-03 12:00] VITALS: BP 110/71
[2019-08-03 16:00] VITALS: BP 116/56
[2019-08-03 20:00] VITALS: BP 131/58
[2019-08-03] MEDS: ZOLPIDEM TARTRATE 5MG TABLET PO PRN (20:57)
[2019-08-03] MEDS: TRAZODONE HCL 50MG TABLET PO SCH (21:00)
[2019-08-04] VITALS: BP 152/81
[2019-08-04] MEDS: CEFEPIME 1,000 MG in DEXTROSE 5% WATER 50 ML IV SCH ×2 (00:10→13:28)
[2019-08-04] MEDS: IPRATROPIUM/ALBUTEROL 0.5-3(2.5)MG/3ML NEB HHN SCH ×6 (00:58→21:56)
[2019-08-04 04:00] VITALS: BP 176/86
[2019-08-04] MEDS: MORPHINE SULFATE 2 MG/ML CPJ (NOT FOR IM USE) IV PRN ×4 (05:52→23:57)
[2019-08-04] MEDS: BLOOD SUGAR DIAGNOSTIC STRIP TEST SCH ×4 (06:25→21:18)
[2019-08-04] MEDS: INSULIN LISPRO 100 UNITS/ML SUBCUT SCH ×4 (07:40→21:19)
[2019-08-04 08:00] VITALS: BP 144/71
[2019-08-04] MEDS: GUAIFENESIN/DM 600MG/30MG ER TAB 12HR PO SCH ×2 (09:00→21:17)
[2019-08-04] MEDS: PREDNISONE 20MG TABLET PO SCH (09:45)
[2019-08-04] MEDS: SPIRONOLACTONE 25MG TABLET PO SCH ×2 (09:46→21:17)
[2019-08-04] MEDS: LAMOTRIGINE 100MG TABLET PO SCH (09:46)
[2019-08-04] MEDS: FAMOTIDINE 20MG TABLET PO SCH ×2 (09:46→21:17)
[2019-08-04] MEDS: FUROSEMIDE 20MG TABLET PO SCH ×2 (09:46→21:17)
[2019-08-04] MEDS: ENOXAPARIN 40MG/0.4ML SYR SUBCUT SCH ×2 (09:51→21:17)
[2019-08-04 12:00] VITALS: BP 133/61
[2019-08-04] MEDS: ZOLPIDEM TARTRATE 5MG TABLET PO PRN (15:13)
[2019-08-04 16:00] VITALS: BP 144/79
[2019-08-04 20:00] VITALS: BP 130/63
[2019-08-04] MEDS: TRAZODONE HCL 50MG TABLET PO SCH (21:17)
[2019-08-05] VITALS: BP 114/57
[2019-08-05] MEDS ORDERED: CEFEPIME 1,000 MG in DEXTROSE 5% WATER 50 ML IV SCH (02:00)
[2019-08-05] MEDS: IPRATROPIUM/ALBUTEROL 0.5-3(2.5)MG/3ML NEB HHN SCH ×3 (02:02→09:11)
[2019-08-05 04:00] VITALS: BP 94/50
[2019-08-05] MEDS: MORPHINE SULFATE 2 MG/ML CPJ (NOT FOR IM USE) IV PRN (06:12)
[2019-08-05] MEDS: INSULIN LISPRO 100 UNITS/ML SUBCUT SCH (07:34)
[2019-08-05] MEDS: BLOOD SUGAR DIAGNOSTIC STRIP TEST SCH (07:34)
[2019-08-05 08:00] VITALS: BP 107/73
[2019-08-05] MEDS: GUAIFENESIN/DM 600MG/30MG ER TAB 12HR PO SCH (08:37)
[2019-08-05] MEDS: PREDNISONE 20MG TABLET PO SCH (08:38)
[2019-08-05] MEDS: ENOXAPARIN 40MG/0.4ML SYR SUBCUT SCH (08:38)
[2019-08-05] MEDS: FAMOTIDINE 20MG TABLET PO SCH (08:38)
[2019-08-05] MEDS: LAMOTRIGINE 100MG TABLET PO SCH (08:38)
[2019-08-05] MEDS: SPIRONOLACTONE 25MG TABLET PO SCH (08:38)
[2019-08-05] MEDS: FUROSEMIDE 20MG TABLET PO SCH (08:39)
[2019-08-05 09:37] VITALS: BP 107/73
== END 2019-08-05 11:51 | disposition home or self-care (01) | DRG 291 ==
LOC: ER 02:49 → 8WST 04:34 → ENRESERV 07:08 → SUPCPDRO 07:34
PROVIDERS: ADMIT Internal Medicine; ATTEND Internal Medicine
PROC: 5A09357 Assistance with Respiratory Ventilation, Less than 24 Consecutive Hours, Continuous Positive Airway Pressure (ICD-10-PCS; principal; 2019-08-02)
PROC: 5A09357 Assistance with Respiratory Ventilation, Less than 24 Consecutive Hours, Continuous Positive Airway Pressure (ICD-10-PCS; 2019-08-03)
PROC: 5A09357 Assistance with Respiratory Ventilation, Less than 24 Consecutive Hours, Continuous Positive Airway Pressure (ICD-10-PCS; 2019-08-04)
PROC: 5A09357 Assistance with Respiratory Ventilation, Less than 24 Consecutive Hours, Continuous Positive Airway Pressure (ICD-10-PCS; 2019-08-05)
DX: I11.0 Hypertensive heart disease with heart failure (principal); J96.00 Acute respiratory failure, unspecified whether with hypoxia or hypercapnia; J44.1 Chronic obstructive pulmonary disease with (acute) exacerbation; E44.1 Mild protein-calorie malnutrition; J45.901 Unspecified asthma with (acute) exacerbation; Z68.43 Body mass index [BMI] 50.0-59.9, adult; I50.33 Acute on chronic diastolic (congestive) heart failure; E66.01 Morbid (severe) obesity due to excess calories; G47.33 Obstructive sleep apnea (adult) (pediatric); Z96.653 Presence of artificial knee joint, bilateral; E11.65 Type 2 diabetes mellitus with hyperglycemia; F31.9 Bipolar disorder, unspecified; E78.00 Pure hypercholesterolemia, unspecified; G60.0 Hereditary motor and sensory neuropathy; F17.210 Nicotine dependence, cigarettes, uncomplicated; M32.9 Systemic lupus erythematosus, unspecified; K21.9 Gastro-esophageal reflux disease without esophagitis; Z96.641 Presence of right artificial hip joint; Z79.4 Long term (current) use of insulin; Z99.81 Dependence on supplemental oxygen; Z82.49 Family history of ischemic heart disease and other diseases of the circulatory system; Z82.5 Family history of asthma and other chronic lower respiratory diseases; Z99.3 Dependence on wheelchair; Z71.6 Tobacco abuse counseling; Z88.8 Allergy status to other drugs, medicaments and biological substances; Z91.030 Bee allergy status; Z91.040 Latex allergy status; Z91.018 Allergy to other foods
CPT/HCPCS: 36415; 71045; 80305; 82550; 82553; 82962; 83036; 83880; 84484; 93005; 94640; 94644; 94660; 96374; 96375; 97161; 97166; 99291; C1893; J0692; J1650; J1815; J2270; J2405; J2930; J7040; J7060; J7512; J7611; J7620; A4315

== ENCOUNTER 2019-08-16 12:17 | Inpatient (IN) | payer MEDICARE, MEDICAID ==
[~2019-08-16] VITALS: Ht 157.5 cm; Wt 123.8 kg
[2019-08-16 13:54] LABS: BASOPHILS % 0.7 % (0.0-2.0); EOSINOPHILS % 0.9 % (0.0-5.0); HEMATOCRIT. 41.9 % (36.0-48.0); HEMOGLOBIN. 13.9 g/dL (12.0-16.0); LYMPHOCYTES % 32.8 % (20.0-50.0); MEAN CORPUSCULAR HEMOGLOBIN 30.9 pg (28.0-32.0); MEAN CORPUSCULAR VOLUME 93.4 fL (81.0-99.0); MEAN PLATELET VOLUME 8.1 fl (7.4-10.4); MONOCYTES % 8.8 % (2.0-8.0); NEUTROPHILS % 56.8 % (40.0-76.0); PLATELET 372 x1000/uL (130-400); RED BLOOD CELL COUNT 4.49 mill/uL (4.2-5.4); RED CELL DISTRIBUTION WIDTH 16.5 % (11.6-14.6)
[2019-08-16 14:00] LABS: CHLORIDE 106 mEq/L (98-107)
[2019-08-16 14:33] LABS: CLARITY URINE CLOUDY (CLEAR); COLOR URINE YELLOW (YELLOW); KETONES URINE NEGATIVE (NEGATIVE); LEUKOCYTE ESTERASE URINE NEGATIVE (NEGATIVE); NITRITE URINE NEGATIVE (NEGATIVE); OCCULT BLOOD URINE NEGATIVE (NEGATIVE); PROTEIN URINE NEGATIVE (NEGATIVE); SPECIFIC GRAVITY URINE 1.016 (1.005-1.030); UROBILINOGEN URINE 0.2 E.U./dL (0.2-1.0)
[2019-08-16 15:00] LABS: *AMPHETAMINES SCREEN URINE NEGATIVE (NEGATIVE); *BARBITURATES SCREEN URINE NEGATIVE (NEGATIVE); *BENZODIAZEPINES SCREEN URINE PRESUMTIVE POSITIVE (NEGATIVE); *COCAINE SCREEN URINE NEGATIVE (NEGATIVE)
[2019-08-16 15:02] LABS: CANNABINOID URINE SCREEN NEGATIVE (NEGATIVE); METHADONE URINE SCREEN NEGATIVE (NEGATIVE); OPIATES URINE SCREEN PRESUMTIVE POSITIVE (NEGATIVE); PHENCYCLIDINE URINE SCREEN NEGATIVE (NEGATIVE)
[2019-08-16] MEDS ORDERED: MORPHINE SULFATE 4 MG/ML CPJ (NOT FOR IM USE) IV ONE (15:45)
[2019-08-16] MEDS ORDERED: SODIUM CHLORIDE 0.9% 1000ML BAG (SEPSIS BOLUS) IV ONE (17:00)
[2019-08-16] MEDS ORDERED: AZITHROMYCIN 500 MG in DEXT 5% WATER 250 ML IV SCH (17:00)
[2019-08-16] MEDS ORDERED: MORPHINE SULFATE 2 MG/ML CPJ (NOT FOR IM USE) IV ONE (17:30)
[2019-08-16 20:00] VITALS: BP 182/82
[2019-08-16 20:30] VITALS: BP 182/88
[2019-08-16] MEDS ORDERED: NA PHOS,M-B/NA PHOS,DI-BA ENEMA 118ML PR PRN (20:30)
[2019-08-16] MEDS ORDERED: ZOLPIDEM TARTRATE 5MG TABLET PO PRN (20:30)
[2019-08-16] MEDS ORDERED: GUAIFENESIN 200MG/10ML SUGAR FREE UDC PO PRN (20:30)
[2019-08-16] MEDS ORDERED: ACETAMINOPHEN 325MG TABLET PO PRN (20:30)
[2019-08-16] MEDS ORDERED: CEFEPIME 1,000 MG in DEXTROSE 5% WATER 50 ML IV SCH (20:30)
[2019-08-16] MEDS ORDERED: CLONIDINE 0.1MG TABLET PO PRN (20:30)
[2019-08-16] MEDS ORDERED: ONDANSETRON HCL 4MG/2ML INJ IV PRN (20:30)
[2019-08-16] MEDS ORDERED: DIPHENHYDRAMINE 50MG/ML VIAL IV PRN (20:30)
[2019-08-16] MEDS ORDERED: NITROGLYCERIN 0.4MG TABLET SL SL PRN (20:30)
[2019-08-16] MEDS ORDERED: DOCUSATE SODIUM 100MG CAPSULE PO PRN (20:30)
[2019-08-16] MEDS ORDERED: TRAMADOL 50MG TABLET PO PRN (20:30)
[2019-08-16] MEDS ORDERED: MAGNESIUM/ALUMINUM HYDROXIDE/SIMETHICONE 30ML UDC PO PRN (20:30)
[2019-08-16] MEDS ORDERED: ALPRAZOLAM 0.5 MG TABLET PO PRN (20:30)
[2019-08-16] MEDS ORDERED: HYDROCODONE/ACETAMINOPHEN 10/325MG TABLET PO PRN (20:30)
[2019-08-16] MEDS ORDERED: IPRATROPIUM/ALBUTEROL 0.5-3(2.5)MG/3ML NEB NEB PRN (20:30)
[2019-08-16] MEDS ORDERED: DEXTROSE 50% WATER 50ML SYRINGE IV PRN (20:45)
[2019-08-16] MEDS: MORPHINE SULFATE 2 MG/ML CPJ (NOT FOR IM USE) IV PRN (23:35)
[2019-08-17] VITALS: BP 119/80
[2019-08-17] MEDS: LAMOTRIGINE 100MG TABLET PO SCH ×2 (00:02→21:32)
[2019-08-17] MEDS: METHYLPREDNISOLONE SOD SUCC 125 MG/2 ML VIAL IV SCH ×2 (00:02→09:24)
[2019-08-17] MEDS: IPRATROPIUM/ALBUTEROL 0.5-3(2.5)MG/3ML NEB HHN SCH ×6 (00:46→21:05)
[2019-08-17 00:55] LABS: CREATINE KINASE 30 IU/L (26-192)
[2019-08-17 00:56] LABS: CREATINE KINASE MB FRACTION 1.1 ng/mL (0.5-3.6)
[2019-08-17] MEDS: CEFEPIME 1,000 MG in DEXTROSE 5% WATER 50 ML IV SCH ×2 (01:54→14:36)
[2019-08-17 04:00] VITALS: BP 135/84
[2019-08-17] MEDS: MORPHINE SULFATE 2 MG/ML CPJ (NOT FOR IM USE) IV PRN ×4 (04:11→22:33)
[2019-08-17 06:29] LABS: CREATINE KINASE 27 IU/L (26-192)
[2019-08-17 06:30] LABS: CREATINE KINASE MB FRACTION < 1.0 ng/mL (0.5-3.6)
[2019-08-17] MEDS: BLOOD SUGAR DIAGNOSTIC STRIP TEST SCH ×4 (06:50→21:33)
[2019-08-17 08:00] VITALS: BP 153/92
[2019-08-17] MEDS: ASCORBIC ACID 500 MG TABLET PO SCH ×2 (09:23→21:32)
[2019-08-17] MEDS: ASPIRIN 325MG EC TABLET PO SCH (09:23)
[2019-08-17] MEDS: ZINC SULFATE 220 MG ( 50 ) CAPSULE PO SCH (09:23)
[2019-08-17] MEDS: FAMOTIDINE 20MG TABLET PO SCH ×2 (09:23→21:32)
[2019-08-17] MEDS: ARIPIPRAZOLE 5MG TABLET PO SCH (09:24)
[2019-08-17] MEDS: ENOXAPARIN 30MG/0.3ML SYR SUBCUT SCH ×2 (09:25→21:33)
[2019-08-17] MEDS: INSULIN LISPRO 100 UNITS/ML SUBCUT SCH ×4 (09:28→21:40)
[2019-08-17] MEDS: FUROSEMIDE 40MG/4ML VIAL IVP SCH ×2 (09:42→21:31)
[2019-08-17 12:00] VITALS: BP 143/74
[2019-08-17] MEDS ORDERED: IPRATROPIUM/ALBUTEROL 0.5-3(2.5)MG/3ML NEB NEB PRN (15:15)
[2019-08-17 16:00] VITALS: BP 147/79
[2019-08-17] MEDS: PREDNISONE 20MG TABLET PO SCH (17:41)
[2019-08-17 20:32] VITALS: BP 132/75
[2019-08-17] MEDS: ATORVASTATIN CALCIUM 40MG TABLET PO SCH (21:32)
[2019-08-17] MEDS: GUAIFENESIN 600MG ER TABLET PO SCH (21:33)
[2019-08-18 00:15] VITALS: BP 122/74
[2019-08-18] MEDS: IPRATROPIUM/ALBUTEROL 0.5-3(2.5)MG/3ML NEB HHN SCH ×6 (00:53→20:25)
[2019-08-18] MEDS: CEFEPIME 1,000 MG in DEXTROSE 5% WATER 50 ML IV SCH ×2 (01:20→14:11)
[2019-08-18 04:00] VITALS: BP 145/82
[2019-08-18] MEDS: MORPHINE SULFATE 2 MG/ML CPJ (NOT FOR IM USE) IV PRN ×4 (06:02→20:56)
[2019-08-18] MEDS: BLOOD SUGAR DIAGNOSTIC STRIP TEST SCH ×4 (07:11→20:53)
[2019-08-18 08:00] VITALS: BP 132/68
[2019-08-18] MEDS: ASPIRIN 325MG EC TABLET PO SCH (09:40)
[2019-08-18] MEDS: FAMOTIDINE 20MG TABLET PO SCH ×2 (09:40→20:52)
[2019-08-18] MEDS: ZINC SULFATE 220 MG ( 50 ) CAPSULE PO SCH (09:40)
[2019-08-18] MEDS: ARIPIPRAZOLE 5MG TABLET PO SCH (09:40)
[2019-08-18] MEDS: ASCORBIC ACID 500 MG TABLET PO SCH ×2 (09:41→20:52)
[2019-08-18] MEDS: GUAIFENESIN 600MG ER TABLET PO SCH ×2 (09:41→20:52)
[2019-08-18] MEDS: PREDNISONE 20MG TABLET PO SCH ×2 (09:41→18:10)
[2019-08-18] MEDS: FUROSEMIDE 40MG/4ML VIAL IVP SCH ×2 (09:41→20:53)
[2019-08-18] MEDS: INSULIN LISPRO 100 UNITS/ML SUBCUT SCH ×4 (09:42→21:21)
[2019-08-18] MEDS: ENOXAPARIN 30MG/0.3ML SYR SUBCUT SCH (09:43)
[2019-08-18 12:07] VITALS: BP 112/59
[2019-08-18 16:00] VITALS: BP 98/36
[2019-08-18 20:20] VITALS: BP 156/82
[2019-08-18] MEDS: LAMOTRIGINE 100MG TABLET PO SCH (20:52)
[2019-08-18] MEDS: ATORVASTATIN CALCIUM 40MG TABLET PO SCH (20:52)
[2019-08-18] MEDS: ENOXAPARIN 40MG/0.4ML SYR SUBCUT SCH (20:53)
[2019-08-19 00:06] VITALS: BP 130/81
[2019-08-19] MEDS: IPRATROPIUM/ALBUTEROL 0.5-3(2.5)MG/3ML NEB HHN SCH ×5 (00:35→16:20)
[2019-08-19] MEDS: CEFEPIME 1,000 MG in DEXTROSE 5% WATER 50 ML IV SCH ×2 (01:18→12:31)
[2019-08-19] MEDS: MORPHINE SULFATE 2 MG/ML CPJ (NOT FOR IM USE) IV PRN ×4 (02:11→16:29)
[2019-08-19 04:00] VITALS: BP 138/75
[2019-08-19] MEDS: BLOOD SUGAR DIAGNOSTIC STRIP TEST SCH ×3 (06:59→17:20)
[2019-08-19 08:22] VITALS: BP 176/98
[2019-08-19] MEDS: FUROSEMIDE 40MG/4ML VIAL IVP SCH (08:24)
[2019-08-19] MEDS: ASCORBIC ACID 500 MG TABLET PO SCH (08:24)
[2019-08-19] MEDS: ARIPIPRAZOLE 5MG TABLET PO SCH (08:24)
[2019-08-19] MEDS: ASPIRIN 325MG EC TABLET PO SCH (08:25)
[2019-08-19] MEDS: GUAIFENESIN 600MG ER TABLET PO SCH (08:25)
[2019-08-19] MEDS: PREDNISONE 20MG TABLET PO SCH (08:25)
[2019-08-19] MEDS: ENOXAPARIN 40MG/0.4ML SYR SUBCUT SCH (08:26)
[2019-08-19] MEDS: ZINC SULFATE 220 MG ( 50 ) CAPSULE PO SCH (08:26)
[2019-08-19] MEDS: FAMOTIDINE 20MG TABLET PO SCH (08:26)
[2019-08-19] MEDS: INSULIN LISPRO 100 UNITS/ML SUBCUT SCH ×3 (08:41→17:33)
[2019-08-19 11:34] VITALS: BP 132/84
[2019-08-19] MEDS ORDERED: AMLODIPINE 5MG TABLET PO SCH (15:00)
[2019-08-19 16:12] VITALS: BP 137/84
[2019-08-19 16:29] VITALS: BP 137/84
[2019-08-19] MEDS ORDERED: OSELTAMIVIR 75MG CAPSULE PO SCH (21:00)
[2019-08-20] MEDS ORDERED: PREDNISONE 20MG TABLET PO SCH (09:00)
== END 2019-08-19 17:56 | disposition left against medical advice (07) | DRG 871 ==
LOC: ER 12:17 → 6WST 17:56 → ENRESERV 18:21
PROVIDERS: ADMIT Internal Medicine; ATTEND Internal Medicine
PROC: 5A09457 Assistance with Respiratory Ventilation, 24-96 Consecutive Hours, Continuous Positive Airway Pressure (ICD-10-PCS; principal; 2019-08-17)
PROC: 5A09357 Assistance with Respiratory Ventilation, Less than 24 Consecutive Hours, Continuous Positive Airway Pressure (ICD-10-PCS; 2019-08-18)
DX: A41.9 Sepsis, unspecified organism (principal); J96.00 Acute respiratory failure, unspecified whether with hypoxia or hypercapnia; J18.1 Lobar pneumonia, unspecified organism; J44.1 Chronic obstructive pulmonary disease with (acute) exacerbation; J44.0 Chronic obstructive pulmonary disease with (acute) lower respiratory infection; I50.32 Chronic diastolic (congestive) heart failure; E11.9 Type 2 diabetes mellitus without complications; E78.00 Pure hypercholesterolemia, unspecified; F31.9 Bipolar disorder, unspecified; G47.33 Obstructive sleep apnea (adult) (pediatric); K21.9 Gastro-esophageal reflux disease without esophagitis; I27.20 Pulmonary hypertension, unspecified; Z96.641 Presence of right artificial hip joint; F41.9 Anxiety disorder, unspecified; Z96.653 Presence of artificial knee joint, bilateral; I11.0 Hypertensive heart disease with heart failure; F17.210 Nicotine dependence, cigarettes, uncomplicated; G60.0 Hereditary motor and sensory neuropathy; M19.90 Unspecified osteoarthritis, unspecified site; Z79.4 Long term (current) use of insulin; Z82.49 Family history of ischemic heart disease and other diseases of the circulatory system; Z82.5 Family history of asthma and other chronic lower respiratory diseases; Z91.11 Patient's noncompliance with dietary regimen; Z91.14 Patient's other noncompliance with medication regimen; Z99.3 Dependence on wheelchair; Z99.81 Dependence on supplemental oxygen; Z88.8 Allergy status to other drugs, medicaments and biological substances; Z88.6 Allergy status to analgesic agent; Z91.030 Bee allergy status; Z91.040 Latex allergy status; Z91.018 Allergy to other foods; Z79.01 Long term (current) use of anticoagulants; Z79.899 Other long term (current) drug therapy
CPT/HCPCS: 36415; 71045; 80305; 81003; 82550; 82553; 82962; 83605; 83880; 84145; 84484; 87070; 93005; 93970; 94640; 94660; 96374; 97162; 99285; J0456; J0692; J1650; J1815; J1940; J2270; J2930; J7030; J7060; J7512; J7620; A4315

== ENCOUNTER 2020-10-08 14:07 | Emergency (ER) | payer MEDICARE, MEDICAID ==
[~2020-10-08] VITALS: Ht 152.4 cm; Wt 100.0 kg
[~2020-10-08 14:07] MED LIST changes: -LAMO200T PO; +LAMO200T9 PO; -TOPI100T37 PO; -TRAZ150T78 PO
[2020-10-08] MEDS ORDERED: METHYLPREDNISOLONE SOD SUCC 125 MG/2 ML VIAL IV STA (15:16)
[2020-10-08] MEDS ORDERED: IPRATROPIUM BROMIDE (0.02%) 0.5MG/2.5ML NEB HHN STA (15:16)
[2020-10-08] MEDS ORDERED: ALBUTEROL (0.083%) 2.5MG/3ML NEB HHN STA (15:16)
[2020-10-08] MEDS ORDERED: MAGNESIUM 2 G PREMIX 50 ML IV ONE (15:30)
[2020-10-08 16:08] LABS: BASOPHILS % 0.2 % (0.0-2.0); HEMATOCRIT. 42.4 % (36.0-48.0); HEMOGLOBIN. 14.1 g/dL (12.0-16.0); LYMPHOCYTES % 10.6 % (20.0-50.0); MEAN CORPUSCULAR HEMOGLOBIN 29.1 pg (28.0-32.0); MEAN CORPUSCULAR VOLUME 87.4 fL (81.0-99.0); MEAN PLATELET VOLUME 7.6 fl (7.4-10.4); MONOCYTES % 4.3 % (2.0-8.0); NEUTROPHILS % 84.9 % (40.0-76.0); PLATELET 336 x1000/uL (130-400); RED BLOOD CELL COUNT 4.85 mill/uL (4.2-5.4)
[2020-10-08] MEDS ORDERED: MORPHINE SULFATE 4 MG/ML CPJ (NOT FOR IM USE) IV STA (16:38)
[2020-10-08] MEDS ORDERED: ONDANSETRON HCL 4MG/2ML INJ IV STA (16:38)
[2020-10-08 17:02] LABS: CHLORIDE 103 mEq/L (98-107)
[2020-10-08 18:43] VITALS: BP 156/96
== END 2020-10-08 18:52 | disposition left against medical advice (07) ==
LOC: ER 14:14 → EDBEDREQ 15:39 → CANBEDREQ 18:50 → ER 18:52
DX: U07.1 COVID-19 (principal); J44.1 Chronic obstructive pulmonary disease with (acute) exacerbation; I11.0 Hypertensive heart disease with heart failure; I50.9 Heart failure, unspecified; E78.5 Hyperlipidemia, unspecified; F17.210 Nicotine dependence, cigarettes, uncomplicated; Z71.6 Tobacco abuse counseling; Z79.899 Other long term (current) drug therapy; Z91.040 Latex allergy status; Z79.51 Long term (current) use of inhaled steroids; Z88.6 Allergy status to analgesic agent; Z91.030 Bee allergy status; Z91.018 Allergy to other foods
CPT/HCPCS: 36415; 71045; 80053; 83880; 84484; 85025; 85379; 87635; 93005; 94640; 96365; 96375; 99285; 99406; C9803; J2270; J2405; J2930; J3475

== ENCOUNTER 2020-10-11 15:01 | Emergency (ER) | payer MEDICARE, MEDICAID ==
[~2020-10-11] VITALS: Ht 162.6 cm; Wt 115.0 kg
[2020-10-11] MEDS ORDERED: IPRATROPIUM BROMIDE (0.02%) 0.5MG/2.5ML NEB HHN STA (15:41)
[2020-10-11] MEDS ORDERED: ALBUTEROL (0.083%) 2.5MG/3ML NEB HHN STA (15:41)
[2020-10-11] MEDS ORDERED: MORPHINE SULFATE 4 MG/ML CPJ (NOT FOR IM USE) IV ONE ×2 (15:45→18:00)
[2020-10-11] MEDS ORDERED: ONDANSETRON HCL 4MG/2ML INJ IV ONE (15:45)
[2020-10-11 16:41] LABS: HEMATOCRIT. 44.5 % (36.0-48.0); HEMOGLOBIN. 14.5 g/dL (12.0-16.0); MEAN CORPUSCULAR HEMOGLOBIN 29.4 pg (28.0-32.0); MEAN PLATELET VOLUME 7.3 fl (7.4-10.4); PLATELET 302 x1000/uL (130-400); RED BLOOD CELL COUNT 4.94 mill/uL (4.2-5.4)
[2020-10-11 16:56] LABS: CHLORIDE 102 mEq/L (98-107)
[2020-10-11 17:34] LABS: PLATELET ESTIMATE NORMAL
[2020-10-11 18:59] VITALS: BP 140/82
== END 2020-10-11 19:21 | disposition home or self-care (01) ==
LOC: ER 15:01
DX: U07.1 COVID-19 (principal); R07.89 Other chest pain; E78.00 Pure hypercholesterolemia, unspecified; J44.9 Chronic obstructive pulmonary disease, unspecified; I11.0 Hypertensive heart disease with heart failure; I50.9 Heart failure, unspecified; Z98.890 Other specified postprocedural states; Z96.659 Presence of unspecified artificial knee joint; Z79.899 Other long term (current) drug therapy; Z91.040 Latex allergy status; Z91.030 Bee allergy status; Z88.6 Allergy status to analgesic agent; Z88.8 Allergy status to other drugs, medicaments and biological substances
CPT/HCPCS: 36415; 71045; 80053; 84484; 85025; 96374; 96375; 96376; 99284; J2270; J2405

== ENCOUNTER 2020-10-12 02:49 | Emergency (ER) | payer MEDICARE, MEDICAID ==
[~2020-10-12] VITALS: Ht 160 cm; Wt 115.0 kg
[2020-10-12] MEDS ORDERED: HYDROCODONE/ACETAMINOPHEN 10/325MG TABLET PO ONE (03:30)
[2020-10-12 03:48] VITALS: BP 105/70
== END 2020-10-12 04:00 | disposition home or self-care (01) ==
LOC: ER 02:49
DX: U07.1 COVID-19 (principal); G89.29 Other chronic pain; M79.18 Myalgia, other site; F11.20 Opioid dependence, uncomplicated; R03.0 Elevated blood-pressure reading, without diagnosis of hypertension; E66.01 Morbid (severe) obesity due to excess calories; Z68.41 Body mass index [BMI] 40.0-44.9, adult
CPT/HCPCS: 93005; 99283

== ENCOUNTER 2020-10-17 13:21 | Emergency (ER) | payer MEDICARE, MEDICAID ==
[~2020-10-17] VITALS: Ht 162.6 cm; Wt 103.0 kg
[2020-10-17 14:34] LABS: BASOPHILS % 0.8 % (0.0-2.0); HEMATOCRIT. 43.9 % (36.0-48.0); HEMOGLOBIN. 14.3 g/dL (12.0-16.0); LYMPHOCYTES % 11.2 % (20.0-50.0); MEAN CORPUSCULAR HEMOGLOBIN 29.6 pg (28.0-32.0); MEAN CORPUSCULAR VOLUME 90.8 fL (81.0-99.0); MEAN PLATELET VOLUME 7.2 fl (7.4-10.4); PLATELET 343 x1000/uL (130-400); RED BLOOD CELL COUNT 4.83 mill/uL (4.2-5.4); RED CELL DISTRIBUTION WIDTH 17.3 % (11.6-14.6)
[2020-10-17 14:36] LABS: CHLORIDE 106 mEq/L (98-107)
[2020-10-17] MEDS ORDERED: ACETAMINOPHEN 325MG TABLET PO ONE (15:00)
[2020-10-17] MEDS ORDERED: MAGNESIUM/ALUMINUM HYDROXIDE/SIMETHICONE 30ML UDC PO PRN (15:45)
[2020-10-17] MEDS ORDERED: LORAZEPAM 0.5MG TABLET PO PRN (15:45)
[2020-10-17] MEDS ORDERED: DOCUSATE SODIUM 100MG CAPSULE PO PRN (15:45)
[2020-10-17] MEDS ORDERED: GUAIFENESIN/DM 600MG/30MG ER TAB 12HR PO SCH (15:45)
[2020-10-17] MEDS ORDERED: DEXAMETHASONE 4MG/ML 1ML VIAL IV ONE (15:45)
[2020-10-17] MEDS ORDERED: NA PHOS,M-B/NA PHOS,DI-BA ENEMA 118ML PR PRN (15:45)
[2020-10-17] MEDS ORDERED: ONDANSETRON HCL 4MG/2ML INJ IV PRN (15:45)
[2020-10-17] MEDS ORDERED: CLONIDINE 0.1MG TABLET PO PRN (15:45)
[2020-10-17] MEDS ORDERED: NITROGLYCERIN 0.4MG TABLET SL SL PRN (15:45)
[2020-10-17] MEDS ORDERED: ACETAMINOPHEN 325MG TABLET PO PRN ×2 (15:45)
[2020-10-17 16:04] LABS: BG BASE EXCESS 2.9 mmol/L (-2.0-2.0); BG CARBOXYHEMOGLOBIN 12.1 % (0.5-1.5); BG DEOXYHEMOGLOBIN 3.8 % (0.0-5.0); BG HCO3 ACT 29.3 mmol/L (22.0-26.0); BG METHEMOGLOBIN 0.3 % (0.0-1.5); BG OXYGEN SATURATION 95.7 % (92.0-98.5); BG OXYHEMOGLOBIN 83.8 % (94.0-97.0); BG PCO2 51.5 mmHg (35.0-45.0); BG PH 7.373 (7.350-7.450); BG PO2 74.1 mmHg (75.0-100.0); BG TOTAL HEMOGLOBIN 14.9 g/dL (12.0-18.0)
[2020-10-17] MEDS ORDERED: HYDROCODONE/APAP 7.5/325MG 1 TAB TABLET PO PRN (16:13)
[2020-10-17] MEDS ORDERED: DIPHENHYDRAMINE 25MG CAPSULE PO PRN (16:21)
[2020-10-17] MEDS ORDERED: CEFTRIAXONE 1 G PREMIX 50 ML IV SCH (16:30)
[2020-10-17] MEDS ORDERED: ALBUTEROL 6.7GM HFA INHALER ORI PRN (16:30)
[2020-10-17] MEDS ORDERED: MORPHINE SULFATE 2 MG/ML CPJ (NOT FOR IM USE) IV ONE (16:45)
[2020-10-17 16:49] VITALS: BP 137/76
[2020-10-17] MEDS ORDERED: ENOXAPARIN 30MG/0.3ML SYR SUBCUT SCH (18:00)
[2020-10-17] MEDS ORDERED: DILTIAZEM HCL 60MG TABLET PO SCH (18:00)
[2020-10-17] MEDS ORDERED: AZITHROMYCIN 500 MG in DEXT 5% WATER 250 ML IV SCH (18:00)
[2020-10-17] MEDS ORDERED: LAMOTRIGINE 100MG TABLET PO SCH (21:00)
[2020-10-17] MEDS ORDERED: ZOLPIDEM TARTRATE 5MG TABLET PO PRN (21:00)
[2020-10-17] MEDS ORDERED: FAMOTIDINE 20MG TABLET PO SCH (21:00)
[2020-10-17] MEDS ORDERED: ALBUTEROL 6.7GM HFA INHALER ORI SCH (21:00)
[2020-10-17] MEDS ORDERED: ATORVASTATIN CALCIUM 40MG TABLET PO SCH (21:00)
[2020-10-18] MEDS ORDERED: CHOLECALCIFEROL (D3) 1000 UNIT TABLET PO SCH (09:00)
[2020-10-18] MEDS ORDERED: DEXAMETHASONE 10 MG/ML VIAL IV SCH (09:00)
[2020-10-18] MEDS ORDERED: ZINC SULFATE 220 MG ( 50 ) CAPSULE PO SCH (09:00)
[2020-10-18] MEDS ORDERED: ASPIRIN 325MG EC TABLET PO SCH (09:00)
== END 2020-10-17 17:38 | disposition left against medical advice (07) ==
LOC: ER 13:27 → EDBEDREQ 15:43 → ER 17:38 → CANBEDREQ 19:41
DX: U07.1 COVID-19 (principal); R06.03 Acute respiratory distress; R09.02 Hypoxemia; G89.29 Other chronic pain; M54.5 Low back pain
CPT/HCPCS: 36415; 36600; 71045; 80053; 80061; 82375; 82805; 83036; 83880; 84484; 85025; 87040; 93005; 96365; 96375; 99291; J0696; J1100; J2270; 96366; J0456; J7060